=== PATIENT | male | born 1965 | race Caucasian/White ===

== ENCOUNTER 2019-02-10 16:21 | Emergency (ER) | payer MEDICARE ==
[2019-02-10] MEDS ORDERED: ONDANSETRON 4 MG/2 ML VIAL IVP STA (16:50)
[2019-02-10] MEDS ORDERED: SODIUM CHLORIDE 0.9% 500 ML 500 ML IV STA (16:50)
--- NOTE | 2019-02-10 17:07 | ED ---
Abdominal Pain HPI - General Chief Complaint: Abdominal Pain Stated Complaint: Abd Pain Time Seen by Provider: 02/10/19 16:38 Source: patient Mode of arrival: ambulatory Limitations: no limitations - History of Present Illness Initial Comments: Patient is a 54-year-old male presenting to the emergency Department complains of centralized abdominal pain as follows back pain, nausea, vomiting that started today. Patient has past medical history of hypertension, end-stage renal disease on dialysis, diabetes. Patient states he describes this pain as being a centralized in the abdomen that is eating referred to his back to both kidney areas. Patient denies any injuries or trauma to his back or abdomen. Patient does have a peritoneal dialysis port in place 2 months. Patient states he drank an ensure drink earlier this morning and then started noticing nausea and had episode of vomiting. Patient states that is when his abdominal and back pain started as well. Patient states he does have a history of kidney stones. Patient denies fever, chills, diarrhea, hematuria at this time. Patient has no other complaints at this time. Upon arrival to ER, vital signs are stable. - Related Data Allergies Allergy/AdvReac Type Severity Reaction Status Date / Time No Known Allergies Allergy Verified 02/10/19 16:37 Review of Systems ROS Statement: Those systems with pertinent positive or pertinent negative responses have been documented in the HPI. ROS Other: All systems not noted in ROS Statement are negative. Past Medical History Past Medical History: No Reported History, Diabetes Mellitus, Hypertension Additional Past Medical History / Comment(s): CHF. peritoneal port in abdomen. stage 4 kidney failure. History of Any Multi-Drug Resistant Organisms: None Reported Past Surgical History: Coronary Bypass/CABG, Heart Catheterization With Stent Additional Past Surgical History / Comment(s): Port in abdomen. Defibrillator. Hernia Repair - inguinal Past Psychological History: No Psychological Hx Reported Smoking Status: Never smoker Past Alcohol Use History: None Reported Past Drug Use History: None Reported General Exam - General Exam Comments Initial Comments: GENERAL: Well-appearing, well-nourished and in no acute distress. HEAD: Atraumatic, normocephalic. EYES: Pupils equal round and reactive to light, extraocular movements intact, sclera anicteric, conjunctiva are normal. ENT: TMs normal, nares patent, oropharynx clear without exudates. Moist mucous membranes. NECK: Normal range of motion, supple without lymphadenopathy or JVD. LUNGS: Breath sounds clear to auscultation bilaterally and equal. No wheezes rales or rhonchi. HEART: Regular rate and rhythm without murmurs, rubs or gallops. ABDOMEN: Peritoneal dialysis port in place, no signs of infection. Soft, nontender, normoactive bowel sounds. No guarding, no rebound. No masses appreciated. No pain to palpation in the lower back or flank area. : Deferred EXTREMITIES: Normal range of motion, no pitting or edema. No clubbing or cyanosis. NEUROLOGICAL: Cranial nerves II through XII grossly intact. Normal speech, normal gait. PSYCH: Normal mood, normal affect. SKIN: Warm, Dry, normal turgor, no rashes or lesions noted. Limitations: no limitations Course Vital Signs 02/10/19 02/10/19 16:33 18:21 Temperature 97.3 F L 97.1 F L Pulse Rate 66 65 Respiratory 16 18 Rate Blood Pressure 158/91 137/80 O2 Sat by Pulse 100 100 Oximetry Medical Decision Making - Medical Decision Making Patient is a 54-year-old male presenting with abdominal pain as radiating to low back that started this morning. Patient has history of diabetes, end-stage renal disease on dialysis, and hypertension. Patient states the pain started after he drank an ensure this morning. Vital signs are stable upon arrival, on exam patient has no tenderness to palpation of the abdomen or low back flank areas. Rest of exam is unremarkable.. He'll dialysis port is in place, no signs of infection. CBC, coags are within normal limits. Patient's BUN and creatinine are 48/4.10. Lipase is 303. UA shows 2+ protein otherwise normal. A she was given half a liter of fluids. Upon recheck patient states his symptoms have improved and he has no pain at all. I recommended patient to have an abdominal CT given his history and symptoms and patient declined, stating his pain is gone. Patient is stable for discharge at this time. Strict return parameters were discussed with the patient he verbalizes understanding and agreement. Case discussed with Dr. Del Angel. - Lab Data Result diagrams: 02/10/19 17:06 02/10/19 17:00 Lab Results 02/10/19 02/10/19 02/10/19 Range/Units 17:00 17:00 17:00 WBC (3.8-10.6) k/uL RBC (4.30-5.90) m/uL Hgb (13.0-17.5) gm/dL Hct (39.0-53.0) % MCV (80.0-100.0) fL MCH (25.0-35.0) pg MCHC (31.0-37.0) g/dL RDW (11.5-15.5) % Plt Count (150-450) k/uL Neutrophils % % Lymphocytes % % Monocytes % % Eosinophils % % Basophils % % Neutrophils # (1.3-7.7) k/uL Lymphocytes # (1.0-4.8) k/uL Monocytes # (0-1.0) k/uL Eosinophils # (0-0.7) k/uL Basophils # (0-0.2) k/uL PT 10.1 (9.0-12.0) sec INR 0.9 (<1.2) APTT 25.6 (22.0-30.0) sec Sodium 142 (137-145) mmol/L Potassium 5.1 (3.5-5.1) mmol/L Chloride 104 (98-107) mmol/L Carbon Dioxide 28 (22-30) mmol/L Anion Gap 10 mmol/L BUN 48 H (9-20) mg/dL Creatinine 4.10 H (0.66-1.25) mg/dL Est GFR (CKD-EPI)AfAm 18 (>60 ml/min/1.73 sqM) Est GFR (CKD-EPI)NonAf 15 (>60 ml/min/1.73 sqM) Glucose 94 (74-99) mg/dL Calcium 9.0 (8.4-10.2) mg/dL Total Bilirubin 0.5 (0.2-1.3) mg/dL AST 34 (17-59) U/L ALT 34 (21-72) U/L Alkaline Phosphatase 71 (38-126) U/L Total Protein 7.0 (6.3-8.2) g/dL Albumin 4.3 (3.5-5.0) g/dL Amylase 64 (30-110) U/L Lipase 303 H (23-300) U/L Urine Color Light Yellow Urine Appearance Clear (Clear) Urine pH 7.5 (5.0-8.0) Ur Specific [place] 1.009 (1.001-1.035) Urine Protein 2+ H (Negative) Urine Glucose (UA) Negative (Negative) Urine Ketones Negative (Negative) Urine Blood Negative (Negative) Urine Nitrite Negative (Negative) Urine Bilirubin Negative (Negative) Urine Urobilinogen <2.0 (<2.0) mg/dL Ur Leukocyte Esterase Negative (Negative) Urine RBC 1 (0-5) /hpf Urine WBC 1 (0-5) /hpf 02/10/19 Range/Units 17:06 WBC 7.2 (3.8-10.6) k/uL RBC 3.90 L (4.30-5.90) m/uL Hgb 12.2 L (13.0-17.5) gm/dL Hct 36.3 L (39.0-53.0) % MCV 93.2 (80.0-100.0) fL MCH 31.4 (25.0-35.0) pg MCHC 33.7 (31.0-37.0) g/dL RDW 15.9 H (11.5-15.5) % Plt Count 173 (150-450) k/uL Neutrophils % 73 % Lymphocytes % 16 % Monocytes % 6 % Eosinophils % 4 % Basophils % 1 % Neutrophils # 5.2 (1.3-7.7) k/uL Lymphocytes # 1.1 (1.0-4.8) k/uL Monocytes # 0.4 (0-1.0) k/uL Eosinophils # 0.3 (0-0.7) k/uL Basophils # 0.0 (0-0.2) k/uL PT (9.0-12.0) sec INR (<1.2) APTT (22.0-30.0) sec Sodium (137-145) mmol/L Potassium (3.5-5.1) mmol/L Chloride (98-107) mmol/L Carbon Dioxide (22-30) mmol/L Anion Gap mmol/L BUN (9-20) mg/dL Creatinine (0.66-1.25) mg/dL Est GFR (CKD-EPI)AfAm (>60 ml/min/1.73 sqM) Est GFR (CKD-EPI)NonAf (>60 ml/min/1.73 sqM) Glucose (74-99) mg/dL Calcium (8.4-10.2) mg/dL Total Bilirubin (0.2-1.3) mg/dL AST (17-59) U/L ALT (21-72) U/L Alkaline Phosphatase (38-126) U/L Total Protein (6.3-8.2) g/dL Albumin (3.5-5.0) g/dL Amylase (30-110) U/L Lipase (23-300) U/L Urine Color Urine Appearance (Clear) Urine pH (5.0-8.0) Ur Specific [place] (1.001-1.035) Urine Protein (Negative) Urine Glucose (UA) (Negative) Urine Ketones (Negative) Urine Blood (Negative) Urine Nitrite (Negative) Urine Bilirubin (Negative) Urine Urobilinogen (<2.0) mg/dL Ur Leukocyte Esterase (Negative) Urine RBC (0-5) /hpf Urine WBC (0-5) /hpf Disposition Clinical Impression: Abdominal pain Disposition: HOME SELF-CARE Condition: Stable Instructions (If sedation given, give patient instructions): Abdominal Pain (ED) Additional Instructions: Please return to the Emergency Department if symptoms worsen or any other concerns. Follow-up with Dr. goncalves as needed Is patient prescribed a controlled substance at d/c from ED?: No Referrals: Ellen Mccartney DO [Primary Care Provider] - 1-2 days
[2019-02-10 17:17] LABS: Basophils % (A) 1 %; Eosinophils # (A) 0.3 k/uL (0-0.7); Eosinophils % (A) 4 %; HCT 36.3 % (39.0-53.0); HGB 12.2 gm/dL (13.0-17.5); Lymphocytes # (A) 1.1 k/uL (1.0-4.8); Lymphocytes % (A) 16 %; MCH 31.4 pg (25.0-35.0); MCHC 33.7 g/dL (31.0-37.0); MCV 93.2 fL (80.0-100.0); Monocytes # (A) 0.4 k/uL (0-1.0); Monocytes % (A) 6 %; Neutrophils # (A) 5.2 k/uL (1.3-7.7); Neutrophils % (A) 73 %; Platelet Count 173 k/uL (150-450); RDW 15.9 % (11.5-15.5); WBC 7.2 k/uL (3.8-10.6)
[2019-02-10 17:24] LABS: Appearance,Urine Clear (Clear); Bilirubin,Urine Negative (Negative); Blood,Urine Negative (Negative); Color,Urine Light Yellow; Glucose,Urine (UA) Negative (Negative); Ketones,Urine Negative (Negative); Leukocyte Esterase,Urine Negative (Negative); Nitrite,Urine Negative (Negative); PH, Urine 7.5 (5.0-8.0); Protein,Urine 2+ (Negative); RBC,Urine 1 /hpf (0-5); Specific Gravity,Urine 1.009 (1.001-1.035); Urobilinogen,Urine <2.0 mg/dL (<2.0)
[2019-02-10 17:26] LABS: INR 0.9 (<1.2); Partial Thromboplastin Time 25.6 sec (22.0-30.0); Prothrombin Time 10.1 sec (9.0-12.0)
[2019-02-10 17:31] LABS: Albumin 4.3 g/dL (3.5-5.0); Potassium 5.1 mmol/L (3.5-5.1); Total Bilirubin 0.5 mg/dL (0.2-1.3)
[2019-02-10 18:22] VITALS: BP 137/80; PULSE 65; RESP 18; TEMP 97.1
== END 2019-02-10 18:50 | disposition home or self-care (01) ==
LOC: EC 16:21
DX: R10.9 Unspecified abdominal pain (principal); R11.2 Nausea with vomiting, unspecified; M54.9 Dorsalgia, unspecified; I13.2 Hypertensive heart and chronic kidney disease with heart failure and with stage 5 chronic kidney disease, or end stage renal disease; I50.9 Heart failure, unspecified; N18.6 End stage renal disease; E11.22 Type 2 diabetes mellitus with diabetic chronic kidney disease; Z99.2 Dependence on renal dialysis; Z95.1 Presence of aortocoronary bypass graft; Z95.5 Presence of coronary angioplasty implant and graft; Z95.810 Presence of automatic (implantable) cardiac defibrillator; Z98.890 Other specified postprocedural states; Z87.442 Personal history of urinary calculi
CPT/HCPCS: 36415; 80053; 82150; 83690; 85025; 85610; 85730; 81001; 99284; 96374; 96361; J2405

== ENCOUNTER 2019-05-10 16:59 | Emergency (ER) | payer MEDICARE, BC ==
[2019-05-10 18:03] LABS: Basophils # (A) 0.1 k/uL (0-0.2); Basophils % (A) 2 %; Eosinophils # (A) 0.2 k/uL (0-0.7); Eosinophils % (A) 5 %; HCT 38.5 % (39.0-53.0); HGB 12.7 gm/dL (13.0-17.5); Lymphocytes # (A) 1.4 k/uL (1.0-4.8); Lymphocytes % (A) 30 %; MCH 30.8 pg (25.0-35.0); MCV 93.5 fL (80.0-100.0); Mean Platelet Volume 8.3; Monocytes # (A) 0.4 k/uL (0-1.0); Monocytes % (A) 8 %; Neutrophils # (A) 2.5 k/uL (1.3-7.7); Neutrophils % (A) 54 %; Platelet Count 181 k/uL (150-450); RBC 4.12 m/uL (4.30-5.90); WBC 4.7 k/uL (3.8-10.6)
[2019-05-10 18:07] LABS: Albumin 3.6 g/dL (3.5-5.0); Calcium 8.2 mg/dL (8.4-10.2); Potassium 5.3 mmol/L (3.5-5.1); Total Bilirubin 0.7 mg/dL (0.2-1.3); Total Protein 6.2 g/dL (6.3-8.2)
[2019-05-10 18:29] VITALS: RESP 18
[2019-05-10] MEDS ORDERED: CEFDINIR 300 MG CAP PO STA (18:41)
[2019-05-10] MEDS ORDERED: LEVOFLOXACIN 250 MG TAB PO STA (18:46)
--- NOTE | 2019-05-10 19:04 | ED ---
General Adult HPI - General Chief complaint: ENT Stated complaint: Ear pain/infection Time Seen by Provider: 05/10/19 17:09 Source: patient, RN notes reviewed, old records reviewed Mode of arrival: ambulatory Limitations: no limitations - History of Present Illness Initial comments: 54-year-old male patient with extensive past history including type 1 diabetes, chronic kidney disease on peritoneal dialysis, congestive heart failure presents to ED for chief complaint of right otalgia. Patient reports that began on Monday. Patient was seen by his primary care provider where he was started on Augmentin and a in her ear CAT scan without contrast was ordered. Patient reports that on Monday he loses tympanic membrane ruptured. Patient had approximately 2 days of otorrhea decreased hearing out of the right ear. Patient has not yet followed up with ENT. Patient reports that the pain is regular has been worse, called his primary care provider and was recommended to present to the emergency department. Denies any other complaints at this time. Systemic: Pt denies fatigue, fever/chills, rash. Pt denies weakness, night sweats, weight loss. Neuro: Pt denies headache, visual disturbances, syncope or pre-syncope. HEENT: Pt denies ocular discharge or irritation, otalgia, rhinorrhea, pharyngitis or notable lymphadenopathy. Cardiopulmonary: Pt denies chest pain, SOB, heart palpitations, dyspnea on exertion. Abdominal/GI: Pt denies abdominal pain, n/v/d. : Pt denies dysuria, burning w/ urination, frequency/urgency. Denies new onset urinary or bowel incontinence. MSK: Pt denies myalgia, loss of strength or function in extremities. Neuro: Pt denies new onset weakness, paresthesias. - Related Data Previous Rx's Medication Instructions Recorded Amoxicillin/Potassium Clav 1 tab PO Q24HR 10 Days #10 tab 05/10/19 [Augmentin 500-125 Tablet] Levofloxacin [Levaquin] 250 mg PO Q24HR 10 Days #5 tab 05/10/19 Allergies Allergy/AdvReac Type Severity Reaction Status Date / Time fish oil Allergy Chest Pain Verified 05/10/19 17:08 promethazine [From Phenergan] Allergy Hallucinati Verified 05/10/19 17:08 ons Review of Systems ROS Statement: Those systems with pertinent positive or pertinent negative responses have been documented in the HPI. ROS Other: All systems not noted in ROS Statement are negative. Past Medical History Past Medical History: No Reported History, Diabetes Mellitus, Hypertension Additional Past Medical History / Comment(s): CHF. peritoneal port in abdomen. stage 4 kidney failure. History of Any Multi-Drug Resistant Organisms: None Reported Past Surgical History: Coronary Bypass/CABG, Heart Catheterization With Stent Additional Past Surgical History / Comment(s): Port in abdomen. Defibrillator. Hernia Repair - inguinal Past Psychological History: No Psychological Hx Reported Smoking Status: Never smoker Past Alcohol Use History: None Reported Past Drug Use History: None Reported General Exam - General Exam Comments Initial Comments: Constitutional: NAD, AOX3, Pt has pleasant affect. HEENT: NC/AT, trachea midline, neck supple, no lymphadenopathy. Posterior pharynx non erythematous, without exudates. External ears appear normal, without discharge. Mucous membranes moist. Eyes PERRLA, EOM intact. There is no scleral icterus. No pallor noted. Cardiopulmonary: RRR, no murmurs, rubs or gallops, no JVD noted. Lungs CTAB in anterior and posterior munoz. No peripheral edema. Abdominal exam: Abdomen soft and non-distended. Abdomen non-tender to palpation in all 4 quadrants. Bowel sounds active in LLQ. No hepatosplenomegaly. No ecchymosis Neuro: CN II-XII grossly intact. No nuchal rigidity. No raccon eyes, no xiong sign, no hemotympanum. No cervical spinal tenderness. MSK: No posterior calf tenderness bilaterally, homans sign negative bilaterally. Posterior tibialis and radial pulse +2 bilaterally. Sensation intact in upper and lower extremities. Full active ROM in upper and lower extremities, 5/5 stregnth. Limitations: no limitations Course Vital Signs 05/10/19 05/10/19 17:03 18:27 Temperature 97.9 F Pulse Rate 63 67 Respiratory 20 18 Rate Blood Pressure 154/90 121/77 O2 Sat by Pulse 100 97 Oximetry Medical Decision Making - Medical Decision Making 54-year-old male patient presented for chief complaint of right ear pain. Patient was seen by his primary on Monday. Augmentin. Patient had a CT of the interview without contrast, then Augmentin sounds. A 2 days of otorrhea which is stopped today. Reports the pain is still bad. Called his primary recommended presentation to emergency department. Patient vital signs stable, afebrile. Physical exam consistent with right otitis media with perforation. Discussed case with patient's primary care provider Ellen Mccartney. She stated that patient had a CAT scan of the review without contrast which displayed possible otitis media, possible mastoiditis. She also reports that patient was instructed to follow up with ENT however they have not. She states that he called the office complaining continued pain today and they recommended prevent the emergency department. Physical exam this time does not display any signs of mastoiditis. Lymphatic investigations are stable at this time. Moderately elevated glucose. Creatinine around baseline. Mildly elevated potassium of 5.3. EKG nonischemic. Patient will have peritoneal dialysis tonight. Levaquin will be added on a shins antibiotics. Will continue to take Augmentin. Will fo llow up with ENT tomorrow. We'll turn the ER physician worsens. Case discussed with Dr. Dumont. - Lab Data Result diagrams: 05/10/19 17:45 05/10/19 17:45 Lab Results 05/10/19 05/10/19 05/10/19 Range/Units 17:45 17:45 17:45 WBC 4.7 (3.8-10.6) k/uL RBC 4.12 L (4.30-5.90) m/uL Hgb 12.7 L (13.0-17.5) gm/dL Hct 38.5 L (39.0-53.0) % MCV 93.5 (80.0-100.0) fL MCH 30.8 (25.0-35.0) pg MCHC 33.0 (31.0-37.0) g/dL RDW 13.0 (11.5-15.5) % Plt Count 181 (150-450) k/uL Neutrophils % 54 % Lymphocytes % 30 % Monocytes % 8 % Eosinophils % 5 % Basophils % 2 % Neutrophils # 2.5 (1.3-7.7) k/uL Lymphocytes # 1.4 (1.0-4.8) k/uL Monocytes # 0.4 (0-1.0) k/uL Eosinophils # 0.2 (0-0.7) k/uL Basophils # 0.1 (0-0.2) k/uL Sodium 135 L (137-145) mmol/L Potassium 5.3 H (3.5-5.1) mmol/L Chloride 102 (98-107) mmol/L Carbon Dioxide 25 (22-30) mmol/L Anion Gap 8 mmol/L BUN 49 H (9-20) mg/dL Creatinine 4.11 H (0.66-1.25) mg/dL Est GFR (CKD-EPI)AfAm 18 (>60 ml/min/1.73 sqM) Est GFR (CKD-EPI)NonAf 15 (>60 ml/min/1.73 sqM) Glucose 238 H (74-99) mg/dL Plasma Lactic Acid Antoni 1.0 (0.7-2.0) mmol/L Calcium 8.2 L (8.4-10.2) mg/dL Total Bilirubin 0.7 (0.2-1.3) mg/dL AST 35 (17-59) U/L ALT 18 (4-49) U/L Alkaline Phosphatase 76 (38-126) U/L Total Protein 6.2 L (6.3-8.2) g/dL Albumin 3.6 (3.5-5.0) g/dL - EKG Data -: EKG Interpreted by Me (and Dr. Dumont ) EKG Comments: ventricular rate 65, [place] interval 202, QRS 134, QT/QTc 466 S4 84. Normal sensation, nonspecific intraventricular block. T wave abnormality. No concern for acute ischemia at this time. Disposition Clinical Impression: Acute otitis media with perforated tympanic membrane Disposition: HOME SELF-CARE Condition: Stable Instructions (If sedation given, give patient instructions): Ear Infection (ED), Ruptured Eardrum (ED) Additional Instructions: continue to take antbiotics as directed. Follow up with primary care provider tomorrow. Follow up with ENT tomorrow. Return to ER if condition worsens. Prescriptions: Amoxicillin/Potassium Clav [Augmentin 500-125 Tablet] 1 tab PO Q24HR 10 Days #10 tab Levofloxacin [Levaquin] 250 mg PO Q24HR 10 Days #5 tab Is patient prescribed a controlled substance at d/c from ED?: No Referrals: Ellen Mccartney DO [Primary Care Provider] - 1-2 days Serafin Tobias MD [STAFF PHYSICIAN] - 1-2 days
[2019-05-10] MEDS ORDERED: ACET/COD 300 MG/30 MG STARTER PACK 6 TAB BTL PO STA (19:16)
--- NOTE | 2019-05-10 19:16 | ED ---
Medical Decision Making - Medical Decision Making Constitutional: NAD, AOX3, Pt has pleasant affect. HEENT: NC/AT, trachea midline, neck supple, no lymphadenopathy. Posterior pharynx non erythematous, without exudates. External ears appear normal, without discharge. right tympanic membrane mildly erythematous, consistent with perfo ration. Left tympanic membrane pale higgins, or discharge. No mastoid tenderness or erythema bilaterally.Mucous membranes moist. Eyes PERRLA, EOM intact. There is no scleral icterus. No pallor noted. Cardiopulmonary: RRR, no murmurs, rubs or gallops, no JVD noted. Lungs CTAB in anterior and posterior munoz. No peripheral edema. Abdominal exam: Abdomen soft and non-distended. Abdomen non-tender to palpation in all 4 quadrants. Bowel sounds active in LLQ. No hepatosplenomegaly. No ecchymosis Neuro: CN II-XII grossly intact. No nuchal rigidity. No raccon eyes, no xiong sign, no hemotympanum. No cervical spinal tenderness. MSK: No posterior calf tenderness bilaterally, homans sign negative bilaterally. Posterior tibialis and radial pulse +2 bilaterally. Sensation intact in upper and lower extremities. Full active ROM in upper and lower extremities, 5/5 stregnth. - Lab Data Result diagrams: 05/10/19 17:45 05/10/19 17:45 Lab Results 05/10/19 05/10/19 05/10/19 Range/Units 17:45 17:45 17:45 WBC 4.7 (3.8-10.6) k/uL RBC 4.12 L (4.30-5.90) m/uL Hgb 12.7 L (13.0-17.5) gm/dL Hct 38.5 L (39.0-53.0) % MCV 93.5 (80.0-100.0) fL MCH 30.8 (25.0-35.0) pg MCHC 33.0 (31.0-37.0) g/dL RDW 13.0 (11.5-15.5) % Plt Count 181 (150-450) k/uL Neutrophils % 54 % Lymphocytes % 30 % Monocytes % 8 % Eosinophils % 5 % Basophils % 2 % Neutrophils # 2.5 (1.3-7.7) k/uL Lymphocytes # 1.4 (1.0-4.8) k/uL Monocytes # 0.4 (0-1.0) k/uL Eosinophils # 0.2 (0-0.7) k/uL Basophils # 0.1 (0-0.2) k/uL Sodium 135 L (137-145) mmol/L Potassium 5.3 H (3.5-5.1) mmol/L Chloride 102 (98-107) mmol/L Carbon Dioxide 25 (22-30) mmol/L Anion Gap 8 mmol/L BUN 49 H (9-20) mg/dL Creatinine 4.11 H (0.66-1.25) mg/dL Est GFR (CKD-EPI)AfAm 18 (>60 ml/min/1.73 sqM) Est GFR (CKD-EPI)NonAf 15 (>60 ml/min/1.73 sqM) Glucose 238 H (74-99) mg/dL Plasma Lactic Acid Antoni 1.0 (0.7-2.0) mmol/L Calcium 8.2 L (8.4-10.2) mg/dL Total Bilirubin 0.7 (0.2-1.3) mg/dL AST 35 (17-59) U/L ALT 18 (4-49) U/L Alkaline Phosphatase 76 (38-126) U/L Total Protein 6.2 L (6.3-8.2) g/dL Albumin 3.6 (3.5-5.0) g/dL Disposition Clinical Impression: Acute otitis media with perforated tympanic membrane Disposition: HOME SELF-CARE Condition: Stable Instructions (If sedation given, give patient instructions): Ruptured Eardrum (ED), Ear Infection (ED) Additional Instructions: continue to take antbiotics as directed. Follow up with primary care provider tomorrow. Follow up with ENT tomorrow. Return to ER if condition worsens. Prescriptions: Amoxicillin/Potassium Clav [Augmentin 500-125 Tablet] 1 tab PO Q24HR 10 Days #10 tab Levofloxacin [Levaquin] 250 mg PO DIRECTED 10 Days #5 tab Is patient prescribed a controlled substance at d/c from ED?: No Referrals: Ellen Mccartney DO [Primary Care Provider] - 1-2 days Serafin Tobias MD [STAFF PHYSICIAN] - 1-2 days
[2019-05-10 19:23] VITALS: BP 122/73; PULSE 63; TEMP 98.4
== END 2019-05-10 19:24 | disposition home or self-care (01) ==
LOC: EC 16:59
DX: H66.91 Otitis media, unspecified, right ear (principal); H72.91 Unspecified perforation of tympanic membrane, right ear; E10.65 Type 1 diabetes mellitus with hyperglycemia; E87.5 Hyperkalemia; I13.0 Hypertensive heart and chronic kidney disease with heart failure and stage 1 through stage 4 chronic kidney disease, or unspecified chronic kidney disease; E10.22 Type 1 diabetes mellitus with diabetic chronic kidney disease; N18.4 Chronic kidney disease, stage 4 (severe); I50.9 Heart failure, unspecified; Z99.2 Dependence on renal dialysis; Z91.013 Allergy to seafood; Z88.8 Allergy status to other drugs, medicaments and biological substances; Z95.1 Presence of aortocoronary bypass graft; Z95.5 Presence of coronary angioplasty implant and graft; Z95.810 Presence of automatic (implantable) cardiac defibrillator
CPT/HCPCS: 36415; 80053; 83605; 85025; 87040; 93005; 99284

== ENCOUNTER 2019-10-14 12:09 | Inpatient (IN) | payer MEDICARE, BC ==
[2019-10-14] MEDS ORDERED: ONDANSETRON 4 MG/2 ML VIAL IVP STA (12:40)
[2019-10-14] MEDS ORDERED: SODIUM CHLORIDE 0.9% 500 ML 500 ML IV STA (12:40)
[2019-10-14] MEDS ORDERED: FAMOTIDINE 20 MG/2 ML VIAL IV STA (12:40)
--- NOTE | 2019-10-14 12:47 | ED ---
Recheck HPI - General Chief Complaint: Recheck/Abnormal Lab/Rx Stated Complaint: dehydration Time Seen by Provider: 10/14/19 12:26 Source: patient, RN notes reviewed Mode of arrival: ambulatory Limitations: no limitations - History of Present Illness Initial Comments: This a 54-year-old male presents emergency Department with concerns of possible dehydration. Patient states his started on a statin drug by his PCP on states he vomited all day and Monday. Patient states he does still feels dehydrated. Patient states that his veins do not his biggest usual. He states he still been doing his peritoneal dialysis. Patient states that he does feel somewhat improved but just not his usual self. No chest pain or shortness breath no headache or dizziness. No fevers chills. - Related Data Previous Rx's Medication Instructions Recorded Amoxicillin/Potassium Clav 1 tab PO Q24HR 10 Days #10 tab 05/10/19 [Augmentin 500-125 Tablet] Levofloxacin [Levaquin] 250 mg PO DIRECTED 10 Days #5 05/10/19 tab Allergies Allergy/AdvReac Type Severity Reaction Status Date / Time fish oil Allergy Chest Pain Verified 10/14/19 12:17 promethazine [From Phenergan] Allergy Hallucinati Verified 10/14/19 12:17 ons Review of Systems ROS Statement: Those systems with pertinent positive or pertinent negative responses have been documented in the HPI. ROS Other: All systems not noted in ROS Statement are negative. Past Medical History Past Medical History: Diabetes Mellitus, Hypertension Additional Past Medical History / Comment(s): CHF. peritoneal port in abdomen. stage 4 kidney failure. History of Any Multi-Drug Resistant Organisms: None Reported Past Surgical History: Coronary Bypass/CABG, Heart Catheterization With Stent Additional Past Surgical History / Comment(s): Port in abdomen. Defibrillator. Hernia Repair - inguinal Past Psychological History: No Psychological Hx Reported Smoking Status: Never smoker Past Alcohol Use History: None Reported Past Drug Use History: None Reported General Exam Limitations: no limitations General appearance: alert, in no apparent distress Head exam: Present: atraumatic, normocephalic, normal inspection Eye exam: Present: normal appearance, PERRL, EOMI. Absent: scleral icterus, conjunctival injection, periorbital swelling ENT exam: Present: normal exam, normal oropharynx, mucous membranes moist Neck exam: Present: normal inspection. Absent: tenderness, meningismus, lymphadenopathy Respiratory exam: Present: normal lung sounds bilaterally. Absent: respiratory distress, wheezes, rales, rhonchi, stridor Cardiovascular Exam: Present: regular rate, normal rhythm, normal heart sounds. Absent: systolic murmur, diastolic murmur, rubs, gallop, clicks GI/Abdominal exam: Present: soft, normal bowel sounds, other (Peritoneal catheter noted, no erythema no purulent drainage). Absent: distended, tenderness, guarding, rebound, rigid Back exam: Absent: CVA tenderness (R), CVA tenderness (L) Neurological exam: Present: alert, oriented X3 Skin exam: Present: warm, dry, intact, normal color. Absent: rash Course Vital Signs 10/14/19 10/14/19 12:14 14:30 Temperature 98.0 F Pulse Rate 69 66 Respiratory 18 18 Rate Blood Pressure 131/83 126/80 O2 Sat by Pulse 100 98 Oximetry Medical Decision Making - Medical Decision Making 53-year-old male presents to emergency from for dehydration. Patient's found to have cranial 9.3 which is increased from his baseline, hyperkalemia. Patient's case discussed with on-call refractory grinder operator Dr. Hogan who recommended to treat the hyperkalemia and had patient admitted. - Lab Data Result diagrams: 10/14/19 13:30 10/14/19 13:30 Lab Results 10/14/19 10/14/19 10/14/19 Range/Units 13:30 13:30 13:39 WBC 3.9 (3.8-10.6) k/uL RBC 4.21 L (4.30-5.90) m/uL Hgb 12.6 L (13.0-17.5) gm/dL Hct 39.5 (39.0-53.0) % MCV 93.8 (80.0-100.0) fL MCH 30.0 (25.0-35.0) pg MCHC 32.0 (31.0-37.0) g/dL RDW 12.9 (11.5-15.5) % Plt Count 149 L (150-450) k/uL Neutrophils % 53 % Lymphocytes % 30 % Monocytes % 9 % Eosinophils % 4 % Basophils % 1 % Neutrophils # 2.1 (1.3-7.7) k/uL Lymphocytes # 1.2 (1.0-4.8) k/uL Monocytes # 0.4 (0-1.0) k/uL Eosinophils # 0.2 (0-0.7) k/uL Basophils # 0.0 (0-0.2) k/uL Sodium 133 L (137-145) mmol/L Potassium 6.1 H* (3.5-5.1) mmol/L Chloride 97 L (98-107) mmol/L Carbon Dioxide 26 (22-30) mmol/L Anion Gap 10 mmol/L BUN 57 H (9-20) mg/dL Creatinine 9.13 H* (0.66-1.25) mg/dL Est GFR (CKD-EPI)AfAm 7 (>60 ml/min/1.73 sqM) Est GFR (CKD-EPI)NonAf 6 (>60 ml/min/1.73 sqM) Glucose 128 H (74-99) mg/dL Calcium 7.3 L (8.4-10.2) mg/dL Total Bilirubin 0.5 (0.2-1.3) mg/dL AST 23 (17-59) U/L ALT 41 (4-49) U/L Alkaline Phosphatase 90 (38-126) U/L Total Protein 5.9 L (6.3-8.2) g/dL Albumin 3.4 L (3.5-5.0) g/dL Lipase 343 H (23-300) U/L Urine Color Light Yellow Urine Appearance Clear (Clear) Urine pH 8.0 (5.0-8.0) Ur Specific [place] 1.004 (1.001-1.035) Urine Protein 1+ H (Negative) Urine Glucose (UA) Negative (Negative) Urine Ketones Negative (Negative) Urine Blood Trace H (Negative) Urine Nitrite Negative (Negative) Urine Bilirubin Negative (Negative) Urine Urobilinogen <2.0 (<2.0) mg/dL Ur Leukocyte Esterase Negative (Negative) Urine RBC <1 (0-5) /hpf Urine WBC 1 (0-5) /hpf Disposition Clinical Impression: Hyperkalemia, Acute on chronic renal failure Disposition: ADMITTED IP TO THIS [facility] Condition: Fair Referrals: Ellen Mccartney DO [Primary Care Provider] - 1-2 days
[2019-10-14 13:45] LABS: Basophils % (A) 1 %; Eosinophils # (A) 0.2 k/uL (0-0.7); Eosinophils % (A) 4 %; HCT 39.5 % (39.0-53.0); HGB 12.6 gm/dL (13.0-17.5); Lymphocytes # (A) 1.2 k/uL (1.0-4.8); Lymphocytes % (A) 30 %; MCV 93.8 fL (80.0-100.0); Mean Platelet Volume 8.9; Monocytes # (A) 0.4 k/uL (0-1.0); Monocytes % (A) 9 %; Neutrophils # (A) 2.1 k/uL (1.3-7.7); Neutrophils % (A) 53 %; Platelet Count 149 k/uL (150-450); RBC 4.21 m/uL (4.30-5.90); RDW 12.9 % (11.5-15.5); WBC 3.9 k/uL (3.8-10.6)
[2019-10-14 13:48] LABS: Appearance,Urine Clear (Clear); Bilirubin,Urine Negative (Negative); Blood,Urine Trace (Negative); Color,Urine Light Yellow; Glucose,Urine (UA) Negative (Negative); Ketones,Urine Negative (Negative); Leukocyte Esterase,Urine Negative (Negative); Nitrite,Urine Negative (Negative); Protein,Urine 1+ (Negative); RBC,Urine <1 /hpf (0-5); Specific Gravity,Urine 1.004 (1.001-1.035); Urobilinogen,Urine <2.0 mg/dL (<2.0); WBC,Urine 1 /hpf (0-5)
[2019-10-14 13:57] LABS: Albumin 3.4 g/dL (3.5-5.0); Calcium 7.3 mg/dL (8.4-10.2); Total Bilirubin 0.5 mg/dL (0.2-1.3); Total Protein 5.9 g/dL (6.3-8.2)
[2019-10-14 14:18] LABS: Potassium 6.1 mmol/L (3.5-5.1)
[2019-10-14] MEDS ORDERED: DEXTROSE 50% SYRINGE 50 ML IVP ONE (15:18)
[2019-10-14] MEDS ORDERED: CALCIUM GLUCONATE 1 GM in SODIUM CHLORIDE 0.9% 100 ML IVPB ONE (15:18)
[2019-10-14] MEDS ORDERED: INSULIN REGULAR 100 UNIT/ML VIAL IV ONE (15:18)
[2019-10-14] MEDS ORDERED: NALOXONE 0.4 MG/ML 1 ML VIAL IV PRN (15:22)
[2019-10-14 19:38] LABS: Glucose,Whole Blood 88 mg/dL (75-99)
[2019-10-14] MEDS ORDERED: NITROGLYCERIN SL TABS 0.4 MG TAB SUBLINGUAL PRN (20:26)
[2019-10-14] MEDS ORDERED: DIAZEPAM 5 MG TAB PO PRN (20:26)
[2019-10-14] MEDS ORDERED: HYDROcodone/APAP 5-325MG 1 EACH TAB PO PRN (20:27)
[2019-10-14] MEDS ORDERED: Insulin Aspart (For Pump) 100 UNIT/ML VIAL SQ-PUMP SCH (20:30)
[2019-10-14 20:42] LABS: Glucose,Whole Blood 94 mg/dL (75-99)
[2019-10-14] MEDS: DIALYSIS (PERIT 1.5%) 2,000 ML 30 G/2,000 ML BAG INTRAPERIT SCH (21:14)
[2019-10-14 21:32] LABS: INR 0.9 (<1.2); Prothrombin Time 9.7 sec (9.0-12.0)
[2019-10-14] MEDS: RANOLAZINE 500 MG TAB.ER.12H PO SCH (21:58)
[2019-10-14] MEDS: ISOSORBIDE MONONITRATE ER 30 MG TAB.ER.24H PO SCH (21:58)
[2019-10-14] MEDS: PANTOPRAZOLE 40 MG/10 ML VIAL IVP SCH (21:59)
[2019-10-14] MEDS: HEPARIN SODIUM,PORCINE 5,000 UNIT/ML 1 ML VIAL SQ SCH (21:59)
--- NOTE | 2019-10-14 22:03 | HP ---
HISTORY AND PHYSICAL DATE OF SERVICE: 10/14/2019 CHIEF COMPLAINTS: Dehydration, weakness and vomiting. HISTORY OF PRESENT ILLNESS: This 54-year-old gentleman with a past medical history of diabetes, hypertension, CHF, history of CAD, CABG, CAD stent, being followed by Dr. Ellen Mccartney in the outpatient setting also seeing the social professionals at [facility] for chronic renal failure. Patient started on peritoneal dialysis and the patient does once at night exchange apparently and the patient is not feeling well for the last couple of days. Patient vomited and subsequently patient felt nauseous. Patient not eating well. The patient has taken a new statin recently. Patient came to [facility] because of weakness and other associated symptoms and the potassium was found to be 6.1. The patient was given insulin, glucose regimen and the potassium is currently at 5.4. Patient admitted for further evaluation and treatment. There is no history of fever, rigors. No history of headache, loss of consciousness, seizures at this time. PAST MEDICAL HISTORY: History of chronic renal failure, diabetes, hypertension, history of CAD, CHF, peritoneal dialysis. MEDICATIONS: 1. Imdur 30 mg p.r.n. 2. Valium 5 mg q.h.s. p.r.n. 3. Zinc 50 mg p.o. daily. 4. Vitamin D3 1000 daily. 5. Nitrostat 0.4 mg q.4 p.r.n. 6. Repatha 140 mg subcu 14 days. 7. Plavix 75 mg p.o. daily. 8. Ecotrin 81 mg p.o. 9. ER 500 mg p.o. b.i.d. 10.NovoLog insulin pump. 11.Vasotec 5 mg p.o. b.i.d. 12.Coreg 12.5 mg p.o. b.i.d. ALLERGIES: FISH OIL AND PHENERGAN. FAMILY HISTORY: No history of heart disease or strokes in the family. SOCIAL HISTORY: No history of smoking. No history of alcohol intake. REVIEW OF SYSTEMS: ENT: No diminished vision. No diminished hearing. CARDIOVASCULAR: No angina. Respiration: No cough or hemoptysis. GI no nausea or vomiting. as mentioned earlier. Nervous system: No numbness or weakness. ALLERGY/IMMUNOLOGY: No asthma or hayfever. MUSCULOSKELETAL as mentioned earlier. HEMATOLOGY/ONCOLOGY: No history of anemia. ENDOCRINE: As mentioned earlier. CONSTITUTIONAL: As mentioned earlier. DERMATOLOGY: Negative. RHEUMATOLOGY: Negative. PSYCHIATRIC: As mentioned earlier. PHYSICAL EXAMINATION: Alert and oriented times three. Pulse 70. Blood pressure 130/89, respiration 18, temperature 98 degrees, pulse ox 99 percent on room air. HEENT: Conjunctivae normal. Oral mucosa dry. Neck is no jugular venous distention. No carotid bruit. No lymph node enlargement. Cardiovascular system: S1, S2 muffled. No S3, no S4. Respiratory: Breath sounds diminished in the bases. A few scattered rhonchi. ABDOMEN: Soft. No distention. Peritoneal dialysis catheter present. Otherwise, no guarding or rigidity. Bowel sounds present. Legs: No edema. No swelling. Nervous system: Higher functions as mentioned. Moves all 4 limbs. No focal motor or sensory deficits. LYMPHATICS: No lymph nodes palpable in the neck, axillae or groin. SKIN: No ulcer. JOINTS: No active deforming arthropathy. LABS: WBC 3.2, hemoglobin 12.6, platelets 149. Sodium 130, potassium 6.1, creatinine 9.13, glucose 128, albumin 3.4. ASSESSMENT: 1. Severe hyperkalemia, possibly secondary to acute on chronic renal failure. 2. Chronic renal failure, on continuous peritoneal dialysis. 3. Dehydration present on admission. 4. Increased lipase. 5. Mild thrombocytopenia. 6. Anemia of chronic disease. 7. History of diabetes type 2. 8. Hypertension. 9. History of congestive heart failure, ejection fraction unknown. 11.CAD, CABG stent. 12.History of AICD. 13.History of inguinal hernia repair. 14.FULL CODE. RECOMMENDATIONS AND DISCUSSION: This 54-year-old gentleman presented with multiple complex medical issues, we will monitor the patient closely. Continue the current medication, symptomatic treatment. Otherwise at this time I recommend continue with cautious hydration. Otherwise peritoneal dialysis. Nephrology consultation. Resume the home medications. Symptomatic treatment. Repeat lytes in the morning. Prognosis guarded because of multiple complex medical issues. Further recommendations to follow. A copy of dictation being forwarded to Dr. Ellen Mccartney who is the primary physician. MMODL / IJN: [id number] / MTDD
[2019-10-14] MEDS: CARVEDILOL 12.5 MG TAB PO SCH (22:14)
[2019-10-15] MEDS: DIALYSIS (PERIT 1.5%) 2,000 ML 30 G/2,000 ML BAG INTRAPERIT SCH ×4 (00:52→18:10)
[2019-10-15 04:15] LABS: Appearance,BF Clear; Color,BF Colorless; Nucleated Cells, Body Fluid 66 /uL; RBC, Body Fluid 6 /uL
[2019-10-15 06:15] VITALS: RESP 18
[2019-10-15 06:57] LABS: Basophils % (A) 1 %; Eosinophils # (A) 0.2 k/uL (0-0.7); Eosinophils % (A) 4 %; HCT 39.8 % (39.0-53.0); Lymphocytes # (A) 1.2 k/uL (1.0-4.8); Lymphocytes % (A) 26 %; MCH 31.3 pg (25.0-35.0); MCHC 32.7 g/dL (31.0-37.0); MCV 95.6 fL (80.0-100.0); Mean Platelet Volume 8.5; Monocytes # (A) 0.4 k/uL (0-1.0); Monocytes % (A) 9 %; Neutrophils # (A) 2.6 k/uL (1.3-7.7); Neutrophils % (A) 58 %; Platelet Count 180 k/uL (150-450); RBC 4.17 m/uL (4.30-5.90); WBC 4.5 k/uL (3.8-10.6)
[2019-10-15 07:03] LABS: Glucose,Whole Blood 124 mg/dL (75-99)
[2019-10-15 07:08] LABS: Calcium 7.4 mg/dL (8.4-10.2); Potassium 5.4 mmol/L (3.5-5.1)
[2019-10-15] MEDS: HEPARIN SODIUM,PORCINE 5,000 UNIT/ML 1 ML VIAL SQ SCH (08:27)
[2019-10-15] MEDS: ISOSORBIDE MONONITRATE ER 30 MG TAB.ER.24H PO SCH (08:27)
[2019-10-15] MEDS: CARVEDILOL 12.5 MG TAB PO SCH ×2 (08:27→18:01)
[2019-10-15] MEDS: PANTOPRAZOLE 40 MG/10 ML VIAL IVP SCH (08:28)
[2019-10-15] MEDS: RANOLAZINE 500 MG TAB.ER.12H PO SCH (08:32)
[2019-10-15] MEDS: INSULIN PUMP MEAL BOLUS 1 UNIT MISC MISCELLANE SCH ×3 (08:44→18:01)
[2019-10-15] MEDS ORDERED: LISINOPRIL 20 MG TAB PO SCH (09:00)
[2019-10-15] MEDS ORDERED: CHOLECALCIFEROL 1,000 UNIT TAB PO SCH (09:00)
[2019-10-15] MEDS ORDERED: CLOPIDOGREL 75 MG TAB PO SCH (09:00)
[2019-10-15] MEDS ORDERED: ZINC SULFATE 220 MG CAP PO SCH (09:00)
--- NOTE | 2019-10-15 10:21 | P.NPCON ---
History of Present Illness - Reason for Consult end stage renal disease - History of Present Illness Reason for incision: End-stage renal disease History of present illness: The patient is a 54-year-old male seen in renal consultation for end-stage renal disease. He is maintained on peritoneal dialysis. He follows with a research project manager out of [place] [facility]. Etiology is diabetic kidney disease. Patient states evening he developed food poisoning and had multiple episodes of emesis. He denies any diarrhea. Denies fever or chills. No abdominal pain. Patient denies any problems with it until dialysis. Denies any edema. Denies cloudy dialysate. Patient states he felt weak and dehydrated and came to the hospital. His potassium level was 6.1 on admission and is down to 5.4 this morning. He was on enalapril at home and is now on lisinopril. Blood pressures controlled. Patient's initial cell count was 66. Culture is pending. He feels better now. Tolerating oral intake. Vom iting resolved. Vital signs are stable. General: The patient appeared well nourished and normally developed. HEENT: Head exam is unremarkable. Neck is without jugular venous distension. LUNGS: Lungs are clear to auscultation and percussion. Breath sounds decreased. HEART: Rate and Rhythm are regular. First and second heart sounds normal. No murmurs, rubs or gallops. ABDOMEN: Abdominal exam reveals normal bowel sounds. Non-tender and non- distended. EXTREMITITES: No clubbing, cyanosis, or edema. Past Medical History Past Medical History: Diabetes Mellitus, Hypertension Additional Past Medical History / Comment(s): CHF. peritoneal port in abdomen. stage 4 kidney failure. History of Any Multi-Drug Resistant Organisms: None Reported Past Surgical History: Coronary Bypass/CABG, Heart Catheterization With Stent Additional Past Surgical History / Comment(s): Port in abdomen. Defibrillator. Hernia Repair - inguinal Past Anesthesia/Blood Transfusion Reactions: No Reported Reaction Date of Last Stent Placement:: 2010 Past Psychological History: No Psychological Hx Reported Smoking Status: Never smoker Past Alcohol Use History: None Reported Past Drug Use History: None Reported Medications and Allergies Home Medications Medication Instructions Recorded Confirmed Type Aspirin EC [Ecotrin Low Dose] 81 mg PO DAILY 10/14/19 10/14/19 History Carvedilol 12.5 mg PO BID 10/14/19 10/14/19 History Cholecalciferol [Vitamin D3 (25 1,000 unit PO DAILY 10/14/19 10/14/19 History Mcg = 1000 Iu)] Clopidogrel [Plavix] 75 mg PO DAILY 10/14/19 10/14/19 History Diazepam [Valium] 5 mg PO HS PRN 10/14/19 10/14/19 History Enalapril [Vasotec] 5 mg PO Q12H 10/14/19 10/14/19 History Evolocumab [Repatha Syringe] 140 mg SQ Q14D 10/14/19 10/14/19 History Insulin Aspart (For Pump) [NovoLOG 0.01 unit SQ-PUMP CONTINUOUS 10/14/19 10/14/19 History (For Pump)] Isosorbide Mononitrate ER [Imdur] 30 mg PO DIRECTED 10/14/19 10/14/19 History Nitroglycerin Sl Tabs [Nitrostat] 0.4 mg SUBLINGUAL Q5M PRN 10/14/19 10/14/19 History Ranolazine [Ranolazine ER] 500 mg PO Q12H 10/14/19 10/14/19 History Zinc 50 mg PO DAILY 10/14/19 10/14/19 History Allergies Allergy/AdvReac Type Severity Reaction Status Date / Time fish oil Allergy Chest Pain Verified 10/14/19 17:08 promethazine [From Phenergan] Allergy Hallucinati Verified 10/14/19 17:08 ons Physical Exam Vitals: Vital Signs Temp Pulse Pulse Resp BP BP Pulse Ox 10/15/19 08:36 68 124/78 10/15/19 06:14 97.9 F 69 18 117/74 96 10/15/19 04:00 98.2 F 69 17 127/62 97 10/15/19 00:00 98 F 70 18 154/88 99 10/14/19 19:35 98.2 F 68 18 141/80 100 10/14/19 18:18 98.0 F 70 18 130/90 99 10/14/19 16:00 66 18 138/99 99 10/14/19 14:30 66 18 126/80 98 10/14/19 12:14 98.0 F 69 18 131/83 100 Intake and Output 10/14/19 10/15/19 10/15/19 22:59 06:59 14:59 Intake Total 300 Output Total 300 Balance 0 Intake: Oral 300 Output: Urine 300 Other: Voiding Method Urinal Urinal # Voids 1 Weight 77.111 kg 78.2 kg Results - Lab Results Most recent lab results Calcium 7.4 mg/dL (8.4-10.2) L 10/15/19 05:59 10/15/19 05:59 10/15/19 05:59 Assessment and Plan Plan: Assessment: 1. End-stage renal disease maintained on peritoneal dialysis. 2. Nausea and vomiting likely due to gastroenteritis. Improved. 3. Hyperkalemia secondary to chronic kidney disease and lisinopril. Better with medical management and dialysis. 4. Hypertension with chronic kidney disease. Controlled. 5. Insulin-dependent diabetes mellitus. Plan: Discontinue lisinopril. Monitor blood pressure - will add amlodipine if >140/90. Repeat potassium level this afternoon. Repeat dialysate cell count culture and Gram stain today. Maintain 1.5 L exchanges every 6 hours with 1.5% dextrose solution. Thank you for the catheterization. I will continue to follow the patient with you during his hospital stay.
[2019-10-15 12:10] LABS: Glucose,Whole Blood 139 mg/dL (75-99)
[2019-10-15 12:12] VITALS: BP 136/80; PULSE 71; TEMP 98.4
[2019-10-15 14:31] LABS: Glucose, BF Source Peritoneal Fluid; Glucose, Body Fluid 770 mg/dL
[2019-10-15 15:04] LABS: Appearance,BF Hazy; Color,BF Colorless; Nucleated Cells, Body Fluid 12 /uL; RBC, Body Fluid 33 /uL
[2019-10-15] MEDS ORDERED: DEXTROSE 50% SYRINGE 50 ML IVP STA (16:16)
[2019-10-15] MEDS ORDERED: INSULIN REGULAR 100 UNIT/ML VIAL IV ONE (16:16)
[2019-10-15 17:16] LABS: Glucose,Whole Blood 201 mg/dL (75-99)
--- NOTE | 2019-10-16 05:46 | DS ---
DISCHARGE SUMMARY FINAL DIAGNOSES: 1. Severe hyperkalemia, possibly secondary to acute on chronic renal failure. 2. Chronic renal failure on continuous peritoneal dialysis. 3. Dehydration, present on admission. 4. Increased lipase. 5. Mild thrombocytopenia. 6. Anemia of chronic disease. 7. History of diabetes mellitus type 2. 8. Hypertension. 9. History of congestive heart failure, ejection fraction unknown. 10.Coronary artery disease, coronary artery bypass grafting, stent. 11.History of AICD. 12.History of inguinal hernia repair. 13.FULL CODE. DISCHARGE DISPOSITION: The patient will be discharged in stable condition with guarded prognosis. Total time taken 35 minutes. HISTORY OF PRESENT ILLNESS: This 54-year-old gentleman with a past medical history of multiple medical problems being followed by Dr. Ellen Mccartney in the outpatient setting was admitted with severe hyperkalemia. The patient was also feeling not well. Patient was treated symptomatically for GERD. Patient improved significantly. The potassium still elevated 5.5, insulin glucose regimen was seen by Dr. Pickett and after repeat potassium if the potassium is normal, Dr. Pickett would like the patient be discharged. On exam, vitals are stable. CARDIOVASCULAR: S1, S2 muffled. ABDOMEN: Soft. NERVOUS SYSTEM: No focal deficits. DISCHARGE ADVICE: 1. Diet is cardiac. 2. Activity limited until followup. 3. Follow up with Dr. Ellen Mccartney in 1 to 2 days. 4. Follow up with Nephrology as recommended. Medications are: 1. Coreg 12.5 mg p.o. b.i.d. 2. Ecotrin 81 mg p.o. daily. 3. Nitroglycerin p.r.n. 4. Insulin pump to be continued. 5. Plavix 75 mg p.o. daily. 6. Evolocumab 140 mg q.14 days. 7. Valium 5 mg at bedtime p.r.n. 8. Vitamin D3, 1000 mg daily. 9. Zinc 50 mg p.o. daily. 10.Imdur ER 30 mg p.o. daily. 11.Protonix 40 mg p.o. daily. 12.Ranexa 500 mg p.o. b.i.d. Once again, the patient will be discharged in stable condition with guarded prognosis. MMODL / IJN: [id number] /
== END 2019-10-15 20:08 | disposition home or self-care (01) | DRG 640 ==
LOC: EC 12:09 → 3SCARD 15:29 → 5NMEDONC 10-15 05:29
PROVIDERS: ADMIT Hospitalist; ATTEND Hospitalist
DX: E87.5 Hyperkalemia (principal); N18.6 End stage renal disease; I13.2 Hypertensive heart and chronic kidney disease with heart failure and with stage 5 chronic kidney disease, or end stage renal disease; N17.9 Acute kidney failure, unspecified; D69.6 Thrombocytopenia, unspecified; D63.1 Anemia in chronic kidney disease; E11.22 Type 2 diabetes mellitus with diabetic chronic kidney disease; I50.9 Heart failure, unspecified; T46.4X5A Adverse effect of angiotensin-converting-enzyme inhibitors, initial encounter; E86.0 Dehydration; I25.10 Atherosclerotic heart disease of native coronary artery without angina pectoris; K21.9 Gastro-esophageal reflux disease without esophagitis; R74.8 Abnormal levels of other serum enzymes; Z11.59 Encounter for screening for other viral diseases; Z95.810 Presence of automatic (implantable) cardiac defibrillator; Z99.2 Dependence on renal dialysis; Z79.02 Long term (current) use of antithrombotics/antiplatelets; Z79.4 Long term (current) use of insulin; Z79.82 Long term (current) use of aspirin; Z79.899 Other long term (current) drug therapy; Z96.41 Presence of insulin pump (external) (internal); Z95.1 Presence of aortocoronary bypass graft; Z95.5 Presence of coronary angioplasty implant and graft; Z88.8 Allergy status to other drugs, medicaments and biological substances
CPT/HCPCS: 36415; 80048; 80053; 81001; 82945; 83690; 84132; 85025; 85610; 87070; 87205; 87635; 89050; 93005; 96361; 96365; 96366; 96375; 99285

== ENCOUNTER 2019-12-23 15:45 | Inpatient (IN) | payer MEDICARE, BC ==
[2019-12-23] MEDS ORDERED: FAMOTIDINE 20 MG/2 ML VIAL IV STA (16:10)
[2019-12-23] MEDS ORDERED: ONDANSETRON 4 MG/2 ML VIAL IVP STA (16:10)
[2019-12-23] MEDS ORDERED: MAG HYDROX/AL HYDROX/SIMETH 30 ML, HYOSCYAMINE ELIXIR 10 ML PO STA ×2 (16:10)
--- NOTE | 2019-12-23 16:13 | ED ---
Abdominal Pain HPI - General Chief Complaint: Abdominal Pain Stated Complaint: abd pain/burning Time Seen by Provider: 12/23/19 15:59 Source: patient, RN notes reviewed Mode of arrival: ambulatory Limitations: no limitations - History of Present Illness Initial Comments: This a 54-year-old male presents emergency Department chief complaint of epigastric pain. Patient states that he started having some discomfort today states that he drank some apple juice that subtle right. Patient states he started burning in his upper stomach. Patient states he became very nauseated and vomited. Patient states that has subsided. Patient denies any fever, chi lls, diarrhea constipation patient is concerned as he has peritoneal dialysis. He states 8 days ago that the skin tore around the site and he is started on antibiotics in which she's been taking Bactrim. Patient states that he has been warned about possible. Denies states she's never had any symptoms. Patient denies any night sweats denies any chest pain or shortness of breath. - Related Data Home Medications Medication Instructions Recorded Confirmed Aspirin EC [Ecotrin Low Dose] 81 mg PO DAILY 10/14/19 10/14/19 Cholecalciferol [Vitamin D3 (25 1,000 unit PO DAILY 10/14/19 10/14/19 Mcg = 1000 Iu)] Clopidogrel [Plavix] 75 mg PO DAILY 10/14/19 10/14/19 Evolocumab [Repatha Syringe] 140 mg SQ Q14D 10/14/19 10/14/19 Insulin Aspart (For Pump) [NovoLOG 0.01 unit SQ-PUMP CONTINUOUS 10/14/19 10/14/19 (For Pump)] Nitroglycerin Sl Tabs [Nitrostat] 0.4 mg SUBLINGUAL Q5M PRN 10/14/19 10/14/19 Zinc 50 mg PO DAILY 10/14/19 10/14/19 carvediloL [Carvedilol] 12.5 mg PO BID 10/14/19 10/14/19 diazePAM [Valium] 5 mg PO HS PRN 10/14/19 10/14/19 Previous Rx's Medication Instructions Recorded Pantoprazole Sodium [Protonix] 40 mg PO DAILY #10 tablet. 10/15/19 Allergies Allergy/AdvReac Type Severity Reaction Status Date / Time fish oil Allergy Chest Pain Verified 12/23/19 15:56 promethazine [From Phenergan] Allergy Hallucinati Verified 12/23/19 15:56 ons Review of Systems ROS Statement: Those systems with pertinent positive or pertinent negative responses have been documented in the HPI. ROS Other: All systems not noted in ROS Statement are negative. Past Medical History Past Medical History: Diabetes Mellitus, Hypertension Additional Past Medical History / Comment(s): CHF. peritoneal port in abdomen. stage 4 kidney failure. History of Any Multi-Drug Resistant Organisms: None Reported Past Surgical History: Coronary Bypass/CABG, Heart Catheterization With Stent Additional Past Surgical History / Comment(s): Port in abdomen. Defibrillator. Hernia Repair - inguinal Past Anesthesia/Blood Transfusion Reactions: No Reported Reaction Date of Last Stent Placement:: 2010 Past Psychological History: No Psychological Hx Reported Past Alcohol Use History: None Reported Past Drug Use History: None Reported General Exam Limitations: no limitations General appearance: alert, in no apparent distress Head exam: Present: atraumatic, normocephalic, normal inspection Eye exam: Present: normal appearance, PERRL, EOMI. Absent: scleral icterus, conjunctival injection, periorbital swelling Neck exam: Present: normal inspection, full ROM. Absent: tenderness, meningismus, lymphadenopathy Respiratory exam: Present: normal lung sounds bilaterally. Absent: respiratory distress, wheezes, rales, rhonchi, stridor Cardiovascular Exam: Present: regular rate, normal rhythm, normal heart sounds. Absent: systolic murmur, diastolic murmur, rubs, gallop, clicks GI/Abdominal exam: Present: soft, tenderness (Mild epigastric tenderness), normal bowel sounds, other (There is mild redness around the peritoneal catheter, no significant tenderness around the site or of the mid to lower abdomen). Absent: distended, guarding, rebound, rigid Back exam: Absent: CVA tenderness (R), CVA tenderness (L) Neurological exam: Present: alert, oriented X3 Skin exam: Present: warm, dry, intact, normal color. Absent: rash Course Vital Signs 12/23/19 12/23/19 15:53 17:13 Temperature 98.6 F Pulse Rate 75 86 Respiratory 16 18 Rate Blood Pressure 131/72 138/75 O2 Sat by Pulse 99 100 Oximetry Medical Decision Making - Medical Decision Making 54-year-old presented for epigastric pain. Patient had no relief of symptoms a fter GI cocktail. Patient found to have a lipase of 14,000. Patient be admitted for acute pancreatitis. Patient admitted for IV fluids, further evaluation by GI. - Lab Data Result diagrams: 12/23/19 16:12 12/23/19 16:12 Lab Results 12/23/19 12/23/19 12/23/19 Range/Units 16:12 16:12 16:12 WBC 10.1 (3.8-10.6) k/uL RBC 4.06 L (4.30-5.90) m/uL Hgb 12.4 L (13.0-17.5) gm/dL Hct 38.9 L (39.0-53.0) % MCV 95.7 (80.0-100.0) fL MCH 30.6 (25.0-35.0) pg MCHC 32.0 (31.0-37.0) g/dL RDW 13.6 (11.5-15.5) % Plt Count 180 (150-450) k/uL Neutrophils % 82 % Lymphocytes % 9 % Monocytes % 6 % Eosinophils % 2 % Basophils % 0 % Neutrophils # 8.3 H (1.3-7.7) k/uL Lymphocytes # 0.9 L (1.0-4.8) k/uL Monocytes # 0.7 (0-1.0) k/uL Eosinophils # 0.2 (0-0.7) k/uL Basophils # 0.0 (0-0.2) k/uL Sodium 137 (137-145) mmol/L Potassium 5.1 (3.5-5.1) mmol/L Chloride 105 (98-107) mmol/L Carbon Dioxide 24 (22-30) mmol/L Anion Gap 8 mmol/L BUN 41 H (9-20) mg/dL Creatinine 4.83 H (0.66-1.25) mg/dL Est GFR (CKD-EPI)AfAm 15 (>60 ml/min/1.73 sqM) Est GFR (CKD-EPI)NonAf 13 (>60 ml/min/1.73 sqM) Glucose 86 (74-99) mg/dL Plasma Lactic Acid Antoni 0.9 (0.7-2.0) mmol/L Calcium 8.1 L (8.4-10.2) mg/dL Total Bilirubin 0.6 (0.2-1.3) mg/dL AST 73 H (17-59) U/L ALT 40 (4-49) U/L Alkaline Phosphatase 107 (38-126) U/L Total Protein 6.1 L (6.3-8.2) g/dL Albumin 3.8 (3.5-5.0) g/dL Amylase 462 H* (30-110) U/L Lipase 86666 H (23-300) U/L Urine Color Urine Appearance (Clear) Urine pH (5.0-8.0) Ur Specific [place] (1.001-1.035) Urine Protein (Negative) Urine Glucose (UA) (Negative) Urine Ketones (Negative) Urine Blood (Negative) Urine Nitrite (Negative) Urine Bilirubin (Negative) Urine Urobilinogen (<2.0) mg/dL Ur Leukocyte Esterase (Negative) Urine RBC (0-5) /hpf Urine WBC (0-5) /hpf Ur Squamous Epith Cells (0-4) /hpf Urine Mucus (None) /hpf 12/23/19 Range/Units 16:59 WBC (3.8-10.6) k/uL RBC (4.30-5.90) m/uL Hgb (13.0-17.5) gm/dL Hct (39.0-53.0) % MCV (80.0-100.0) fL MCH (25.0-35.0) pg MCHC (31.0-37.0) g/dL RDW (11.5-15.5) % Plt Count (150-450) k/uL Neutrophils % % Lymphocytes % % Monocytes % % Eosinophils % % Basophils % % Neutrophils # (1.3-7.7) k/uL Lymphocytes # (1.0-4.8) k/uL Monocytes # (0-1.0) k/uL Eosinophils # (0-0.7) k/uL Basophils # (0-0.2) k/uL Sodium (137-145) mmol/L Potassium (3.5-5.1) mmol/L Chloride (98-107) mmol/L Carbon Dioxide (22-30) mmol/L Anion Gap mmol/L BUN (9-20) mg/dL Creatinine (0.66-1.25) mg/dL Est GFR (CKD-EPI)AfAm (>60 ml/min/1.73 sqM) Est GFR (CKD-EPI)NonAf (>60 ml/min/1.73 sqM) Glucose (74-99) mg/dL Plasma Lactic Acid Antoni (0.7-2.0) mmol/L Calcium (8.4-10.2) mg/dL Total Bilirubin (0.2-1.3) mg/dL AST (17-59) U/L ALT (4-49) U/L Alkaline Phosphatase (38-126) U/L Total Protein (6.3-8.2) g/dL Albumin (3.5-5.0) g/dL Amylase (30-110) U/L Lipase (23-300) U/L Urine Color Light Yellow Urine Appearance Clear (Clear) Urine pH 7.5 (5.0-8.0) Ur Specific [place] 1.008 (1.001-1.035) Urine Protein 1+ H (Negative) Urine Glucose (UA) Negative (Negative) Urine Ketones Negative (Negative) Urine Blood Trace H (Negative) Urine Nitrite Negative (Negative) Urine Bilirubin Negative (Negative) Urine Urobilinogen <2.0 (<2.0) mg/dL Ur Leukocyte Esterase Negative (Negative) Urine RBC <1 (0-5) /hpf Urine WBC 2 (0-5) /hpf Ur Squamous Epith Cells <1 (0-4) /hpf Urine Mucus Occasional H (None) /hpf Disposition Clinical Impression: Acute pancreatitis Disposition: ADMITTED IP TO THIS [facility] Condition: Fair Referrals: Ellen Mccartney DO [Primary Care Provider] - 1-2 days
[2019-12-23 16:23] LABS: Basophils % (A) 0 %; Eosinophils # (A) 0.2 k/uL (0-0.7); Eosinophils % (A) 2 %; HCT 38.9 % (39.0-53.0); HGB 12.4 gm/dL (13.0-17.5); Lymphocytes # (A) 0.9 k/uL (1.0-4.8); Lymphocytes % (A) 9 %; MCH 30.6 pg (25.0-35.0); MCV 95.7 fL (80.0-100.0); Mean Platelet Volume 8.1; Monocytes # (A) 0.7 k/uL (0-1.0); Monocytes % (A) 6 %; Neutrophils # (A) 8.3 k/uL (1.3-7.7); Neutrophils % (A) 82 %; Platelet Count 180 k/uL (150-450); RBC 4.06 m/uL (4.30-5.90); RDW 13.6 % (11.5-15.5); WBC 10.1 k/uL (3.8-10.6)
[2019-12-23 16:31] LABS: Albumin 3.8 g/dL (3.5-5.0); Calcium 8.1 mg/dL (8.4-10.2); Potassium 5.1 mmol/L (3.5-5.1); Total Bilirubin 0.6 mg/dL (0.2-1.3); Total Protein 6.1 g/dL (6.3-8.2)
[2019-12-23] MEDS ORDERED: HYDROmorphone 0.5 MG/0.5 ML SYRINGE IVP STA (17:06)
[2019-12-23 17:32] LABS: Appearance,Urine Clear (Clear); Bilirubin,Urine Negative (Negative); Blood,Urine Trace (Negative); Color,Urine Light Yellow; Glucose,Urine (UA) Negative (Negative); Ketones,Urine Negative (Negative); Leukocyte Esterase,Urine Negative (Negative); Mucus,Urine Occasional /hpf; Nitrite,Urine Negative (Negative); PH, Urine 7.5 (5.0-8.0); Protein,Urine 1+ (Negative); RBC,Urine <1 /hpf (0-5); Specific Gravity,Urine 1.008 (1.001-1.035); Squamous Epithelial Cell,Urine <1 /hpf (0-4); Urobilinogen,Urine <2.0 mg/dL (<2.0); WBC,Urine 2 /hpf (0-5)
[2019-12-23] MEDS ORDERED: SODIUM CHLORIDE 0.9% 1,000 ML IV ONE (17:55)
[2019-12-23] MEDS ORDERED: NALOXONE 0.4 MG/ML 1 ML VIAL IV PRN (17:57)
[2019-12-23] MEDS ORDERED: HYDROmorphone 1 MG/ML 1 ML SYRINGE IVP PRN (17:57)
[2019-12-23] MEDS ORDERED: HYDROmorphone 0.5 MG/0.5 ML SYRINGE IVP PRN (17:57)
[2019-12-23] MEDS ORDERED: LORazepam 2 MG/ML INJ IV PRN (17:57)
--- NOTE | 2019-12-23 19:07 | CT ---
EXAMINATION TYPE: CT abdomen pelvis wo con DATE OF EXAM: 12/23/2019 COMPARISON: None HISTORY: Epigastric abdominal pain. CT DLP: 553.4 mGycm Automated exposure control for dose reduction was used. Images obtained from the diaphragm to the floor the pelvis with no contrast. Lung bases are clear of consolidation. There is no pleural effusion. Heart is enlarged. Liver shows n o focal defect. Gallbladder is intact. There is 5 mm calcified gallstone. Spleen is large and measure s 13 cm. Stomach is intact. There is no evidence of pancreatic mass. There appears to be diffuse swelling of the pancreas. Common bile duct measures 12 mm. There is also apparent dilation of the distal pancreatic duct that measure s 12 mm. There is no adrenal mass. There is bilateral renal cortical atrophy. There is 15 mm rounded cortical density posterior left kidney which is indeterminate. There is no retroperitoneal adenopathy. Ureters are not dilated. There is percutaneous peritoneal catheter in the right lower quadrant. Bladder dist ends smoothly. There is no inguinal hernia. There is no free fluid in the pelvis. There is no evidenc e of a pelvic mass. There is no mesenteric edema. There is no ascites or free air. There is no sign o f a bowel obstruction. Appendix is not seen. There is no sign of thickened appendix. Lumbar vertebra have normal alignment. There is no compression fracture. Bony pelvis is intact. IMPRESSION: There appears to be diffuse swelling of the pancreas consistent with pancreatitis. Dilated distal mills creatic duct. No definite pancreatic mass seen. Single calcified gallstone. No dilation of the intrah epatic bile ducts. Mild splenomegaly. Renal atrophy.
[2019-12-23] MEDS: SODIUM CHLORIDE 0.9% 1,000 ML IV SCH (20:02)
[2019-12-23] MEDS ORDERED: RANOLAZINE 500 MG TAB.ER.12H PO SCH (21:00)
[2019-12-23] MEDS ORDERED: carvediloL 12.5 MG TAB PO SCH (21:00)
[2019-12-23] MEDS: lisinopriL 10 MG TAB PO SCH (22:27)
[2019-12-23] MEDS: GENTAMICIN 0.1% CREAM 15 GM TUBE TOPICAL SCH (22:27)
[2019-12-24] MEDS ORDERED: DIALYSIS (PERIT 1.5%) 1,500 ML 22.5 G/1,500 ML BAG INTRAPERIT SCH
[2019-12-24] MEDS ORDERED: NITROGLYCERIN SL TABS 0.4 MG TAB SUBLINGUAL PRN (00:24)
[2019-12-24] MEDS ORDERED: METOCLOPRAMIDE 5 MG/ML 2 ML VIAL IVP PRN (00:25)
[2019-12-24] MEDS: DIALYSIS DEX INTRAPERIT SCH ×5 (00:26→23:37)
[2019-12-24] MEDS: ONDANSETRON 4 MG/2 ML VIAL IVP PRN ×3 (00:46→17:46)
[2019-12-24] MEDS: SODIUM CHLORIDE 0.9% 1,000 ML IV SCH ×3 (00:48→17:56)
[2019-12-24] MEDS: Insulin Aspart (For Pump) 100 UNIT/ML VIAL SQ-PUMP SCH (00:50)
--- NOTE | 2019-12-24 04:32 | HP ---
HISTORY AND PHYSICAL DATE OF SERVICE: 12/23/2019 CHIEF COMPLAINT: Abdominal pain. HISTORY OF PRESENT ILLNESS: This 54-year-old gentleman with a past medical history of multiple medical problems including history of diabetes, hypertension, CHF, history of peritoneal dialysis, CAD, CABG stent being followed by Ellen Mccartney in the outpatient setting. Also getting hemodialysis from the [facility] elsewhere. The patient is started on peritoneal dialysis for the last several months and the patient accidentally the peritoneal dialysis catheter and apparently had some infection. Patient was given outpatient antibiotics, but today the patient has significant pain in the anterior abdominal wall which is burning type of pain. Patient came to [facility]. Patient has evidence of acute pancreatitis with elevated amylase, lipase. Lipase elevated 14,480. CT scan of the abdomen showed diffuse swelling of the pancreas consistent with pancreatitis and dilated distal pancreatic duct also noted. There is no history of fever, rigors. No history of headache, loss of consciousness, seizures at this time. PAST MEDICAL HISTORY: History of diabetes mellitus, hypertension, CHF, peritoneal dialysis and recent infection. MEDICATIONS: The home medications are: 1. Coreg. 2. Nitrostat. 3. Gentamicin cream. 4. Alirocumab insulin pump. 5. Vasotec. 6. Plavix. 7. Aspirin. ALLERGIES: FISH OIL and PHENERGAN. FAMILY HISTORY: No history of heart disease or strokes in the family. SOCIAL HISTORY: No history of smoking. No history of alcohol intake. REVIEW OF SYSTEMS: ENT: No diminished hearing or diminished vision. CARDIOVASCULAR SYSTEM: As mentioned earlier. RESPIRATORY SYSTEM: As mentioned earlier. GI: As mentioned earlier. : No dysuria. NERVOUS SYSTEM: No numbness or weakness. ALLERGY/IMMUNOLOGY: No history of asthma. MUSCULOSKELETAL: As mentioned earlier. HEMATOLOGY/ONCOLOGY: No history of anemia. ENDOCRINE: As mentioned earlier. CONSTITUTIONAL: As mentioned earlier. DERMATOLOGY: Negative. RHEUMATOLOGY: Negative. PSYCHIATRY: As mentioned earlier. PHYSICAL EXAMINATION: The patient is alert and oriented x3. Pulse is 74, blood pressure 126/74, respiration 18, temperature 98.8, pulse ox 95% on room air. HEENT: Conjunctivae normal. Oral mucosa moist. NECK: No jugular venous distention. No carotid bruit. No lymph node enlargement. CARDIOVASCULAR: S1, S2 muffled. RESPIRATORY: Breath sound diminished at the bases. No rhonchi, no crackles. ABDOMEN: Soft, obese. Peritoneal catheter in situ. Insulin pump also in situ. The peritoneal dialysis catheter is slightly infected, some minimal discharge. No tenderness. No guarding. No rigidity. No mass palpable. Minimal diffuse discomfort in the upper epigastrium present. No ascites. Bowel sounds present. No mass palpable. LEGS: No edema, no swelling. NERVOUS SYSTEM: Higher function as mentioned earlier. Moves all 4 limbs. No focal motor or sensory deficits. LYMPHATICS: No lymphadenopathy of the neck, axillae or groin. SKIN: No ulcer, rash or bleeding. JOINTS: No active deforming arthropathy. LABS: WBC 10.1, hemoglobin 12.4, creatinine 4.83. Amylase 462, lipase is 14,480. ASSESSMENT: 1. Acute severe pancreatitis of undetermined etiology. 2. Chronic renal failure end-stage renal disease on peritoneal dialysis. 3. Possible infected peritoneal dialysis catheter site. 4. Anemia, normocytic secondary to renal failure. 5. Elevated AST. 6. History of diabetes mellitus type 2. 7. Hypertension. 8. History of congestive heart failure. 9. History of AICD. 10.History of coronary artery disease, coronary artery bypass grafting, stent. 11.History of inguinal hernia repair. RECOMMENDATIONS AND DISCUSSION: This 54-year-old gentleman who presented with multiple complex medical issues, at this time I recommend to continue the current medications, continue symptomatic treatment. Patient is currently started on clear liquids. Recommend Infectious Disease and as well as Gastroenterology and Nephrology consultations. Empiric antibiotics. Obtain cultures. Resume the home medications. The prognosis guarded because of multiple complex medical issues. Further recommendations to follow. Copy of dictation forwarded to Dr. Ellen Mccartney who is the primary physician. Monitor blood sugars closely. We will cut down the IV fluids because of the history of chronic renal failure. Basic labs also will be obtained and will be repeated. We will obtain lipid panel as well and ultrasound of the abdomen also for gallbladder and looking for gallstones. MMODL / IJN: [id number] / FARTUN
[2019-12-24] MEDS ORDERED: LEVOTHYROXINE 25 MCG TAB PO SCH (06:30)
[2019-12-24] MEDS: lisinopriL 10 MG TAB PO SCH ×2 (07:40→20:33)
[2019-12-24] MEDS: ASPIRIN 81 MG PO SCH (07:40)
[2019-12-24] MEDS: CLOPIDOGREL 75 MG TAB PO SCH (07:40)
[2019-12-24] MEDS: HEPARIN SODIUM,PORCINE 5,000 UNIT/ML 1 ML VIAL SQ SCH ×2 (07:40→20:33)
[2019-12-24] MEDS: carvediloL 6.25 MG TAB PO SCH ×2 (07:40→17:47)
[2019-12-24] MEDS: GENTAMICIN 0.1% CREAM 15 GM TUBE TOPICAL SCH ×2 (07:43→20:33)
[2019-12-24] MEDS ORDERED: ZINC SULFATE 220 MG CAP PO SCH (09:00)
[2019-12-24] MEDS ORDERED: CHOLECALCIFEROL 1,000 UNIT TAB PO SCH (09:00)
[2019-12-24] MEDS ORDERED: PANTOPRAZOLE 40 MG/10 ML VIAL IV SCH (09:00)
[2019-12-24 09:05] LABS: Albumin 3.1 g/dL (3.5-5.0); Calcium 7.5 mg/dL (8.4-10.2); Total Bilirubin 0.9 mg/dL (0.2-1.3); Total Protein 5.2 g/dL (6.3-8.2)
[2019-12-24 09:10] LABS: Potassium 6.1 mmol/L (3.5-5.1)
[2019-12-24] MEDS ORDERED: INSULIN REGULAR 100 UNIT/ML VIAL IV ONE (09:18)
[2019-12-24] MEDS ORDERED: DEXTROSE 50% SYRINGE 50 ML IVP STA (09:18)
--- NOTE | 2019-12-24 10:17 | US ---
EXAMINATION TYPE: US gallbladder DATE OF EXAM: 12/24/2019 COMPARISON: NONE CLINICAL HISTORY: gall stones. Nausea and vomiting. EXAM MEASUREMENTS: Liver Length: 18 cm Gallbladder Wall: .4 cm CBD: .9 cm Right Kidney: 7.9 x 3.0 x 4.4 cm Pancreas: Obscured by bowel gas Liver: Increased attenuation hepatomegaly. Gallbladder: Stone seen. Evidence for sonographic Ashton's sign: No CBD: Dilated Right Kidney: Atrophic Small amount of ascites is adjacent to the liver. IMPRESSION: 1. Cholelithiasis. Gallbladder wall thickening is present. Correlate for acute cholecystitis. 2. Dilated common bile duct. 3. Mild fatty infiltration within the enlarged liver. 4. Small amount of ascites adjacent to the liver.
[2019-12-24] MEDS ORDERED: FUROSEMIDE 10 MG/ML 10 ML VIAL IV STA (12:20)
--- NOTE | 2019-12-24 17:46 | PN ---
PROGRESS NOTE DATE OF SERVICE: 12/24/2019 This is a 54-year-old gentleman with acute severe pancreatitis, undetermined etiology, also had chronic renal failure. Patient also peritoneal dialysis catheter and infection were suspected. Patient started on broad spectrum IV antibiotics and ultrasound of the abdomen was noted which showed cholelithiasis and possibly old cholecystitis also. There is no history of fever, rigors. Multiple consultants are following the patient closely. PAST MEDICAL HISTORY: Reviewed. REVIEW OF SYSTEMS: CARDIOVASCULAR SYSTEM: No angina. RESPIRATION: As mentioned earlier. GI: As mentioned earlier. : No dysuria. NERVOUS SYSTEM: No numbness or weakness. CURRENT MEDICATIONS: Reviewed and include: 1. [place] 5 mg q.6 p.r.n. 2. Aspirin 81 mg. 3. Coreg 6.2. 4. Plavix 75 mg. 5. Heparin. 6. NovoLog. 7. Zestril. 8. Zofran. 9. Protonix. PHYSICAL EXAM: Patient alert and oriented x3. Pulse 70, blood pressure 156/55, respirations 16, temperature 98.9, pulse ox 94% on room air. HEENT: Conjunctivae normal. NECK: No jugular venous distension. CARDIOVASCULAR: S1, S2, muffled. RESPIRATION: Breath sound diminished at the bases, bilateral scattered rhonchi, no crackles. ABDOMEN: Soft, nontender, no mass palpable. LEGS: No edema, no swelling. NERVOUS SYSTEM: No focal deficits. LABS: WBC is 10.1, hemoglobin is 12.4, sodium 133, potassium 6.5, creatinine is 4.74. AST is 206 and ALT is 218 and amylase 215 and lipase 2671. ASSESSMENT: 1. Acute severe pancreatitis, undetermined etiology. 2. Possible acute cholelithiasis and cholecystitis. 3. Possible infected peritoneal dialysis catheter site. 4. Chronic renal failure and end-stage renal disease on peritoneal dialysis. 5. Anemia, normocytic anemia secondary to renal failure. 6. Elevated AST. 7. History of diabetes type 2. 8. Hypertension. 9. History of CHF. 10.History AICD. 11.History of CAD, CABG stent. 12.History of hernia repair. RECOMMENDATION: Recommend to continue current medications, management and symptomatic treatment. Otherwise at this time, LFTs are reviewed. The patient had elevated AST, ALT, alkaline phosphatase. The patient might need an ERCP. Otherwise, will continue to monitor. Surgical evaluation has been sought. Continue with empiric antibiotics. Infectious disease evaluation pending. Cultures also pending. Further recommendation to follow. MMODL / IJN: [id number] /
[2019-12-24] MEDS: HYDROcodone/APAP 5-325MG 1 EACH TAB PO PRN (17:47)
[2019-12-24] MEDS: PANTOPRAZOLE 40 MG/10 ML VIAL IV SCH (20:33)
--- NOTE | 2019-12-24 21:07 | CONS ---
CONSULTATION REASON FOR CONSULT: End-stage renal disease. HISTORY OF PRESENT ILLNESS: The patient is a 54-year-old male, on peritoneal dialysis for about a year now. The patient attends the [facility]. The patient usually uses a cycler at home, has only been using 1500 mL of dialysate. He was admitted to the hospital with complaints of abdominal pain and was found to have pancreatitis. His lipase was 14,480 and is now down to 2671. The patient's potassium was elevated at 6.1. Today it is now down to 5.7. Patient has urine output. He was found to have gallstones on his abdominal imaging. He denies significant use of alcohol prior to admission. PAST MEDICAL HISTORY: End-stage renal disease, diabetes, hypertension, anemia of chronic disease, CKD mineral bone disorder, history of CHF, ejection fraction not known. PAST SURGICAL HISTORY: Coronary artery bypass surgery, cardiac catheterization, coronary stent placement, PD catheter placement, hernia repair, defibrillator. SOCIAL HISTORY: Negative for smoking, drug abuse or alcohol abuse. MEDICATIONS AT HOME: Medications at home prior to admission included aspirin, vitamin D3, Plavix, zinc, Coreg, Valium, insulin, Protonix. ALLERGIES: ALLERGIES include FISH OIL, PHENERGAN, which causes hallucinations. REVIEW OF SYSTEMS: As per HPI. Other systems negative. PHYSICAL EXAMINATION: Patient is comfortable, awake, alert, oriented x3, not in any acute distress. Blood pressure is 111/65, heart rate 72 per minute. He is afebrile. EXAMINATION OF THE HEART: S1 and S2. EXAMINATION OF LUNGS: Bilateral breath sounds are heard. ABDOMEN: Soft, non-tender. Examination of lower extremities shows trace edema bilaterally. KILN CHARGER exam is grossly intact. LABS: Labs show sodium 133, potassium 6.1, chloride 103, BUN 44, creatinine 4.74, hemoglobin 12.4 g/dL. Lipase was 2671, amylase 215. ASSESSMENT: 1. End-stage renal disease, on peritoneal dialysis. Continue current PD exchanges. 2. Hyperkalemia. Expect improvement with ongoing dialysis. I will also give a dose of IV Lasix. Blood sugar was elevated at 231, which will also contribute to the hyperkalemia. 3. Acute pancreatitis, gallstone-related. 4. Chronic kidney disease mineral bone disorder, not on any phosphate binders. 5. Hypertension, currently controlled. PLAN: Check phosphorus levels. Continue current dialysis. Decrease IV fluids if the patient is able to tolerate p.o. IV Lasix x1 to help with the hyperkalemia. Maintain patient on low-potassium diet. Thank you for this consultation. Will continue to follow the patient with you during his hospitalization. MICHELLE / BETTINA: [id number] /
[2019-12-24] MEDS ORDERED: ALIROCUMAB 150 MG SQ SCH (22:00)
--- NOTE | 2019-12-24 22:44 | P.CONS ---
History of Present Illness - Reason for Consult Consult date: 12/24/19 PD catheter site cellulitis and cholecystitis Requesting physician: Any Abdalla - Chief Complaint Abdominal pain x few days - History of Present Illness Patient is a 54-year-old male with a past medical history significant for end-stage renal disease for the patient is currently on peritoneal dialysis for more than a year now patient apparently recently did have some drainage from the PD catheter site with concern for possible infection of the catheter and the patient was treated with some antibiotics however the patient not sure about the name of those antibiotic patient presenting to [facility] ER she complains of abdominal pain patient abdominal has been mostly generalized and in the upper abdominal area is claiming to be sharp almost 10 out of 10 in severity with some associated nausea but no vomiting denies high-grade fever patient was evaluated by the physician on arrival. The patient was noticed to have significantly elevated lipase CT abdomen and pelvis was suggestive of pancreatitis patient also have an ultrasound of the gallbladder had suspicion for cholecystitis patient did have cultures obtained from his peritoneal dialysis catheter site has been started on some local gentamicin. Infectious disease was consulted for further management of antibiotic therapy, patient did have a normal white count and no fever during this hospital admission Review of Systems Positive point has been mentioned in the HPI rest of the systems are negative Past Medical History Past Medical History: Diabetes Mellitus, Hypertension Additional Past Medical History / Comment(s): CHF. peritoneal port in abdomen. stage 4 kidney failure. History of Any Multi-Drug Resistant Organisms: None Reported Past Surgical History: Coronary Bypass/CABG, Heart Catheterization With Stent Additional Past Surgical History / Comment(s): Port in abdomen. Defibrillator. Hernia Repair - inguinal Past Anesthesia/Blood Transfusion Reactions: No Reported Reaction Date of Last Stent Placement:: 2010 Past Psychological History: No Psychological Hx Reported Smoking Status: Never smoker Past Alcohol Use History: None Reported Past Drug Use History: None Reported Medications and Allergies Home Medications Medication Instructions Recorded Confirmed Type Aspirin EC [Ecotrin Low Dose] 81 mg PO DAILY 10/14/19 12/23/19 History Clopidogrel [Plavix] 75 mg PO DAILY 10/14/19 12/23/19 History Insulin Aspart (For Pump) [NovoLOG 0.01 unit SQ-PUMP CONTINUOUS 10/14/19 12/23/19 History (For Pump)] Nitroglycerin Sl Tabs [Nitrostat] 0.4 mg SUBLINGUAL Q5M PRN 10/14/19 12/23/19 History carvediloL [Carvedilol] 6.25 mg PO BID 10/14/19 12/23/19 History Alirocumab [Praluent Pen] 150 mg SQ Q14D@1900 12/23/19 12/23/19 History Enalapril [Vasotec] 5 mg PO BID 12/23/19 12/23/19 History Gentamicin 0.1% Cream 1 applic TOPICAL BID 12/23/19 12/23/19 History Allergies Allergy/AdvReac Type Severity Reaction Status Date / Time fish oil Allergy Chest Pain Verified 12/23/19 19:45 promethazine [From Phenergan] Allergy Hallucinati Verified 12/23/19 19:45 ons Physical Exam Vitals: Vital Signs Temp Pulse Resp BP Pulse Ox 12/24/19 20:44 99.2 F 66 18 120/70 95 12/24/19 13:00 98.9 F 70 16 156/55 94 L 12/24/19 05:00 98.2 F 72 18 111/65 98 12/24/19 00:00 18 Intake and Output 12/24/19 12/24/19 12/24/19 06:59 14:59 22:59 Intake Total 1680 600 830 Output Total 20 Balance 1660 600 830 Intake: Intake, IV Titration 1200 600 240 Amount Sodium Chloride 0.9% 1, 1200 600 240 000 ml @ 60 mls/hr IV . [id number] [facility] Rx#:[id number] Oral 480 590 Output: Emesis 20 Other: # Voids 1 1 GENERAL DESCRIPTION: Middle-aged male lying in bed, no distress. No tachypnea or accessory muscle of respiration use. HEENT: Shows Pallor , no scleral icterus. Oral mucous membrane is dry. No pharyngeal erythema or thrush NECK: Trachea central, no thyromegaly. LUNGS: Unlabored breathing. Clear to auscultation anteriorly. No wheeze or crackle. HEART: S1, S2, regular rate and rhythm. No loud murmur ABDOMEN: Soft, mild epigastric area tenderness , there is prominence cath site currently with no significant swelling redness or induration EXTREMITIES: No edema of feet. SKIN: No rash, no masses palpable. NEUROLOGICAL: The patient is awake, alert, oriented x3, mood and affect normal. Results CBC & Chem 7: 12/23/19 16:12 12/24/19 14:26 Labs: Abnormal Lab Results - Last 24 Hours (Table) 12/24/19 12/24/19 Range/Units 08:39 14:26 Sodium 133 L (137-145) mmol/L Potassium 6.1 H* 5.7 H (3.5-5.1) mmol/L BUN 44 H (9-20) mg/dL Creatinine 4.74 H (0.66-1.25) mg/dL Glucose 231 H (74-99) mg/dL Calcium 7.5 L (8.4-10.2) mg/dL AST 206 H (17-59) U/L ALT 218 H (4-49) U/L Alkaline Phosphatase 150 H (38-126) U/L Total Protein 5.2 L (6.3-8.2) g/dL Albumin 3.1 L (3.5-5.0) g/dL HDL Cholesterol 37 L (40-60) mg/dL Amylase 215 H (30-110) U/L Lipase 2671 H (23-300) U/L Microbiology - Last 24 Hours (Table) 12/24/19 00:45 Gram Stain - Preliminary Abdomen Wound Culture - Preliminary 12/24/19 00:45 Anaerobic Culture - Preliminary Catheter Site Assessment and Plan Assessment: 1- patient presented to hospital with abdominal pain this patient has been manuel gnosed with pancreatitis without evidence of cholecystitis likely gallstone pancreatitis And will need to cover for enteric gram-negative both anaerobes and anaerobes 2- patient with some drainage from his abdominal discomfort inside with concern for possible cellulitis. No significant purulent drainage was noticed or any redness (1) Gallstone pancreatitis Current Visit: Yes Status: Acute Code(s): K85.10 - BILIARY ACUTE PANCREATITIS WITHOUT NECROSIS OR INFECTION SNOMED Code(s): 85803565 (2) Cholecystitis Current Visit: Yes Status: Acute Code(s): K81.9 - CHOLECYSTITIS, UNSPECIFIED SNOMED Code(s): 35410754 Plan: 1- we will obtain blood cultures as well as CRP and follow-up on the cultures obtained from his PD catheter site 2- we will empirically start the patient on Zosyn 3.375 mg every 12 hours 3- Gen. surgery has already been consulted await their recommendation We will follow on clinical condition and cultures to further adjust medication if needed Thank you for this consultation will follow this patient with you Time with Patient: Greater than 30
[2019-12-25] MEDS: PIPERACILLIN-TAZOBACTAM 3.375 GM in SODIUM CHLORIDE 0.9% 100 ML IVPB SCH ×3 (00:12→23:46)
[2019-12-25] MEDS: HYDROcodone/APAP 5-325MG 1 EACH TAB PO PRN ×2 (00:12→20:49)
[2019-12-25] MEDS: Insulin Aspart (For Pump) 100 UNIT/ML VIAL SQ-PUMP SCH (00:15)
[2019-12-25 01:02] LABS: Appearance,BF Clear; Color,BF Colorless; Nucleated Cells, Body Fluid 9 /uL; RBC, Body Fluid 24 /uL
[2019-12-25] MEDS: DIALYSIS DEX INTRAPERIT SCH ×4 (05:24→23:45)
[2019-12-25 06:33] LABS: Basophils % (A) 1 %; Eosinophils # (A) 0.1 k/uL (0-0.7); Eosinophils % (A) 3 %; HCT 36.1 % (39.0-53.0); HGB 11.4 gm/dL (13.0-17.5); Lymphocytes # (A) 0.9 k/uL (1.0-4.8); Lymphocytes % (A) 22 %; MCHC 31.7 g/dL (31.0-37.0); MCV 97.7 fL (80.0-100.0); Mean Platelet Volume 8.7; Monocytes # (A) 0.4 k/uL (0-1.0); Monocytes % (A) 10 %; Neutrophils # (A) 2.4 k/uL (1.3-7.7); Neutrophils % (A) 62 %; Platelet Count 151 k/uL (150-450); RBC 3.69 m/uL (4.30-5.90); RDW 13.4 % (11.5-15.5); WBC 3.8 k/uL (3.8-10.6)
[2019-12-25 06:40] LABS: Prothrombin Time 10.3 sec (9.0-12.0)
[2019-12-25 06:48] LABS: Calcium 7.9 mg/dL (8.4-10.2); Potassium 5.4 mmol/L (3.5-5.1); Total Bilirubin 0.6 mg/dL (0.2-1.3); Total Protein 5.2 g/dL (6.3-8.2)
--- NOTE | 2019-12-25 08:28 | XR ---
EXAMINATION TYPE: XR chest 1V portable DATE OF EXAM: 12/25/2019 CLINICAL HISTORY: Difficulty breathing and CHF progress study. Pancreatitis. TECHNIQUE: Single AP portable frontal view of the chest is obtained. COMPARISON: None FINDINGS: There is right-sided single lead pacemaker/ICD. There is bilateral mild cardiomegaly. Over lying sternal wires and mediastinal clips are present. Overlying horizontal oriented wires in the mid line of the upper thorax are noted. Chronic parenchymal changes bilaterally without suspicious focal airspace opacity, pleural effusion, or pneumothorax. Old healed fracture mid right clavicle noted. IMPRESSION: Chronic changes and mild cardiomegaly without acute pulmonary process.
[2019-12-25] MEDS: CLOPIDOGREL 75 MG TAB PO SCH (09:06)
[2019-12-25] MEDS: HEPARIN SODIUM,PORCINE 5,000 UNIT/ML 1 ML VIAL SQ SCH ×2 (09:06→20:49)
[2019-12-25] MEDS: ASPIRIN 81 MG PO SCH (09:06)
[2019-12-25] MEDS: carvediloL 6.25 MG TAB PO SCH ×2 (09:06→18:17)
[2019-12-25] MEDS: lisinopriL 10 MG TAB PO SCH ×2 (09:07→20:49)
[2019-12-25] MEDS: PANTOPRAZOLE 40 MG/10 ML VIAL IV SCH ×2 (09:07→20:49)
[2019-12-25] MEDS: GENTAMICIN 0.1% CREAM 15 GM TUBE TOPICAL SCH ×2 (09:09→19:44)
[2019-12-25 11:19] LABS: IgG Subclass 3 21.6 mg/dL (11.0-85.0)
[2019-12-25 11:44] LABS: IgG Subclass 4 1.1 mg/dL (3.0-175.0)
--- NOTE | 2019-12-25 13:01 | P.GSCN ---
<Alix Fraire - Last Filed: 12/25/19 12:41> History of Present Illness Consult date: 12/25/19 Reason for Consult: Gallstone pancreatitis History of present illness: CHIEF COMPLAINT: Abdominal pain HISTORY OF PRESENT ILLNESS: This is a 54-year-old male with a known history of diabetes, end-stage renal disease on peritoneal dialysis, congestive heart failure, AICD placement, coronary artery disease with previous CABG and cardiac stents. Patient presented to the hospital with complaints of right upper quadrant and epigastric abdominal pain that started about 2 days ago. Patient describes the abdominal pain as a burning sensation. He was having severe nausea. He thought it was initially related to not eating breakfast. He then proceeded to eat his lunch and initially had some improvement of his abdominal pain. But he did vomit a little while later. He presented to the emergency room for further evaluation and treatment. Had a computed tomography scan showing diffuse swelling of the pancreas consistent with pancreatitis. Dilated distal pancreatic duct. Single calcified stone. No dilation of the intra hepatic bile ducts. Gallbladder ultrasound showing cholelithiasis. Gallbladder wall thickening is present. Correlate for acute cholecystitis. And dilated common bile duct. Patient initially had elevated LFTs and amylase and lipase. They are all trending downwards. Patient's abdominal pain has improved. He tolerated pancakes for breakfast. PAST MEDICAL HISTORY: See list. PAST SURGICAL HISTORY: See list. MEDICATIONS: See list. ALLERGIES: See list. SOCIAL HISTORY: No illicit drug use. REVIEW OF SYSTEMS: CONSTITUTIONAL: Denies fever or chills. HEENT: Denies blurred vision, vision changes, or eye pain. Denies hemoptysis ENDOCRINE: Denies heat or cold intolerance. CARDIOVASCULAR: Denies chest pain or pressure. RESPIRATORY: No shortness of breath. GASTROINTESTINAL: Denies abdominal pain. Denies nausea or vomiting. NEURO: Denies history of seizures. PSYCH: No depression or suicidal ideation HEMATOLOGIC: Denies bleeding disorders. LYMPHATIC: The patient denies any lumps and bumps around the neck. GENITOURINARY: Denies any blood in urine or increased urinary frequency. MUSCULOSKELETAL: Denies myalgias. Denies joint swelling. Denies decreased range of motion beyond patients baseline. SKIN: Denies pruitis. Denies rash. PHYSICAL EXAM: VITAL SIGNS: Reviewed GENERAL: Well-developed in no acute distress. HEENT: No sclera icterus. Extraocular movements grossly intact. Moist buccal mucosa. Head is atraumatic, normocephalic. Hears conversational speech. No nasal drainage. NECK: Supple without lymphadenopathy. CHEST: Non-labored respirations and equal bilateral excursions. CARDIOVASCULAR: Regular rate with regular rhythm. Palpable 2+ radial pulses. ABDOMEN: Soft. Nondistended. Nontender MUSCULOSKELETAL: No clubbing or cyanosis. NEUROLOGIC: No focal or lateralizing signs. Cranial nerves II through XII g rossly intact. PSYCH: Appropriate affect. Alert and oriented to person, place and time. SKIN: Well perfused. Good skin turgor. LABORATORY DATA: AST 206 down to 138, ALT 218 down to 198, alk phos 150 down to 143, amylase 462 trending down to 100, lipase 14,480 trending down to 2671 then 1738 IMAGING: Computed tomography scan of the abdomen and pelvis without contrast reporting there appears to be diffuse swelling of the pancreas consistent with mills creatitis. Dilated distal pancreatic duct. No definite pancreatic mass seen. Single calcified gallstone. No dilation of the intrahepatic bile ducts. Gallbladder ultrasound showing cholelithiasis. Gallbladder wall thickening. Correlate for acute cholecystitis. Dilated common bile duct. ASSESSMENT: 1. Acute gallstone pancreatitis: Patient currently denies any pain. He is tolerating diet. LFTs and amylase and lipase are trending down 2. End-stage renal disease on peritoneal dialysis 3. Possible infected peritoneal dialysis catheter site. Followed by infectious disease. Antibiotics per infectious disease 4. History of coronary artery disease with previous CABG and cardiac stents 5. History of AICD placement PLAN: Avoid fatty foods Consult cardiology for cardiac clearance for possible future surgery Patient is surgically stable for discharge. No surgical intervention required during this hospitalization. Patient will have outpatient management for the gallstone pancreatitis. Will follow up with Dr. Pollack on January 01 Nurse practitioner note has been reviewed by physician. Signing provider agrees with the documented findings, assessment, and plan of care. Past Medical History Past Medical History: Diabetes Mellitus, Hypertension Additional Past Medical History / Comment(s): CHF. peritoneal port in abdomen. stage 4 kidney failure. History of Any Multi-Drug Resistant Organisms: None Reported Past Surgical History: Coronary Bypass/CABG, Heart Catheterization With Stent Additional Past Surgical History / Comment(s): Port in abdomen. Defibrillator. Hernia Repair - inguinal Past Anesthesia/Blood Transfusion Reactions: No Reported Reaction Date of Last Stent Placement:: 2010 Past Psychological History: No Psychological Hx Reported Smoking Status: Never smoker Past Alcohol Use History: None Reported Past Drug Use History: None Reported Medications and Allergies Home Medications Medication Instructions Recorded Confirmed Type Aspirin EC [Ecotrin Low Dose] 81 mg PO DAILY 10/14/19 12/23/19 History Clopidogrel [Plavix] 75 mg PO DAILY 10/14/19 12/23/19 History Insulin Aspart (For Pump) [NovoLOG 0.01 unit SQ-PUMP CONTINUOUS 10/14/19 08/08/08 History (For Pump)] Nitroglycerin Sl Tabs [Nitrostat] 0.4 mg SUBLINGUAL Q5M PRN 10/14/19 12/23/19 History carvediloL [Carvedilol] 6.25 mg PO BID 10/14/19 12/23/19 History Alirocumab [Praluent Pen] 150 mg SQ Q14D@1900 12/23/19 12/23/19 History Enalapril [Vasotec] 5 mg PO BID 12/23/19 12/23/19 History Gentamicin 0.1% Cream 1 applic TOPICAL BID 12/23/19 12/23/19 History Allergies Allergy/AdvReac Type Severity Reaction Status Date / Time fish oil Allergy Chest Pain Verified 12/23/19 19:45 promethazine [From Phenergan] Allergy Hallucinati Verified 12/23/19 19:45 ons Surgical - Exam Vital Signs Temp Pulse Resp BP Pulse Ox 98.6 F 75 16 131/72 99 12/23/19 15:53 12/23/19 15:53 12/23/19 15:53 12/23/19 15:53 12/23/19 15:53 Results - Labs 12/25/19 06:10 12/25/19 06:10 Abnormal Lab Results - Last 24 Hours (Table) 12/24/19 12/24/19 12/24/19 Range/Units 08:39 14:26 22:39 RBC (4.30-5.90) m/uL Hgb (13.0-17.5) gm/dL Hct (39.0-53.0) % Lymphocytes # (1.0-4.8) k/uL Sodium (137-145) mmol/L Potassium 5.7 H (3.5-5.1) mmol/L BUN (9-20) mg/dL Creatinine (0.66-1.25) mg/dL Glucose (74-99) mg/dL Calcium (8.4-10.2) mg/dL AST (17-59) U/L ALT (4-49) U/L Alkaline Phosphatase (38-126) U/L C-Reactive Protein 75.7 H (<10.0) mg/L Total Protein (6.3-8.2) g/dL Albumin (3.5-5.0) g/dL Lipase (23-300) U/L IgG4 1.1 L (3.0-175.0) mg/dL 12/25/19 12/25/19 Range/Units 06:10 06:10 RBC 3.69 L (4.30-5.90) m/uL Hgb 11.4 L (13.0-17.5) gm/dL Hct 36.1 L (39.0-53.0) % Lymphocytes # 0.9 L (1.0-4.8) k/uL Sodium 135 L (137-145) mmol/L Potassium 5.4 H (3.5-5.1) mmol/L BUN 44 H (9-20) mg/dL Creatinine 4.86 H (0.66-1.25) mg/dL Glucose 103 H (74-99) mg/dL Calcium 7.9 L (8.4-10.2) mg/dL AST 138 H (17-59) U/L ALT 198 H (4-49) U/L Alkaline Phosphatase 143 H (38-126) U/L C-Reactive Protein (<10.0) mg/L Total Protein 5.2 L (6.3-8.2) g/dL Albumin 3.0 L (3.5-5.0) g/dL Lipase 1738 H (23-300) U/L IgG4 (3.0-175.0) mg/dL Microbiology - Last 24 Hours (Table) 12/25/19 00:03 Body Fluid Culture - Preliminary Dialysate 12/24/19 00:45 Gram Stain - Preliminary Abdomen Wound Culture - Preliminary 12/24/19 00:45 Anaerobic Culture - Preliminary Catheter Site Diabetes panel 12/24/19 12/25/19 Range/Units 14:26 06:10 Sodium 135 L (137-145) mmol/L Potassium 5.7 H 5.4 H (3.5-5.1) mmol/L Chloride 103 (98-107) mmol/L Carbon Dioxide 28 (22-30) mmol/L BUN 44 H (9-20) mg/dL Creatinine 4.86 H (0.66-1.25) mg/dL Glucose 103 H (74-99) mg/dL Calcium 7.9 L (8.4-10.2) mg/dL AST 138 H (17-59) U/L ALT 198 H (4-49) U/L Alkaline Phosphatase 143 H (38-126) U/L Total Protein 5.2 L (6.3-8.2) g/dL Albumin 3.0 L (3.5-5.0) g/dL Calcium panel 12/25/19 Range/Units 06:10 Calcium 7.9 L (8.4-10.2) mg/dL Albumin 3.0 L (3.5-5.0) g/dL Pituitary panel 12/24/19 12/25/19 Range/Units 14:26 06:10 Sodium 135 L (137-145) mmol/L Potassium 5.7 H 5.4 H (3.5-5.1) mmol/L Chloride 103 (98-107) mmol/L Carbon Dioxide 28 (22-30) mmol/L BUN 44 H (9-20) mg/dL Creatinine 4.86 H (0.66-1.25) mg/dL Glucose 103 H (74-99) mg/dL Calcium 7.9 L (8.4-10.2) mg/dL Adrenal panel 12/24/19 12/25/19 Range/Units 14:26 06:10 Sodium 135 L (137-145) mmol/L Potassium 5.7 H 5.4 H (3.5-5.1) mmol/L Chloride 103 (98-107) mmol/L Carbon Dioxide 28 (22-30) mmol/L BUN 44 H (9-20) mg/dL Creatinine 4.86 H (0.66-1.25) mg/dL Glucose 103 H (74-99) mg/dL Calcium 7.9 L (8.4-10.2) mg/dL Total Bilirubin 0.6 (0.2-1.3) mg/dL AST 138 H (17-59) U/L ALT 198 H (4-49) U/L Alkaline Phosphatase 143 H (38-126) U/L Total Protein 5.2 L (6.3-8.2) g/dL Albumin 3.0 L (3.5-5.0) g/dL <Shreya Lua N - Last Filed: 12/25/19 23:48> History of Present Illness History of present illness: Patient seen and evaluated with above. Please see additional comments. HISTORY OF PRESENT ILLNESS: The patient is a 54-year-old male who presents with multiple medical comorbidities including end-stage renal disease and significant cardiomyopathy with previous coronary artery bypass grafting presenting with elevated lipase over 14,000 on admission. Denies any family history of gallbladder disease. Additional diagnostic studies demonstrated gallstones. Since admission, reports abdominal pain completely resolved. He was tolerating a regular diet. General surgery was consulted for gallstone-induced pancreatitis. PAST MEDICAL HISTORY: See list and reviewed PAST SURGICAL HISTORY: See list and reviewed MEDICATIONS: See list and reviewed ALLERGIES: See list and reviewed SOCIAL HISTORY: See list and reviewed FAMILY HISTORY: See list and reviewed REVIEW OF ORGAN SYSTEMS: CONSTITUTIONAL: No fevers or chills. EYES: Denies any trouble with vision. No glasses. HEENT: No difficulties with hearing. No nosebleeds. No difficulty swallowing. RESPIRATORY: Denies pneumonia. Denies any troubles with breathing or dyspnea on exertion. CARDIOVASCULAR: History of pre-existing cardiomyopathy including CABG. 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 Patient reports ejection fraction less than 40% per his recollection. GASTROINTESTINAL: As above. Presents with pancreatitis. No pre-existing abdominal pain. GENITOURINARY: End stage renal disease and has peritoneal dialysis catheter. NEUROLOGICAL: Denies any numbness or tingling along the distal extremities. No seizure disorders or headaches. MUSCULOSKELETAL: Denies any back pain, stiffness or joint arthritis. SKIN: No current skin cancer. No rash. PSYCHIATRIC: Denies current depression or suicidal thoughts. ENDOCRINE: Denies current thyroid disorders. Has blood sugar glucose intolerance. HEME/LYMPHATIC: Denies any lumps and bumps around the neck. No recent deep venous thrombosis. ALLERGY/IMMUNOLOGY: No immunoglobulin therapy. No immune deficiencies. BREAST: Denies current breast lumps, pain or nipple discharge. PHYSICAL EXAM: VITALS: Reviewed CONSTITUTIONAL: Well developed and in no acute distress. EYES: Conjuctivae without sclera icterus. Pupils are equally round and reactive to light. Extraocular movements grossly intact. HEAD, EARS, NOSE, THROAT: Moist buccal mucosa. Head is atraumatic, normocephalic. Hears conversational speech. No nasal drainage. NECK: Supple. No JV distention. No thyroidomegaly. RESPIRATORY: Non-labored respirations and equal bilateral excursions. No gross wheezes. CARDIOVASCULAR: Regular rate and rhythm. Extremities without moderate edema. Palpable 2+ radial pulses. ABDOMEN: Soft. Non-tender. Nondistended. Peritoneal dialysis catheter clean dr y and intact. LYMPH: No neck lymphadenopathy. No axillary lymphadenopathy. MUSCULOSKELETAL: Nail and fingers with good capillary refill. SKIN: Warm and well perfused with good skin turgor. NEUROLOGIC: Cranial nerves II through XII grossly intact. Sensation upper and extremities intact. No focal or lateralizing signs. PSYCH: Appropriate affect. Alert and oriented to person, place and time. Di splays appropriate insight. CLINCAL LABS: Reviewed. Lipase on admission over 14,000. AST and ALT elevated improving. Creatinine 4.86. Potassium on admission 6.7, elevated. IMAGING: Independently reviewed ultrasound of the gallbladder demonstrating multiple gallstones. No Ashton sign. CT of the abdomen and pelvis reviewed demonstrating noncontrast study. No free air or free fluid identified. Heart enlarged. RADIOLOGY: Report reviewed CT of the abdomen and pelvis demonstrating gallstone s. Edema along pancreas. Ultrasound of gallbladder demonstrates a common bile duct 0.9 cm. ASSESSMENT: 1. Gallstone pancreatitis with elevated liver enzymes 2. End-stage renal disease, peritoneal dialysis catheter PLAN: 1. Patient presents with multiple comorbidities including pre-existing cardiomyopathy, CABG, end-stage renal disease for which complete cardiac risk assessment is required prior to any surgical intervention. At present, patient has moderate elevated risk for perioperative complications due to pre-existing comorbidities. 2. Outpatient management for gallstone pancreatitis described as liver enzymes continued to improve and cardiology assessment is pending. 3. GI consultation present for history of dilated common bile duct. 4. As patient is currently on Plavix, will need a minimum 5-7 days off Plavix prior to any surgical intervention to her increased risks of bleeding and hence outpatient management described. 5. Additionally, low-fat diet described Thank you for this kind consultation. Surgical - Exam Vital Signs Temp Pulse Resp BP Pulse Ox 98.6 F 75 16 131/72 99 12/23/19 15:53 12/23/19 15:53 12/23/19 15:53 12/23/19 15:53 12/23/19 15:53 Results - Labs 12/25/19 06:10 12/25/19 06:10 Abnormal Lab Results - Last 24 Hours (Table) 12/24/19 12/25/19 12/25/19 Range/Units 08:39 06:10 06:10 RBC 3.69 L (4.30-5.90) m/uL Hgb 11.4 L (13.0-17.5) gm/dL Hct 36.1 L (39.0-53.0) % Lymphocytes # 0.9 L (1.0-4.8) k/uL Sodium 135 L (137-145) mmol/L Potassium 5.4 H (3.5-5.1) mmol/L BUN 44 H (9-20) mg/dL Creatinine 4.86 H (0.66-1.25) mg/dL Glucose 103 H (74-99) mg/dL Calcium 7.9 L (8.4-10.2) mg/dL AST 138 H (17-59) U/L ALT 198 H (4-49) U/L Alkaline Phosphatase 143 H (38-126) U/L Total Protein 5.2 L (6.3-8.2) g/dL Albumin 3.0 L (3.5-5.0) g/dL Lipase 1738 H (23-300) U/L IgG4 1.1 L (3.0-175.0) mg/dL Microbiology - Last 24 Hours (Table) 12/25/19 00:03 Body Fluid Culture - Preliminary Dialysate 12/24/19 00:45 Gram Stain - Preliminary Abdomen Wound Culture - Preliminary Diabetes panel 12/25/19 Range/Units 06:10 Sodium 135 L (137-145) mmol/L Potassium 5.4 H (3.5-5.1) mmol/L Chloride 103 (98-107) mmol/L Carbon Dioxide 28 (22-30) mmol/L BUN 44 H (9-20) mg/dL Creatinine 4.86 H (0.66-1.25) mg/dL Glucose 103 H (74-99) mg/dL Calcium 7.9 L (8.4-10.2) mg/dL AST 138 H (17-59) U/L ALT 198 H (4-49) U/L Alkaline Phosphatase 143 H (38-126) U/L Total Protein 5.2 L (6.3-8.2) g/dL Albumin 3.0 L (3.5-5.0) g/dL Calcium panel 12/25/19 Range/Units 06:10 Calcium 7.9 L (8.4-10.2) mg/dL Albumin 3.0 L (3.5-5.0) g/dL Pituitary panel 12/25/19 Range/Units 06:10 Sodium 135 L (137-145) mmol/L Potassium 5.4 H (3.5-5.1) mmol/L Chloride 103 (98-107) mmol/L Carbon Dioxide 28 (22-30) mmol/L BUN 44 H (9-20) mg/dL Creatinine 4.86 H (0.66-1.25) mg/dL Glucose 103 H (74-99) mg/dL Calcium 7.9 L (8.4-10.2) mg/dL Adrenal panel 12/25/19 Range/Units 06:10 Sodium 135 L (137-145) mmol/L Potassium 5.4 H (3.5-5.1) mmol/L Chloride 103 (98-107) mmol/L Carbon Dioxide 28 (22-30) mmol/L BUN 44 H (9-20) mg/dL Creatinine 4.86 H (0.66-1.25) mg/dL Glucose 103 H (74-99) mg/dL Calcium 7.9 L (8.4-10.2) mg/dL Total Bilirubin 0.6 (0.2-1.3) mg/dL AST 138 H (17-59) U/L ALT 198 H (4-49) U/L Alkaline Phosphatase 143 H (38-126) U/L Total Protein 5.2 L (6.3-8.2) g/dL Albumin 3.0 L (3.5-5.0) g/dL Assessment and Plan (1) Ischemic cardiomyopathy Current Visit: Yes Status: Acute Code(s): I25.5 - ISCHEMIC CARDIOMYOPATHY SNOMED Code(s): 864810369 (2) Diabetes mellitus, insulin dependent (IDDM), uncontrolled Current Visit: Yes Status: Acute Code(s): EPX5180 - SNOMED Code(s): 85681062 (3) Antiplatelet or antithrombotic long-term use Current Visit: Yes Status: Acute Code(s): Z79.02 - MANAGER CONTRACTING (CURRENT) USE OF ANTITHROMBOTICS/ANTIPLATELETS SNOMED Code(s): 132778974 (4) Hx of CABG Current Visit: Yes Status: Acute Code(s): Z95.1 - PRESENCE OF AORTOCORONARY BYPASS GRAFT SNOMED Code(s): 109149444 (5) End stage renal disease Current Visit: Yes Status: Acute Code(s): N18.6 - END STAGE RENAL DISEASE SNOMED Code(s): 21810222 (6) Peritoneal dialysis catheter in place Current Visit: Yes Status: Acute Code(s): Z99.2 - DEPENDENCE ON RENAL DIALYSIS SNOMED Code(s): 146186056 (7) Acute pancreatitis Current Visit: Yes Status: Acute Code(s): K85.90 - ACUTE PANCREATITIS WITHOUT NECROSIS OR INFECTION, UNSP SNOMED Code(s): 964434818 (8) Gallstone pancreatitis Current Visit: Yes Status: Acute Code(s): K85.10 - BILIARY ACUTE PANCREATITIS WITHOUT NECROSIS OR INFECTION SNOMED Code(s): 56304085 (9) Hyperkalemia Current Visit: No Status: Acute Code(s): E87.5 - HYPERKALEMIA SNOMED Code(s): 41357057
--- NOTE | 2019-12-25 14:07 | P.CRDCN ---
History of Present Illness History of present illness: HISTORY OF PRESENTING ILLNESS This is a pleasant 54-year-old male past medical history significant for coronary artery disease s/p 4V bypass grafting and subsequent PCI of the grafts most recently in 2013, myocardial infarction 2006, ischemic cardiomyopathy, chronic systolic heart failure, hypertension, diabetes mellitus, chronic kidney disease on peritoneal dialysis, dyslipidemia and AICD implantation. He follows in the office with Dr. Jones out of [facility]. We have been asked to see in consultation for cardiac clearance. He presented to the hospital with symptoms of abdominal pain and has been diagnosed with acute gallstone pancreatitis. He has been evaluated by Dr. Lua and is deemed stable for discharge for possible outpatient surgical intervention. He states he just saw his store operations specialist within the last 1 month and underwent a full cardiac work-up to include stress test and echocardiogram. According to the patient his EF is around 20-25% and stable with no change recently and his stress test was normal. He is seen and examined up walking around his room in no acute distress. He denies chest pain, shortness of breath, dizziness or palpitations. 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 There is no EKG or chest xray obtained on this admission. Laboratory data reviewed, WBC 3.8, hgb 11.4, plt 151, sodium 135, potassium 5.4, creatinine 4.86, AST 138, ALT 198, alkaline phosphate 143, CRP 75, LDL 50, HDL 37, amylase on admission 462 repeat today 100, lipase on admission 14,480 repeat today 1,738. Current daily cardiac medications include aspirin 81 mg daily, plavix 75 mg daily, enalapril 5 mg BID and coreg 6.25 mg BID. REVIEW OF SYSTEMS At the time of my exam: CONSTITUTIONAL: Denies fever or chills. CARDIOVASCULAR: Denies chest pain, shortness of breath, orthopnea, PND or palpitations. RESPIRATORY: Denies cough. GASTROINTESTINAL: Denies abdominal pain, diarrhea, constipation, nausea or vomiting. MUSCULOSKELETAL: Denies myalgias. NEUROLOGIC: Denies numbness, tingling or weakness. ENDOCRINE: Denies fatigue, weight change, polydipsia or polyurina. GENITOURINARY: Denies burning, hematuria or urgency with micturation. HEMATOLOGIC: Denies history of anemia or bleeding. PHYSICAL EXAMINATION Blood pressure 117/63 heart rate 59 afebrile and maintaining oxygen saturation on room air. CONSTITUTIONAL: No apparent distress. HEENT: Head is normocephalic. Pupils are equal, round. Sclerae anicteric. Mucous membranes of the mouth are moist. No JVD. No carotid bruit. CHEST EXAMINATION: Lungs are clear to auscultation. No chest wall tenderness is noted on palpation or with deep breathing. HEART EXAMINATION: Regular rate and rhythm. S1, S2 heard. No murmurs, gallops or rub. ABDOMEN: Soft, nontender. Positive bowel sounds. EXTREMITIES: 2+ peripheral pulses, no lower extremity edema and no calf tende rness. NEUROLOGIC EXAMINATION: Patient is awake, alert and oriented x3. ASSESSMENT Acute gallstone pancreatitis Hyperkalemia Chronic systolic heart failure, clinically euvolemic Ischemic cardiomyopathy s/p AICD implantation Coronary artery disease s/p bypass grafting Chronic kidney disease currently on peritoneal dialysis Hypertension Diabetes mellitus PLAN Clinically the patient is euvolemic and not in acute heart failure. He has no symptoms of angina. Given his significant cardiac history the optimal approach would be to get clearance from his primary store operations specialist since his surgery is not currently planned for this admission. His recent stress test and echo should be requested to the surgeon performing the surgery closer to the time of surgery. The patient has a close relationship with his store operations specialist and would also prefer this approach. Thank you kindly for this consultation. Nurse Practitioner note has been reviewed, I agree with a documented findings and plan of care. Patient was seen and examined. Past Medical History Past Medical History: Diabetes Mellitus, Hypertension Additional Past Medical History / Comment(s): CHF. peritoneal port in abdomen. stage 4 kidney failure. History of Any Multi-Drug Resistant Organisms: None Reported Past Surgical History: Coronary Bypass/CABG, Heart Catheterization With Stent Additional Past Surgical History / Comment(s): Port in abdomen. Defibrillator. Hernia Repair - inguinal Past Anesthesia/Blood Transfusion Reactions: No Reported Reaction Date of Last Stent Placement:: 2010 Past Psychological History: No Psychological Hx Reported Smoking Status: Never smoker Past Alcohol Use History: None Reported Past Drug Use History: None Reported Medications and Allergies Home Medications Medication Instructions Recorded Confirmed Type Aspirin EC [Ecotrin Low Dose] 81 mg PO DAILY 10/14/19 12/23/19 History Clopidogrel [Plavix] 75 mg PO DAILY 10/14/19 12/23/19 History Insulin Aspart (For Pump) [NovoLOG 0.01 unit SQ-PUMP CONTINUOUS 10/14/19 12/23/19 History (For Pump)] Nitroglycerin Sl Tabs [Nitrostat] 0.4 mg SUBLINGUAL Q5M PRN 10/14/19 12/23/19 History carvediloL [Carvedilol] 6.25 mg PO BID 10/14/19 12/23/19 History Alirocumab [Praluent Pen] 150 mg SQ Q14D@1900 12/23/19 12/23/19 History Enalapril [Vasotec] 5 mg PO BID 12/23/19 12/23/19 History Gentamicin 0.1% Cream 1 applic TOPICAL BID 12/23/19 12/23/19 History Allergies Allergy/AdvReac Type Severity Reaction Status Date / Time fish oil Allergy Chest Pain Verified 12/23/19 19:45 promethazine [From Phenergan] Allergy Hallucinati Verified 12/23/19 19:45 ons Physical Exam Vitals: Vital Signs Temp Pulse Pulse Resp BP BP Pulse Ox 12/25/19 11:49 98.1 F 59 L 14 117/63 97 12/25/19 09:03 67 112/61 95 12/25/19 05:26 97.8 F 62 16 125/74 99 12/25/19 04:02 97.6 F 57 L 18 119/71 98 12/24/19 23:40 99.1 F 62 17 116/63 97 12/24/19 20:44 99.2 F 66 18 120/70 95 Intake and Output 12/24/19 12/25/19 12/25/19 22:59 06:59 14:59 Intake Total 830 1170 Balance 830 1170 Intake: Intake, IV Titration 240 580 Amount Piperacillin-Tazobactam 3 100 .375 gm In Sodium Chloride 0.9% 100 ml @ 25 mls/hr IVPB Q12H [facility] Rx# :[id number] Sodium Chloride 0.9% 1, 240 480 000 ml @ 60 mls/hr IV . [id number] [facility] Rx#:[id number] Oral 590 590 Other: Voiding Method Toilet Toilet # Voids 1 2 Results 12/25/19 06:10 12/25/19 06:10 Cardiac Enzymes 12/25/19 Range/Units 06:10 AST 138 H (17-59) U/L Coagulation 12/25/19 Range/Units 06:10 PT 10.3 (9.0-12.0) sec CBC 12/25/19 Range/Units 06:10 WBC 3.8 (3.8-10.6) k/uL RBC 3.69 L (4.30-5.90) m/uL Hgb 11.4 L (13.0-17.5) gm/dL Hct 36.1 L (39.0-53.0) % Plt Count 151 (150-450) k/uL Comprehensive Metabolic Panel 12/24/19 12/25/19 Range/Units 14:26 06:10 Sodium 135 L (137-145) mmol/L Potassium 5.7 H 5.4 H (3.5-5.1) mmol/L Chloride 103 (98-107) mmol/L Carbon Dioxide 28 (22-30) mmol/L BUN 44 H (9-20) mg/dL Creatinine 4.86 H (0.66-1.25) mg/dL Glucose 103 H (74-99) mg/dL Calcium 7.9 L (8.4-10.2) mg/dL AST 138 H (17-59) U/L ALT 198 H (4-49) U/L Alkaline Phosphatase 143 H (38-126) U/L Total Protein 5.2 L (6.3-8.2) g/dL Albumin 3.0 L (3.5-5.0) g/dL Current Medications Generic Name Dose Route Start Last Admin Trade Name Freq PRN Reason Stop Dose Admin Hydrocodone Bitart/Acetaminophen 1 each 12/24/19 00:25 12/25/19 00:12 Keller 5-325 PO 1 each Q6HR PRN Administration Pain Aspirin 81 mg 12/24/19 09:00 12/25/19 09:06 Aspirin PO 81 mg DAILY [facility] Administration Carvedilol 6.25 mg 12/24/19 07:30 12/25/19 09:06 Coreg PO 6.25 mg BID-W/MEALS [facility] Administration Clopidogrel Bisulfate 75 mg 12/24/19 09:00 12/25/19 09:06 Plavix PO 75 mg DAILY [facility] Administration Gentamicin Sulfate 1 applic 12/23/19 21:00 12/25/19 09:09 Gentamicin 0.1% Cream TOPICAL Not Given BID [facility] Heparin Sodium (Porcine) 5,000 unit 12/24/19 09:00 12/25/19 09:06 Heparin SQ 5,000 unit Q12HR [facility] Administration Hydromorphone HCl 0.5 mg 12/23/19 17:57 12/23/19 20:07 Dilaudid IVP 0.5 mg Q3HR PRN Administration Moderate Pain Hydromorphone HCl 1 mg 12/23/19 17:57 Dilaudid IVP Q3HR PRN Severe Pain Sodium Chloride 1,000 mls @ 60 mls/hr 12/23/19 18:00 12/24/19 17:56 Saline 0.9% IV Not Given .[id number] [facility] Peritoneal Dialysis Solution 1,500 mls @ 0 mls/hr 12/24/19 00:00 12/25/19 11:55 Delflex With 1.5% Dextrose INTRAPERIT 1,500 mls/hr Q6HR [facility] Administration As Directed Piperacillin Sod/Tazobactam 100 mls @ 25 mls/hr 12/24/19 23:00 12/25/19 11:26 Sod 3.375 gm/ Sodium Chloride IVPB 25 mls/hr Q12H [facility] Administration Insulin Aspart 0.01 unit 12/24/19 00:30 12/25/19 00:15 Novolog (For Pump) SQ-PUMP Not Given CONTINUOUS [facility] Lisinopril 10 mg 12/23/19 21:00 12/25/19 09:07 Zestril PO 10 mg BID [facility] Administration Lorazepam 0.5 mg 12/23/19 17:57 Ativan IV Q6HR PRN Anxiety Metoclopramide HCl 5 mg 12/24/19 00:25 12/24/19 07:39 Reglan IVP 5 mg Q6HR PRN Administration Nausea And Vomiting Naloxone HCl 0.2 mg 12/23/19 17:57 Narcan IV Q2M PRN Opioid Reversal Nitroglycerin 0.4 mg 12/24/19 00:24 Nitrostat SUBLINGUAL Q5M PRN Chest Pain Non-Formulary Medication 150 mg 12/24/19 22:00 12/24/19 22:26 Alirocumab [Praluent Pen] SQ 150 mg Q14D@1900 [facility] Administration Ondansetron HCl 4 mg 12/23/19 17:57 12/24/19 17:46 Zofran IVP 4 mg Q8HR PRN Administration Nausea And Vomiting Pantoprazole Sodium 40 mg 12/24/19 21:00 12/25/19 09:07 Protonix IV 40 mg BID [facility] Administration Intake and Output 12/24/19 12/25/19 12/25/19 22:59 06:59 14:59 Intake Total 830 1170 Balance 830 1170 Intake: Intake, IV Titration 240 580 Amount Piperacillin-Tazobactam 3 100 .375 gm In Sodium Chloride 0.9% 100 ml @ 25 mls/hr IVPB Q12H [facility] Rx# :[id number] Sodium Chloride 0.9% 1, 240 480 000 ml @ 60 mls/hr IV . [id number] [facility] Rx#:[id number] Oral 590 590 Other: Voiding Method Toilet Toilet # Voids 1 2 12/25/19 06:10 12/25/19 06:10
--- NOTE | 2019-12-25 15:57 | PN ---
PROGRESS NOTE Patient is seen for followup for end-stage renal disease. He is maintained on peritoneal dialysis, currently feeling well. He is tolerating oral intake. Patient was admitted with acute pancreatitis. He has been evaluated by Surgery. Plan is for cholecystectomy as outpatient, as ultrasound did show chronic small gallstones. PHYSICAL EXAMINATION: On examination today, blood pressure is 112/61, heart rate 59 per minute. Patient is afebrile. EXAMINATION OF THE HEART: S1 and S2. EXAMINATION OF LUNGS: Bilateral breath sounds are heard. ABDOMEN: Soft, non-tender. Examination of lower extremities shows no evidence of edema. PALLIATIVE CARE PHYSICIAN exam is grossly intact. LABS: Labs show sodium 135, potassium 5.4, BUN 44, creatinine 4.86. Lipase was down to 1738. ASSESSMENT: 1. End-stage renal disease, maintained on peritoneal dialysis. We will continue the current PD exchanges. 2. Mild hyperkalemia, currently improved. 3. Acute pancreatitis, mostly gallstone-related; to have outpatient cholecystectomy. 4. Chronic kidney disease mineral bone disorder. PLAN: Continue current PD exchanges. Follow up as outpatient at his primary dialysis clinic. MMODL / IJN: [id number] /
--- NOTE | 2019-12-25 16:48 | PN ---
PROGRESS NOTE DATE OF SERVICE: 12/25/2019 This 54-year-old gentleman who was admitted with acute severe pancreatitis also had possible alcoholic cholecystitis. The patient is being closely monitored. No chest pain. No palpitations. No fever. Patient is on broad-spectrum IV antibiotics. Cultures are negative so far. PHYSICAL EXAMINATION: Patient alert and oriented x3. Pulse 59, blood pressure 170/65, respiration 14, temperature 98.1, pulse ox 97% on room air. HEENT: Conjunctivae normal. NECK: No jugular venous distention. CARDIOVASCULAR SYSTEM: S1, S2 muffled. RESPIRATORY SYSTEM: Breath sounds diminished at the bases. Scattered rhonchi and crackles. ABDOMEN: Soft, obese. Peritoneal dialysis catheter. LEGS: No edema. No swelling. NERVOUS SYSTEM: No focal deficit. LABS: WBC 3.2, hemoglobin 11.4. Sodium 135, potassium 5.4, creatinine 4.86. AST, ALT elevated. Lipase is 1738. IgG4 is 1.1. ASSESSMENT: 1. Acute severe pancreatitis, undetermined etiology. 2. Possible acute cholelithiasis and cholecystitis. 3. Possibly infective peritoneal dialysis catheter site. 4. Chronic renal failure and end-stage renal disease, on peritoneal dialysis. 5. Anemia, normocytic anemia of chronic renal disease. 6. Elevated AST. 7. History of diabetes mellitus, type 2. 8. Hypertension. 9. History of congestive heart failure; ejection fraction unknown. 10.History of automated implantable cardioverter defibrillator. 11.History of coronary artery disease, coronary artery bypass grafting, stent. 12.History of hernia repair. RECOMMENDATIONS AND DISCUSSION: I recommend to continue current medications, continue with the monitoring, symptomatic treatment. Continue the antibiotics. Guarded prognosis because of multiple complex medical issues. Further recommendations to follow. MMODL / IJN: [id number] /
--- NOTE | 2019-12-25 19:00 | PN ---
PROGRESS NOTE DATE OF SERVICE: 12/25/2019 REASON FOR FOLLOWUP: 1. Gallstone pancreatitis and a question of cholecystitis. 2. Dialysis catheter site cellulitis. INTERVAL HISTORY: The patient is currently afebrile, has been breathing comfortably. Abdominal pain has improved. No nausea or vomiting. No chest pain, shortness of breath or cough. No drainage from his dialysis catheter site. PHYSICAL EXAMINATION: Blood pressure 117/63 with a pulse of 59, temperature 98.1. He is 97% on room air. General description is a middle-aged male up in the chair in no distress. RESPIRATORY SYSTEM: Unlabored breathing. Clear to auscultation anteriorly. HEART: S1, S2. Regular rate and rhythm. ABDOMEN: Soft. No tenderness. Dialysis catheter site currently with no drainage or redness. LABS: Hemoglobin is 11.4, white count 3.8. BUN of 44, creatinine 4.86. Liver enzymes have slightly improved. Lipase down to 1738. DIAGNOSTIC IMPRESSION AND PLAN: 1. Patient with acute gallstone pancreatitis with a question of cholecystitis. Patient is currently covered with Zosyn. 2. Patient with peritoneal dialysis catheter site cellulitis and drainage. Currently cultures are pending. We will keep the patient on Zosyn and monitor his clinical course closely. MMODL / IJN: [id number] /
[2019-12-25] MEDS: SODIUM CHLORIDE 0.9% 1,000 ML IV SCH (19:42)
--- NOTE | 2019-12-25 21:51 | PN ---
PROGRESS NOTE DATE OF DICTATION: December 25, 2019 Patient is a 54-year-old pleasant white male admitted to the hospital with acute biliary pancreatitis. He is feeling better. Abdominal pain has resolved. No nausea, no vomiting. On a full liquid diet, tolerating well. PHYSICAL EXAMINATION: Appears comfortable in no apparent distress. Vital signs stable. Blood pressure 140/72, pulse rate 61, temperature 98.2. HEENT examination unremarkable. Conjunctivae pink. Sclerae anicteric. Oral cavity no lesions. NECK no JVD or lymph node enlargement. CHEST was clear to auscultation. HEART: Regular rate and rhythm. ABDOMEN: Soft, very minimal tenderness on deep palpation. EXTREMITIES: No pedal edema. SKIN no rashes. NEUROLOGIC: Alert and oriented x3. No focal deficits. LABS: From today lipase is 1738, amylase 100. AST and ALT have decreased to 138 and 193 respectively. T-bilirubin 0.6, alkaline phosphatase 143, WBC 3.8, hemoglobin 11.4, and platelets normal. IMPRESSION: 1. Acute biliary pancreatitis. Amylase and lipase improving. Abdominal pain has completely resolved. Presently on a full liquid diet, tolerating well. 2. Mild elevation of serum transaminases. Rule out CBD stone. Serum transaminases are improving, which makes it likely that he has passed the stone spontaneously. T- bilirubin is normal at this point. 3. History of congestive heart failure/cardiomyopathy status post defibrillator. 4. End-stage renal disease, on peritoneal dialysis. 5. History of diabetes mellitus and hypertension. RECOMMENDATIONS: 1. Advance diet as tolerated. 2. Follow labs closely. 3. Continue antibiotics for possible dialysis catheter site cellulitis. 4. Await recommendations from Dr. Lua regarding gallbladder surgery. 5. We will follow with you closely. Thank you for this consultation. MMODL / IJN: [id number] /
[2019-12-26] MEDS: Insulin Aspart (For Pump) 100 UNIT/ML VIAL SQ-PUMP SCH (01:22)
[2019-12-26] MEDS: DIALYSIS DEX INTRAPERIT SCH ×2 (05:42→12:16)
[2019-12-26] MEDS: SODIUM CHLORIDE 0.9% 1,000 ML IV SCH (05:43)
[2019-12-26 07:05] LABS: HCT 34.6 % (39.0-53.0); HGB 10.7 gm/dL (13.0-17.5); MCH 30.3 pg (25.0-35.0); MCV 97.7 fL (80.0-100.0); Mean Platelet Volume 8.4; Platelet Count 137 k/uL (150-450); RBC 3.54 m/uL (4.30-5.90); RDW 13.5 % (11.5-15.5); WBC 3.6 k/uL (3.8-10.6)
[2019-12-26 07:11] LABS: Albumin 2.6 g/dL (3.5-5.0); Calcium 7.8 mg/dL (8.4-10.2); Total Bilirubin 0.4 mg/dL (0.2-1.3); Total Protein 4.7 g/dL (6.3-8.2)
--- NOTE | 2019-12-26 08:55 | CONS ---
CONSULTATION DATE OF DICTATION: December 24, 2019. REQUESTING PHYSICIAN: Dr. Jonathan Mccartney. REASON FOR CONSULTATION: Acute pancreatitis. HISTORY OF PRESENT ILLNESS: The patient is a 54-year-old pleasant white male in the hospital, who presents to the emergency room yesterday complaining of severe epigastric pain, which has been progressively getting worse. He also has history of end-stage renal disease, undergoing dialysis. This morning he is saying that the abdominal pain has improved. The nausea has improved. He is on a clear liquid diet, tolerating well. No prior history of pancreatitis. At the time of admission to the hospital, serum transaminases are minimally elevated, but today ALT and AST has increased significantly with AST of 206, and ALT of 218, T bilirubin 4.9, and alkaline phosphatase is 115. He did have an ultrasound of the gallbladder done that did show evidence of gallstones and questionable acute cholecystitis. No evidence of biliary ductal dilation. The patient has a defibrillator and hence an MRCP could not be performed to rule out CBD stones. Lipase at the time of admission hospital of 14,000 and today it is 2671. PAST MEDICAL HISTORY: Significant for hypertension, congestive heart failure with an ejection fraction of 15%. History of AICD defibrillator placement, diabetes mellitus, hypertension, chronic kidney disease, peritoneal catheter in place, history of CABG, inguinal hernia repair. PAST SURGICAL HISTORY: Hernia repair, peritoneal catheter placement, AICD placement. ALLERGIES: TO FISH OIL AND PHENERGAN. MEDICATIONS: Medications at home include aspirin, Plavix, Vasotec, NovoLog insulin pump, Nitrostat, carvedilol, Gentamicin cream. SOCIAL HISTORY: No smoking. No alcohol use. FAMILY HISTORY: Unremarkable. REVIEW OF SYSTEMS: CARDIOPULMONARY: No chest pain or shortness of breath. no dysuria or hematuria. MUSCULOSKELETAL unremarkable. Skin unremarkable. Endocrine unremarkable other than longstanding history of diabetes mellitus. Neurology unremarkable. Psychiatric: Anxiety. ENT: Vision unremarkable. Constitutional: No recent weight loss. No fever, chills, night sweats. PHYSICAL EXAMINATION: Blood pressure 115/55, pulse is 70, temperature 96.9. HEENT examination unremarkable. Conjunctivae pink. Sclerae anicteric. Oral cavity no lesions. Neck no JVD or lymph node enlargement. The chest was clear to auscultation. HEART: Regular rate and rhythm. ABDOMEN is slightly distended. There was mild tenderness in the epigastric area. Catheter in place. Extremities: No pedal edema. Skin no rashes. Neuro: She is alert and oriented x3. No focal deficits. LABS: From yesterday WBC 10.1, hemoglobin 12.4, platelets normal. Basic metabolic panel was within normal limits. BUN 41, creatinine 4.3, lipase 12706 and amylase was 462. Today lipase is 2671. AST, ALT 206, 218 respectively. T-bilirubin 0.9, alkaline phosphatase 150 yesterday and AST and ALT were 73 and 40 respectively. Ultrasound showed gallstones and questionable acute cholecystitis. IMPRESSION: 1. The patient presents to hospital with new onset of epigastric pain and elevated amylase and lipase consistent with acute pancreatitis. Serum transaminases were almost normal yesterday, but increased in 200s range, which makes it likely we are dealing with biliary pancreatitis. Ultrasound of the gallbladder did show evidence of gallstones and slightly dilated common bile duct measuring 9 mm noted. Most likely we are dealing with biliary pancreatitis at this time. Labs are improving. Clinically patient has significantly improved. 2. History of congestive heart failure with an ejection fraction of 18%, status post AICD/defibrillator placement. 3. History of coronary artery disease on aspirin and Plavix. 4. End-stage renal disease, on dialysis. RECOMMENDATIONS: 1. Clear liquid diet. 2. Surgical consultation. 3. Monitor LFTs closely. 4. Patient not a candidate for MRCP because of defibrillator and at this time we will continue to watch his serum transaminases closely. 5. We will follow with you. Thank you for this consultation. MMODL / IJN: [id number] /
[2019-12-26] MEDS: ASPIRIN 81 MG PO SCH (09:07)
[2019-12-26] MEDS: carvediloL 6.25 MG TAB PO SCH (09:07)
[2019-12-26] MEDS: lisinopriL 10 MG TAB PO SCH (09:07)
[2019-12-26] MEDS: GENTAMICIN 0.1% CREAM 15 GM TUBE TOPICAL SCH (09:07)
[2019-12-26] MEDS: HEPARIN SODIUM,PORCINE 5,000 UNIT/ML 1 ML VIAL SQ SCH (09:07)
[2019-12-26] MEDS: CLOPIDOGREL 75 MG TAB PO SCH (09:07)
[2019-12-26] MEDS: PANTOPRAZOLE 40 MG/10 ML VIAL IV SCH (09:08)
[2019-12-26 10:11] LABS: Eosinophils # (M) 0.29 k/uL (0-0.7); Lymphocytes # (M) 1.08 k/uL (1.0-4.8); Neutrophils # (M) 1.73 k/uL (1.3-7.7); Neutrophils % (M) 48 %; Nucleated Red Blood Cells 0 /100 WBC (0-0); Total Cells Counted 100
[2019-12-26 10:13] LABS: Anisocytosis (M) Present; Poikilocytosis (M) Present
[2019-12-26 11:03] VITALS: BMI 21.7
[2019-12-26] MEDS: PIPERACILLIN-TAZOBACTAM 3.375 GM in SODIUM CHLORIDE 0.9% 100 ML IVPB SCH (11:31)
[2019-12-26 12:09] VITALS: BP 145/89; PULSE 59; RESP 17; TEMP 97.2
--- NOTE | 2019-12-26 12:09 | P.PN ---
<Alix Fraire - Last Filed: 12/26/19 11:55> Subjective Progress Note Date: 12/26/19 CHIEF COMPLAINT: Abdominal pain HISTORY OF PRESENT ILLNESS: Patient is being followed for gallstone pancreatitis. Abdominal pain has resolved. He is tolerating a regular diet. LFTs continued to trend down lipase 971. Hemoglobin 10.7. Patient is afebrile. He reports having bowel movements. Denies any nausea or vomiting. Patient seen by dietitian for low-fat diet PHYSICAL EXAM: VITAL SIGNS: Reviewed GENERAL: Well-developed in no acute distress. HEENT: No sclera icterus. Extraocular movements grossly intact. Moist buccal mucosa. Head is atraumatic, normocephalic. Hears conversational speech. No nasal drainage. NECK: Supple without lymphadenopathy. CHEST: Non-labored respirations and equal bilateral excursions. CARDIOVASCULAR: Regular rate with regular rhythm. Palpable 2+ radial pulses. ABDOMEN: Soft. Nondistended. Nontender. MUSCULOSKELETAL: No clubbing or cyanosis. NEUROLOGIC: No focal or lateralizing signs. Cranial nerves II through XII grossly intact. PSYCH: Appropriate affect. Alert and oriented to person, place and time. SKIN: Well perfused. Good skin turgor. ASSESSMENT: 1. Acute gallstone pancreatitis: Patient currently denies any pain. He is tolerating diet. LFTs and amylase and lipase are trending down 2. End-stage renal disease on peritoneal dialysis 3. Possible infected peritoneal dialysis catheter site. Followed by infectious disease. Antibiotics per infectious disease 4. History of coronary artery disease with previous CABG and cardiac stents 5. History of ischemic cardiomyopathy with AICD placement PLAN: 1. Outpatient management of gallstone pancreatitis with Dr. Lua. We'll have patient follow-up in the office on 01/02/2020 2. Patient presents with multiple comorbidities including pre-existing cardiomyopathy, CABG, end-stage renal disease for which complete cardiac risk assessment is required prior to any surgical intervention. At present, patient has moderate elevated risk for perioperative complications due to pre-existing comorbidities. 3. Patient to follow-up outpatient with his primary care foiling machine operator 4. Recommend patient to continue a low-fat diet. 5. Management of elevated LFTs per GI service 6. As patient is currently on Plavix, will need a minimum 5-7 days off Plavix prior to any surgical intervention to his increased risks of bleeding and hence outpatient management described. Physician Multiple Effect Evaporator Operator note has been reviewed by physician. Signing provider agrees with the documented findings, assessment, and plan of care. Objective - Vital Signs Vital signs: Vital Signs Temp 97.9 F 12/26/19 05:00 Pulse 65 12/26/19 09:00 Resp 18 12/26/19 05:00 BP 147/79 12/26/19 09:00 Pulse Ox 98 12/26/19 05:00 Intake & Output 12/25/19 12/26/19 12/26/19 18:59 06:59 18:59 Intake Total 1220 Balance 1220 Weight 72.5 kg 72.5 kg Intake: Intake, IV Titration 820 Amount Piperacillin-Tazobactam 3 100 .375 gm In Sodium Chloride 0.9% 100 ml @ 25 mls/hr IVPB Q12H [facility] Rx# :[id number] Sodium Chloride 0.9% 1, 720 000 ml @ 60 mls/hr IV . [id number] [facility] Rx#:[id number] Oral 400 Other: Voiding Method Toilet Toilet Toilet # Voids 1 1 - Labs CBC & Chem 7: 12/26/19 06:33 12/26/19 06:33 Labs: Abnormal Lab Results - Last 24 Hours (Table) 12/26/19 12/26/19 Range/Units 06:33 06:33 WBC 3.6 L (3.8-10.6) k/uL RBC 3.54 L (4.30-5.90) m/uL Hgb 10.7 L (13.0-17.5) gm/dL Hct 34.6 L (39.0-53.0) % Plt Count 137 L (150-450) k/uL Sodium 136 L (137-145) mmol/L BUN 43 H (9-20) mg/dL Creatinine 4.83 H (0.66-1.25) mg/dL Glucose 193 H (74-99) mg/dL Calcium 7.8 L (8.4-10.2) mg/dL AST 91 H (17-59) U/L ALT 163 H (4-49) U/L Alkaline Phosphatase 131 H (38-126) U/L Total Protein 4.7 L (6.3-8.2) g/dL Albumin 2.6 L (3.5-5.0) g/dL Lipase 971 H (23-300) U/L Microbiology - Last 24 Hours (Table) 12/25/19 00:03 Gram Stain - Preliminary Dialysate Body Fluid Culture - Preliminary 12/24/19 22:39 Blood Culture - Preliminary Blood No Growth after 24 hours 12/24/19 00:45 Gram Stain - Preliminary Abdomen Wound Culture - Preliminary <Shreya Lua N - Last Filed: 12/26/19 16:22> Subjective Patient seen and evaluated with above. Patient reports resolution of abdominal pain. Due to current Plavix use and pre-existing heart disease, patient to follow-up with his foiling machine operator in [place]. Patient will follow up in the office for outpatient management of gallstone pancreatitis. Objective - Vital Signs Vital signs: Vital Signs Temp 97.2 F L 12/26/19 12:09 Pulse 59 L 12/26/19 12:09 Resp 17 12/26/19 12:09 BP 145/89 12/26/19 12:09 Pulse Ox 97 12/26/19 12:09 Intake & Output 12/25/19 12/26/19 12/26/19 18:59 06:59 18:59 Intake Total 1220 Balance 1220 Weight 72.5 kg 72.5 kg Intake: Intake, IV Titration 820 Amount Piperacillin-Tazobactam 3 100 .375 gm In Sodium Chloride 0.9% 100 ml @ 25 mls/hr IVPB Q12H [facility] Rx# :[id number] Sodium Chloride 0.9% 1, 720 000 ml @ 60 mls/hr IV . [id number] [facility] Rx#:[id number] Oral 400 Other: Voiding Method Toilet Toilet Toilet # Voids 1 1 - Labs CBC & Chem 7: 12/26/19 06:33 12/26/19 06:33 Labs: Abnormal Lab Results - Last 24 Hours (Table) 12/26/19 12/26/19 Range/Units 06:33 06:33 WBC 3.6 L (3.8-10.6) k/uL RBC 3.54 L (4.30-5.90) m/uL Hgb 10.7 L (13.0-17.5) gm/dL Hct 34.6 L (39.0-53.0) % Plt Count 137 L (150-450) k/uL Sodium 136 L (137-145) mmol/L BUN 43 H (9-20) mg/dL Creatinine 4.83 H (0.66-1.25) mg/dL Glucose 193 H (74-99) mg/dL Calcium 7.8 L (8.4-10.2) mg/dL AST 91 H (17-59) U/L ALT 163 H (4-49) U/L Alkaline Phosphatase 131 H (38-126) U/L Total Protein 4.7 L (6.3-8.2) g/dL Albumin 2.6 L (3.5-5.0) g/dL Lipase 971 H (23-300) U/L Microbiology - Last 24 Hours (Table) 12/24/19 00:45 Gram Stain - Final Abdomen Wound Culture - Final 12/25/19 00:03 Gram Stain - Preliminary Dialysate Body Fluid Culture - Preliminary 12/24/19 22:39 Blood Culture - Preliminary Blood No Growth after 24 hours Assessment and Plan (1) Ischemic cardiomyopathy Status: Acute Code(s): I25.5 - ISCHEMIC CARDIOMYOPATHY SNOMED Code(s): 235074169 (2) Diabetes mellitus, insulin dependent (IDDM), uncontrolled Status: Acute Code(s): JKB5948 - SNOMED Code(s): 67428122 (3) Antiplatelet or antithrombotic long-term use Status: Acute Code(s): Z79.02 - MUTUAL FUND ACCOUNTANT (CURRENT) USE OF ANTITHROMBOTICS/ANTIPLATELETS SNOMED Code(s): 670036657 (4) Hx of CABG Status: Acute Code(s): Z95.1 - PRESENCE OF AORTOCORONARY BYPASS GRAFT SNOMED Code(s): 797990310 (5) End stage renal disease Status: Acute Code(s): N18.6 - END STAGE RENAL DISEASE SNOMED Code(s): 14984297 (6) Peritoneal dialysis catheter in place Status: Acute Code(s): Z99.2 - DEPENDENCE ON RENAL DIALYSIS SNOMED Code(s): 974477599 (7) Acute pancreatitis Status: Acute Code(s): K85.90 - ACUTE PANCREATITIS WITHOUT NECROSIS OR INFECTION, UNSP SNOMED Code(s): 833428385 (8) Gallstone pancreatitis Status: Acute Code(s): K85.10 - BILIARY ACUTE PANCREATITIS WITHOUT NECROSIS OR INFECTION SNOMED Code(s): 15186931 (9) Hyperkalemia Status: Acute Code(s): E87.5 - HYPERKALEMIA SNOMED Code(s): 24124937
--- NOTE | 2019-12-26 12:50 | PN ---
PROGRESS NOTE The patient is seen for followup for end-stage renal disease. He is maintained on peritoneal dialysis, tolerating his treatments well. Plans are for outpatient cholecystectomy. PHYSICAL EXAMINATION: On examination today, blood pressure was 145/89, heart rate of 59 per minute, patient is afebrile. Patient is euvolemic. No evidence of edema bilateral lower extremities. His abdomen has been soft. LABS: Show sodium 136, potassium 5.0, BUN 43, creatinine 4.83, hemoglobin of 10.7 g/dL. ASSESSMENT: 1. End-stage renal disease, maintained on peritoneal dialysis. Will continue with PD for now. 2. Hyperkalemia, currently improved. 3. Acute gallstone pancreatitis, scheduled for outpatient cholecystectomy. PLAN: Patient can be discharged from nephrology standpoint. Follow up at his primary clinic and with Surgery as outpatient. MMODL / IJN: [id number] /
--- NOTE | 2019-12-26 14:11 | PN ---
PROGRESS NOTE DATE OF SERVICE: 12/26/2019 REASON FOR FOLLOW UP: 1. Gallstone pancreatitis. 2. Drainage from his clinical dialysis catheter site. INTERVAL HISTORY: Patient is currently afebrile. The patient is feeling better. Breathing comfortably. The patient denies having any abdominal pain. No nausea, vomiting. There is no further drainage from his peritonitis catheter site. Overall, feeling better. Wants to go home. PHYSICAL EXAMINATION: Blood pressure 145/89 with a pulse of 59, temperature 97.2. He is 97% on room air. General description is a middle-aged male, up in the chair in no distress. RESPIRATORY SYSTEM: Unlabored breathing, clear to auscultation anteriorly. HEART: S1, S2. Regular rate and rhythm. ABDOMEN: Soft, no guarding with no tenderness. There is no drainage from his peritoneal catheter site. LABS: Hemoglobin is 10.8, white count 3.6, BUN of 43, creatinine 4.83. Liver enzymes have improved. Urine culture has been negative. Blood culture negative and the PD dialysis catheter culture has been negative as well. DIAGNOSTIC IMPRESSION AND PLAN: Patient admitted to the hospital with abdominal pain has been diagnosed with gallstone pancreatitis. The patient is being monitored by Surgery. The patient overall clinical improvement, he is afebrile, white count normal and wants to go home. Antibiotic was switched over to Augmentin for a short course. Discussed with the nurse practitioner working on discharge. MMSTEPHANIAL / IJN: [id number] /
--- NOTE | 2019-12-26 15:02 | P.DS ---
Providers Date of admission: 12/23/19 17:57 Expected date of discharge: 12/26/19 Attending physician: Any Abdalla Consults: 12/23/19 17:58 Consult Physician Urgent Consulting Provider: Ashli Vickers Consult Reason/Comments: Acute pancreatitis Do you want consulting provider notified?: Yes 12/23/19 20:13 Consult Physician Stat Consulting Provider: Mckayla Junior Consult Reason/Comments: PD Do you want consulting provider notified?: Yes 12/24/19 00:01 Consult Physician Routine Consulting Provider: Jeffery Caceres Consult Reason/Comments: cellulitis around PD catheter Do you want consulting provider notified?: Yes, Notify in am 12/24/19 13:15 Consult Physician Urgent Consulting Provider: Shreya Lua Consult Reason/Comments: gall stone pancreatitis Do you want consulting provider notified?: Yes 12/25/19 11:58 Consult Physician Routine Consulting Provider: Erick Buckner Consult Reason/Comments: cardiac clearance Do you want consulting provider notified?: Yes Primary care physician: Ellen Mccartney [facility] Course: Final diagnosis Acute severe pancreatitis, undetermined etiology Possible acute cholelithiasis and cholecystitis Possible infected peritoneal dialysis catheter site Chronic renal failure and end-stage renal disease, on peritoneal dialysis Anemia, normocytic anemia of chronic renal disease Elevated AST History of diabetes mellitus type 2 Hypertension history of congestive heart failure, ejection fraction unknown History of automated implantable cardioverter defibrillator History of coronary artery disease, CABG, stent history of hernia repair Full code Discharge disposition Patient is being discharged in a stable condition with guarded prognosis to home. Patient will follow-up with Dr. Ellen Mccartney upon discharge. Patient also instructed to follow-up with Dr. Cordero in the outpatient setting. Patient will continue with a short course of oral antibiotics in the form of Augmentin 500 mg twice daily for the next 10 days. Total time taken is greater than 35 minutes. History of present illness This is an 54-year-old male who was recently admitted with Acute severe pancreatitis and also possible alcoholic cholecystitis and was being closely monitored. Infectious disease was following. Patient was also evaluated by surgery And GI recommending outpatient follow-up and no surgical intervention at this time. Patient to discuss surgical intervention in the outpatient setting. Patient was maintained on IV antibiotics in the form of Zosyn and we'll transition to Augmentin 500 per 125 mg twice daily for the next 10 days. Patient is currently maintained on peritoneal dialysis and will continue his current regimen. Patient was treated with antibiotics in the form of IV Zosyn and will be transitioned oral Augmentin twice daily for the next 10 days and then may discontinue. Patient would like to go home today. Patient is tolerating diet. Currently no reports of chest pain, shortness of breath, or palpitations. Patient is afebrile. No reports of nausea or vomiting and patient is tolerating diet. Guarded prognosis. On exam vital signs are stable. Temp is 97.2F, pulse is 59, respirations are 17, blood pressure is 145/89, oxygen saturation is 97% on room air. Cardio S1, S2 are muffled. Respiratory shows diminished breath sounds at the bases with No scattered rhonchi or wheezing noted. Abdomen is soft and nontender. Nervous system shows no focal deficits. Please refer to medication reconciliation sheet for a list of medications. Patient Condition at Discharge: Fair Plan - Discharge Summary New Discharge Prescriptions: New Amoxicillin/Potassium Clav [Augmentin 500-125 Tablet] 1 tab PO Q12HR 10 Days #20 tab Continue Nitroglycerin Sl Tabs [Nitrostat] 0.4 mg SUBLINGUAL Q5M PRN PRN Reason: Chest Pain Clopidogrel [Plavix] 75 mg PO DAILY Aspirin EC [Ecotrin Low Dose] 81 mg PO DAILY Insulin Aspart (For Pump) [NovoLOG (For Pump)] 0.01 unit SQ-PUMP CONTINUOUS carvediloL [Carvedilol] 6.25 mg PO BID Gentamicin 0.1% Cream 1 applic TOPICAL BID Alirocumab [Praluent Pen] 150 mg SQ Q14D@1900 Enalapril [Vasotec] 5 mg PO BID Discharge Medication List Aspirin EC [Ecotrin Low Dose] 81 mg PO DAILY 10/14/19 [History] Clopidogrel [Plavix] 75 mg PO DAILY 10/14/19 [History] Insulin Aspart (For Pump) [NovoLOG (For Pump)] 0.01 unit SQ-PUMP CONTINUOUS 10/14/19 [History] Nitroglycerin Sl Tabs [Nitrostat] 0.4 mg SUBLINGUAL Q5M PRN 10/14/19 [History] carvediloL [Carvedilol] 6.25 mg PO BID 10/14/19 [History] Alirocumab [Praluent Pen] 150 mg SQ Q14D@1900 12/23/19 [History] Enalapril [Vasotec] 5 mg PO BID 12/23/19 [History] Gentamicin 0.1% Cream 1 applic TOPICAL BID 12/23/19 [History] Amoxicillin/Potassium Clav [Augmentin 500-125 Tablet] 1 tab PO Q12HR 10 Days #20 tab 12/26/19 [Rx] Follow up Appointment(s)/Referral(s): Ellen Mccartney DO [Primary Care Provider] - 12/27/19 2:20 pm Shreya Lua MD [STAFF PHYSICIAN] - 01/02/20 3:00 pm Patient Instructions/Handouts: Gallstones (DC), Low Fat Diet (DC) Activity/Diet/Wound Care/Special Instructions: Avoid fatty foods Activity Limited until follow-up Follow-up with primary care provider upon discharge Follow-up with surgery in the outpatient setting Follow-up with GI in the outpatient setting continue with antibiotics for 10 days until finished Discharge Disposition: HOME SELF-CARE
--- NOTE | 2019-12-26 20:44 | PN ---
PROGRESS NOTE DATE OF DICTATION: 12/26/2019 This patient is a 54-year-old white male admitted to the hospital with acute biliary pancreatitis. He is doing better. Abdominal pain has resolved. He is being discharged home today. He denies any symptoms. PHYSICAL EXAMINATION: He appears comfortable. Blood pressure 125/89, pulse rate 59, temperature 97.2. HEENT examination unremarkable. Conjunctivae pink. Sclerae anicteric. Oral cavity no lesions. NECK: No JVD or lymph node enlargement. CHEST: Clear to auscultation. HEART: Regular rate and rhythm. ABDOMEN: Soft. Bowel sounds are positive. No organomegaly. EXTREMITIES: No pedal edema. NEUROLOGIC: Alert and oriented x3. No focal deficits. LABS: No labs available from today. IMPRESSION: 1. Acute gallstone pancreatitis, resolved. Patient seen by Dr. Lua. He will be scheduled for gallbladder surgery on an outpatient basis by Dr. Lua. 2. Ischemic cardiomyopathy. 3. Mild elevation of serum transaminases that are gradually improving. RECOMMENDATIONS: 1. Agree with discharge home. 2. Follow up with Dr. Lua. 3. Repeat LFTs in 2 weeks, and if they are still elevated, patient was advised to follow up in the office. Thank you for this consultation. MMODL / IJN: [id number] /
== END 2019-12-26 13:35 | disposition home or self-care (01) | DRG 438 ==
LOC: EC 15:45 → 5NMEDONC 17:57
PROVIDERS: ADMIT Hospitalist; ATTEND Hospitalist
PROC: 5A1D70Z Performance of Urinary Filtration, Intermittent, Less than 6 Hours Per Day (ICD-10-PCS; principal; 2019-12-23)
DX: K85.10 Biliary acute pancreatitis without necrosis or infection (principal); N18.6 End stage renal disease; L03.311 Cellulitis of abdominal wall; T81.40XA Infection following a procedure, unspecified, initial encounter; I50.22 Chronic systolic (congestive) heart failure; I13.0 Hypertensive heart and chronic kidney disease with heart failure and stage 1 through stage 4 chronic kidney disease, or unspecified chronic kidney disease; K80.60 Calculus of gallbladder and bile duct with cholecystitis, unspecified, without obstruction; Z96.41 Presence of insulin pump (external) (internal); I25.10 Atherosclerotic heart disease of native coronary artery without angina pectoris; E78.5 Hyperlipidemia, unspecified; E11.22 Type 2 diabetes mellitus with diabetic chronic kidney disease; D63.1 Anemia in chronic kidney disease; I25.5 Ischemic cardiomyopathy; E87.5 Hyperkalemia; E83.89 Other disorders of mineral metabolism; E11.65 Type 2 diabetes mellitus with hyperglycemia; Z11.59 Encounter for screening for other viral diseases; Z79.82 Long term (current) use of aspirin; Z79.4 Long term (current) use of insulin; Z79.899 Other long term (current) drug therapy; Z79.02 Long term (current) use of antithrombotics/antiplatelets; Z88.8 Allergy status to other drugs, medicaments and biological substances; Z91.013 Allergy to seafood; Z95.5 Presence of coronary angioplasty implant and graft; Z95.1 Presence of aortocoronary bypass graft; Z95.810 Presence of automatic (implantable) cardiac defibrillator; Z99.2 Dependence on renal dialysis; I25.2 Old myocardial infarction; Z98.890 Other specified postprocedural states
CPT/HCPCS: 36415; 71045; 74176; 76705; 80053; 80061; 81001; 82150; 82787; 83605; 83690; 84132; 85025; 85610; 86140; 87040; 87070; 87075; 87205; 89050; 96361; 96374; 96375; 99285

== ENCOUNTER 2020-04-07 16:48 | Emergency (ER) | payer MEDICARE, BC ==
[2020-04-07] MEDS ORDERED: SODIUM CHLORIDE 0.9% 500 ML 500 ML IV STA (17:16)
[2020-04-07] MEDS ORDERED: ONDANSETRON 4 MG/2 ML VIAL IVP STA (17:17)
--- NOTE | 2020-04-07 17:19 | ED ---
General Adult HPI - General Chief complaint: Abdominal Pain Stated complaint: Dehydration Time Seen by Provider: 04/07/20 17:07 Source: patient, RN notes reviewed, old records reviewed Mode of arrival: ambulatory Limitations: no limitations - History of Present Illness Initial comments: 55-year-old male history of end-stage renal disease on peritoneal dialysis, type 1 diabetes presenting for evaluation of nausea vomiting, dehydration. Patient states he had peritoneal dialysis Monday night and Monday night with ultrafiltration of 500 mL each night. He had previously had some constipation and had taken a large amount of stool softeners resulting in diarrhea. He has not been eating or drinking because he has not felt well. His peritoneal dialys is catheter was replaced secondary to infection approximately one week ago. He has had nausea and vomiting as well. No fever. - Related Data Home Medications Medication Instructions Recorded Confirmed Aspirin EC [Ecotrin Low Dose] 81 mg PO DAILY 10/14/19 04/07/20 Clopidogrel [Plavix] 75 mg PO DAILY 10/14/19 04/07/20 Insulin Aspart (For Pump) [NovoLOG 0.01 unit SQ-PUMP CONTINUOUS 10/14/19 04/07/20 (For Pump)] Nitroglycerin Sl Tabs [Nitrostat] 0.4 mg SL Q5M PRN 10/14/19 04/07/20 carvediloL [Carvedilol] 6.25 mg PO BID 10/14/19 04/07/20 Alirocumab [Praluent Pen] 150 mg SQ Q14D@1900 12/23/19 04/07/20 Cephalexin [Keflex] 500 mg PO Q8H 04/07/20 04/07/20 Cholecalciferol [Vitamin D3 (25 1,000 unit PO DAILY 04/07/20 04/07/20 Mcg = 1000 Iu)] Enalapril Maleate [Vasotec] 2.5 mg PO Q12H 04/07/20 04/07/20 HYDROcodone/APAP 5-325MG [[place] 1 tab PO Q4H PRN 04/07/20 04/07/20 5-325] Lactulose [Constulose] 20 gm PO DAILY PRN 04/07/20 04/07/20 Ranolazine [Ranexa] 500 mg PO Q12H 04/07/20 04/07/20 Zinc Gluconate [Zinc] 50 mg PO DAILY 04/07/20 04/07/20 Previous Rx's Medication Instructions Recorded Ondansetron Odt [Zofran Odt] 4 mg PO Q8HR PRN #5 tab 04/07/20 Allergies Allergy/AdvReac Type Severity Reaction Status Date / Time fish oil AdvReac Chest Pain Verified 04/07/20 17:56 promethazine [From Phenergan] AdvReac Hallucinati Verified 04/07/20 17:56 ons Review of Systems ROS Statement: Those systems with pertinent positive or pertinent negative responses have been documented in the HPI. ROS Other: All systems not noted in ROS Statement are negative. Past Medical History Past Medical History: Diabetes Mellitus, Hypertension Additional Past Medical History / Comment(s): CHF. peritoneal port in abdomen. stage 4 kidney failure. History of Any Multi-Drug Resistant Organisms: None Reported Past Surgical History: Coronary Bypass/CABG, Heart Catheterization With Stent Additional Past Surgical History / Comment(s): Port in abdomen. Defibrillator. Hernia Repair - inguinal Past Anesthesia/Blood Transfusion Reactions: No Reported Reaction Date of Last Stent Placement:: 2010 Past Psychological History: No Psychological Hx Reported Smoking Status: Never smoker Past Alcohol Use History: None Reported Past Drug Use History: None Reported General Exam Limitations: no limitations General appearance: alert, in no apparent distress Head exam: Present: atraumatic, normocephalic Eye exam: Present: normal appearance ENT exam: Present: mucous membranes dry Neck exam: Present: normal inspection. Absent: tenderness, meningismus Respiratory exam: Present: normal lung sounds bilaterally. Absent: respiratory distress, wheezes, rales Cardiovascular Exam: Present: regular rate, normal rhythm GI/Abdominal exam: Present: soft, tenderness (Minimal generalized tenderness). Absent: distended, guarding, rebound Extremities exam: Present: normal inspection, normal capillary refill. Absent: pedal edema, calf tenderness Neurological exam: Present: alert Psychiatric exam: Present: normal affect, normal mood Skin exam: Present: warm, dry, intact. Absent: cyanosis, diaphoretic Course Vital Signs 04/07/20 04/07/20 16:57 19:19 Temperature 99.1 F Pulse Rate 77 77 Respiratory 16 18 Rate Blood Pressure 130/85 121/77 O2 Sat by Pulse 99 97 Oximetry Medical Decision Making - Medical Decision Making 55-year-old male presenting with nausea vomiting, dehydration. Patient has end- stage renal disease on peritoneal dialysis. History of pancreatitis. Workup does reveal leukocytosis white blood cell count of 15. This may be secondary to vomiting. He has mildly elevated potassium 5.3 which is states is normal. He has a pancreatitis with history of recent pancreatitis. He states that he feels much better this time that he did with his previous round of pancreatitis [address] is performed which shows a stable dilated pancreatic duct with no other acute findings. No inflammatory change. No intraperitoneal free air. Patient is very eager for discharge. My initial plan was to admit this patient for IV hydration, symptom control. She is feeling much better and does not want to stay. He is very aware of his health conditions and has been given strict return parameters. He will maintain oral hydration with clear liquid diet and he will go slow. He will return the emergency department with any worsening or changing symptoms. - Lab Data Result diagrams: 04/07/20 17:21 04/07/20 17:21 Lab Results 04/07/20 04/07/20 04/07/20 Range/Units 17:21 17:21 17:21 WBC 15.1 H (3.8-10.6) k/uL RBC 4.63 (4.30-5.90) m/uL Hgb 14.5 (13.0-17.5) gm/dL Hct 43.8 (39.0-53.0) % MCV 94.6 (80.0-100.0) fL MCH 31.4 (25.0-35.0) pg MCHC 33.2 (31.0-37.0) g/dL RDW 12.6 (11.5-15.5) % Plt Count 203 (150-450) k/uL MPV 7.9 Neutrophils % 85 % Lymphocytes % 7 % Monocytes % 6 % Eosinophils % 1 % Basophils % 0 % Neutrophils # 12.9 H (1.3-7.7) k/uL Lymphocytes # 1.0 (1.0-4.8) k/uL Monocytes # 1.0 (0-1.0) k/uL Eosinophils # 0.1 (0-0.7) k/uL Basophils # 0.1 (0-0.2) k/uL PT 9.4 (9.0-12.0) sec INR 0.9 (<1.2) APTT 23.0 (22.0-30.0) sec Sodium 135 L (137-145) mmol/L Potassium 5.3 H (3.5-5.1) mmol/L Chloride 104 (98-107) mmol/L Carbon Dioxide 24 (22-30) mmol/L Anion Gap 7 mmol/L BUN 50 H (9-20) mg/dL Creatinine 4.33 H (0.66-1.25) mg/dL Est GFR (CKD-EPI)AfAm 16 (>60 ml/min/1.73 sqM) Est GFR (CKD-EPI)NonAf 14 (>60 ml/min/1.73 sqM) Glucose 200 H (74-99) mg/dL Plasma Lactic Acid Antoni (0.7-2.0) mmol/L Calcium 8.9 (8.4-10.2) mg/dL Magnesium 3.1 H (1.6-2.3) mg/dL Total Bilirubin 1.1 (0.2-1.3) mg/dL AST 77 H (17-59) U/L ALT 39 (4-49) U/L Alkaline Phosphatase 149 H (38-126) U/L Total Protein 6.6 (6.3-8.2) g/dL Albumin 4.0 (3.5-5.0) g/dL Amylase 634 H* (30-110) U/L Lipase 50814 H (23-300) U/L 04/07/20 Range/Units 17:21 WBC (3.8-10.6) k/uL RBC (4.30-5.90) m/uL Hgb (13.0-17.5) gm/dL Hct (39.0-53.0) % MCV (80.0-100.0) fL MCH (25.0-35.0) pg MCHC (31.0-37.0) g/dL RDW (11.5-15.5) % Plt Count (150-450) k/uL MPV Neutrophils % % Lymphocytes % % Monocytes % % Eosinophils % % Basophils % % Neutrophils # (1.3-7.7) k/uL Lymphocytes # (1.0-4.8) k/uL Monocytes # (0-1.0) k/uL Eosinophils # (0-0.7) k/uL Basophils # (0-0.2) k/uL PT (9.0-12.0) sec INR (<1.2) APTT (22.0-30.0) sec Sodium (137-145) mmol/L Potassium (3.5-5.1) mmol/L Chloride (98-107) mmol/L Carbon Dioxide (22-30) mmol/L Anion Gap mmol/L BUN (9-20) mg/dL Creatinine (0.66-1.25) mg/dL Est GFR (CKD-EPI)AfAm (>60 ml/min/1.73 sqM) Est GFR (CKD-EPI)NonAf (>60 ml/min/1.73 sqM) Glucose (74-99) mg/dL Plasma Lactic Acid Antoni 1.2 (0.7-2.0) mmol/L Calcium (8.4-10.2) mg/dL Magnesium (1.6-2.3) mg/dL Total Bilirubin (0.2-1.3) mg/dL AST (17-59) U/L ALT (4-49) U/L Alkaline Phosphatase (38-126) U/L Total Protein (6.3-8.2) g/dL Albumin (3.5-5.0) g/dL Amylase (30-110) U/L Lipase (23-300) U/L Disposition Clinical Impression: Acute pancreatitis, End stage renal disease Disposition: HOME SELF-CARE Condition: Fair Instructions (If sedation given, give patient instructions): Pancreatitis (ED), Dehydration (ED) Prescriptions: Ondansetron Odt [Zofran Odt] 4 mg PO Q8HR PRN #5 tab PRN Reason: Vomiting Is patient prescribed a controlled substance at d/c from ED?: No Referrals: Ellen Mccartney DO [Primary Care Provider] - 1-2 days Time of Disposition: 20:13
[2020-04-07 17:44] LABS: Basophils # (A) 0.1 k/uL (0-0.2); Basophils % (A) 0 %; Eosinophils # (A) 0.1 k/uL (0-0.7); Eosinophils % (A) 1 %; HCT 43.8 % (39.0-53.0); HGB 14.5 gm/dL (13.0-17.5); Lymphocytes % (A) 7 %; MCH 31.4 pg (25.0-35.0); MCHC 33.2 g/dL (31.0-37.0); MCV 94.6 fL (80.0-100.0); Mean Platelet Volume 7.9; Monocytes % (A) 6 %; Neutrophils # (A) 12.9 k/uL (1.3-7.7); Neutrophils % (A) 85 %; Platelet Count 203 k/uL (150-450); RBC 4.63 m/uL (4.30-5.90); RDW 12.6 % (11.5-15.5); WBC 15.1 k/uL (3.8-10.6)
[2020-04-07 17:53] LABS: Calcium 8.9 mg/dL (8.4-10.2); Magnesium 3.1 mg/dL (1.6-2.3); Potassium 5.3 mmol/L (3.5-5.1); Total Bilirubin 1.1 mg/dL (0.2-1.3); Total Protein 6.6 g/dL (6.3-8.2)
[2020-04-07 18:02] LABS: INR 0.9 (<1.2); Prothrombin Time 9.4 sec (9.0-12.0)
[2020-04-07] MEDS ORDERED: SODIUM CHLORIDE 0.9% 1,000 ML IV SCH (19:15)
[2020-04-07 19:21] VITALS: RESP 18
--- NOTE | 2020-04-07 19:55 | CT ---
EXAMINATION TYPE: CT abdomen pelvis wo con DATE OF EXAM: 04/07/2020 COMPARISON: 12/23/2019. HISTORY: Abdominal pain CT DLP: 445.1 mGycm Automated exposure control for dose reduction was used. TECHNIQUE: Helical acquisition of images was performed from the lung bases through the pelvis. FINDINGS: LUNG BASES: No significant abnormality is appreciated. LIVER/GB: No significant abnormality is appreciated. PANCREAS: Stable dilated distal pancreatic duct without obvious mass seen. SPLEEN: No significant abnormality is seen. ADRENALS: No significant abnormality is seen. KIDNEYS: Stable symmetric moderate renal cortical atrophy without acute abnormality. FREE AIR: No free air is visualized RETROPERITONEAL ADENOPATHY: None visualized REPRODUCTIVE ORGANS: No significant abnormality is seen URINARY BLADDER: Mildly distended urinary bladder with small amount of intraluminal air. PELVIC ADENOPATHY: None visualized. OSSEOUS STRUCTURES: No significant abnormality is seen. BOWEL: No significant abnormality is seen. OTHER: Stable left-sided percutaneous catheter with coiling of the distal portion in the pelvis. IMPRESSION: SMALL AMOUNT OF URINARY BLADDER AND, CORRELATE FOR RECENT CATHETERIZATION. OTHERWISE NO ACUTE ABNORMALITY. Chronic findings to include dilated distal pancreatic duct as above.
[2020-04-07 20:27] VITALS: BP 120/67; PULSE 79; TEMP 98.9
== END 2020-04-07 20:27 | disposition home or self-care (01) ==
LOC: EC 16:48
DX: K85.90 Acute pancreatitis without necrosis or infection, unspecified (principal); E10.22 Type 1 diabetes mellitus with diabetic chronic kidney disease; I13.2 Hypertensive heart and chronic kidney disease with heart failure and with stage 5 chronic kidney disease, or end stage renal disease; I50.9 Heart failure, unspecified; N18.6 End stage renal disease; E86.0 Dehydration; D72.829 Elevated white blood cell count, unspecified; Z79.82 Long term (current) use of aspirin; Z79.4 Long term (current) use of insulin; Z96.41 Presence of insulin pump (external) (internal); Z79.899 Other long term (current) drug therapy; Z79.02 Long term (current) use of antithrombotics/antiplatelets; Z91.018 Allergy to other foods; Z88.8 Allergy status to other drugs, medicaments and biological substances; Z99.2 Dependence on renal dialysis
CPT/HCPCS: 80053; 82150; 83605; 83690; 83735; 85025; 85610; 85730; 74176; 99284; 96374; 96361 ×3; J2405

== ENCOUNTER 2021-09-18 17:41 | Observation (INO) | payer MEDICARE, OTHER ==
--- NOTE | 2021-09-18 18:14 | ED ---
Weakness HPI - General Chief complaint: Weakness Stated complaint: Neck tightness,headache Time Seen by Provider: 09/18/21 17:58 Source: patient, RN notes reviewed Mode of arrival: ambulatory Limitations: no limitations - History of Present Illness Initial comments: This is a pleasant 56-year-old diabetic male with a known history of hypertension, heart failure, cardiomyopathy, end-stage kidney failure on peritoneal dialysis. He presents today complaining of fatigue which is going on for about 1 month. Patient states whenever he exerts he gets some tightness in his chest but also his neck and head. He states that when he walks upstairs or tries to do any exertion seems to affect his head and neck for the most part. He states it feels tight. He states that then goes away after. Of rest. Occasionally getting some lightheadedness but no vertigo. No hearing or vision change. No difficulty with speech. No numbness or tingling. No focal weakness. Patient states he saw his client representative about 6 months ago and had a cardiac catheter as well as an echocardiogram. Patient states he feels like he is dehydrated although he is urinating normally. Patient states he had the omicron variant of COVID-19 2 months ago and never quite recovered from it. Patient states he called his client representative on Monday, Dr. Williamson and was told that this did not sound cardiac in nature. Positive fatigue with intermittent headaches, chest tightness and neck tightness. He waited to exertion. no fever or chills, no changes in vision or hearing, no sore throat or difficulty with speech, no neck pain, POSITIVE for shortness of breath with exertion, no edema, no abdominal pain, no nausea or vomiting, no changes in urination or bowel movements, no numbness or tingling, no extremity pain, no skin rashes or lesions. - Related Data Home Medications Medication Instructions Recorded Confirmed Aspirin EC [Ecotrin Low Dose] 81 mg PO DAILY 10/14/19 04/07/20 Clopidogrel [Plavix] 75 mg PO DAILY 10/14/19 04/07/20 Insulin Aspart (For Pump) [NovoLOG 0.01 unit SQ-PUMP CONTINUOUS 10/14/19 (For Pump)] Nitroglycerin Sl Tabs [Nitrostat] 0.4 mg SL Q5M PRN 10/14/19 04/07/20 carvediloL 6.25 mg PO BID 10/14/19 04/07/20 Alirocumab [Praluent Pen] 150 mg SQ Q14D@1900 12/23/19 04/07/20 Cholecalciferol [Vitamin D3 (25 1,000 unit PO DAILY 04/07/20 04/07/20 Mcg = 1000 Iu)] Enalapril Maleate [Vasotec] 2.5 mg PO Q12H 04/07/20 04/07/20 HYDROcodone/APAP 5-325MG [[place] 1 tab PO Q4H PRN 04/07/20 04/07/20 5-325] Lactulose [Constulose] 20 gm PO DAILY PRN 04/07/20 04/07/20 Ranolazine [Ranexa] 500 mg PO Q12H 04/07/20 04/07/20 Zinc Gluconate [Zinc] 50 mg PO DAILY 04/07/20 04/07/20 cephALEXin [Keflex] 500 mg PO Q8H 04/07/20 04/07/20 Previous Rx's Medication Instructions Recorded Ondansetron Odt [Zofran Odt] 4 mg PO Q8HR PRN #5 tab 04/07/20 Allergies Allergy/AdvReac Type Severity Reaction Status Date / Time fish oil AdvReac Chest Pain Verified 09/18/21 17:55 promethazine [From Phenergan] AdvReac Hallucinati Verified 09/18/21 17:55 ons Review of Systems ROS Statement: Those systems with pertinent positive or pertinent negative responses have been documented in the HPI. ROS Other: All systems not noted in ROS Statement are negative. Past Medical History Past Medical History: Heart Failure, Diabetes Mellitus, Hypertension, Renal Disease Additional Past Medical History / Comment(s): CHF. peritoneal port in abdomen. stage 4 kidney failure. History of Any Multi-Drug Resistant Organisms: None Reported Past Surgical History: Coronary Bypass/CABG, Heart Catheterization With Stent Additional Past Surgical History / Comment(s): Port in abdomen. X6. Defibrillator. Hernia Repair - inguinal Past Anesthesia/Blood Transfusion Reactions: No Reported Reaction Date of Last Stent Placement:: 2010 Past Psychological History: No Psychological Hx Reported Smoking Status: Never smoker Past Alcohol Use History: None Reported Past Drug Use History: None Reported General Exam - General Exam Comments Initial Comments: Vital signs reviewed, patient does not appear to be ill or toxic. Patient symptom-free at the time I'm seeing him. Cranial nerves II through XII are grossly intact Limitations: no limitations General appearance: alert, in no apparent distress Head exam: Present: atraumatic, normocephalic, normal inspection Eye exam: Present: normal appearance, PERRL, EOMI. Absent: scleral icterus, conjunctival injection, periorbital swelling ENT exam: Present: normal exam, normal oropharynx, mucous membranes dry, mucous membranes moist, TM's normal bilaterally, normal external ear exam Neck exam: Present: normal inspection, full ROM. Absent: tenderness, meningismus, lymphadenopathy Expanded Neck exam: Absent: tenderness, anterior neck swelling, carotid bruit, tracheal deviation Respiratory exam: Present: normal lung sounds bilaterally. Absent: respiratory distress, wheezes, rales, rhonchi, stridor, chest wall tenderness, accessory muscle use Cardiovascular Exam: Present: regular rate, normal rhythm, systolic murmur (Grade 2/6 systolic murmur heard at the left sternal border). Absent: diastolic murmur, rubs, gallop, clicks GI/Abdominal exam: Present: soft, normal bowel sounds. Absent: distended, tenderness, guarding, rebound, rigid Extremities exam: Present: normal inspection, full ROM, normal capillary refill. Absent: tenderness, pedal edema, joint swelling, calf tenderness Back exam: Present: normal inspection Neurological exam: Present: alert, oriented X3, CN II-XII intact Psychiatric exam: Present: normal affect, normal mood Skin exam: Present: warm, dry, intact, normal color. Absent: rash Course Vital Signs 09/18/21 09/18/21 09/18/21 17:54 18:25 19:31 Temperature 98.6 F 98.1 F Pulse Rate 57 L 58 L 58 L Respiratory 20 18 18 Rate Blood Pressure 146/84 135/81 135/80 O2 Sat by Pulse 99 99 99 Oximetry - Reevaluation(s) Reevaluation #1: 09/18/21 20:15 Medical record is reviewed Patient remains pain-free here in the emergency department. Patient is informed of results and questions answered Patient in no distress - Consultations Consultation #1: Case discussed with the on-call physician. Physician group. Subsequent admission of the patient for observation. Patient will be heparinized. Patient is already on a beta benjamin. EKG Findings - EKG Comments: EKG Findings:: EKG done at 1759 and reviewed by the ED attending physician as well reveals sinus rhythm with a first-degree AV block, ventricular rate of 61, left axis deviation, left bundle branch block. When necessary O2 121 ms. QRS duration 167 ms. QTC 491 ms. When compared to the previous study from 10/14/2019 there is no significant change. Left bundle-branch block seen at that time as well. Medical Decision Making - Medical Decision Making Patient's symptomology consistent with unstable angina as this is related to exertion. However the symptoms are quite strange with chest tightness and even to a more severe stent neck tightness and head tightness which seems to resolve with rest. This is happened several times over the last month. Note that the patient also had COVID-19 2 months ago. Certainly long-haul Covid syndrome is within the differential. Patient asymptomatic at the time I'm seeing him however he exerted earlier this afternoon and had the symptoms. Patient states they resolve with rest. Patient likely requires admission. Noted this patient's client representative was sent to [facility], Dr. Williamson. Patient had echocardiogram done as well as cardiac catheter done in November. According to the patient his ejection fraction is 20-25%. Patient has previous four-vessel bypass done in 2006. Interventional cardiac stenting done in 2013. The case was discussed in detail with ED attending physician. Presentation, findings, treatment plan discussed in detail. Supervising physician is Dr. Flores - Lab Data Result diagrams: 09/18/21 18:22 09/18/21 18:22 Lab Results 09/18/21 09/18/21 09/18/21 Range/Units 18:22 18:22 18:22 WBC 4.6 (3.8-10.6) k/uL RBC 3.78 L (4.30-5.90) m/uL Hgb 11.7 L (13.0-17.5) gm/dL Hct 36.3 L (39.0-53.0) % MCV 96.0 (80.0-100.0) fL MCH 30.9 (25.0-35.0) pg MCHC 32.1 (31.0-37.0) g/dL RDW 14.6 (11.5-15.5) % Plt Count 191 (150-450) k/uL MPV 9.2 Neutrophils % 52 % Lymphocytes % 32 % Monocytes % 7 % Eosinophils % 5 % Basophils % 1 % Neutrophils # 2.4 (1.3-7.7) k/uL Lymphocytes # 1.5 (1.0-4.8) k/uL Monocytes # 0.3 (0-1.0) k/uL Eosinophils # 0.2 (0-0.7) k/uL Basophils # 0.0 (0-0.2) k/uL PT 10.8 (9.0-12.0) sec INR 1.0 (<1.2) APTT 26.2 (22.0-30.0) sec Sodium 134 L (137-145) mmol/L Potassium 4.7 (3.5-5.1) mmol/L Chloride 103 (98-107) mmol/L Carbon Dioxide 25 (22-30) mmol/L Anion Gap 6 mmol/L BUN 53 H (9-20) mg/dL Creatinine 4.62 H (0.66-1.25) mg/dL Est GFR (CKD-EPI)AfAm 15 (>60 ml/min/1.73 sqM) Est GFR (CKD-EPI)NonAf 13 (>60 ml/min/1.73 sqM) Glucose 66 L (74-99) mg/dL POC Glucose (mg/dL) (75-99) mg/dL POC Glu Sign Language Teacher ID Calcium 7.8 L (8.4-10.2) mg/dL Magnesium 2.4 H (1.6-2.3) mg/dL Total Bilirubin 0.5 (0.2-1.3) mg/dL AST 36 (17-59) U/L ALT 57 H (4-49) U/L Alkaline Phosphatase 73 (38-126) U/L Troponin I (0.000-0.034) ng/mL NT-Pro-B Natriuret Pep pg/mL Total Protein 5.6 L (6.3-8.2) g/dL Albumin 3.2 L (3.5-5.0) g/dL Heterophile Antibody (Negative) 09/18/21 09/18/21 09/18/21 Range/Units 18:22 18:22 18:22 WBC (3.8-10.6) k/uL RBC (4.30-5.90) m/uL Hgb (13.0-17.5) gm/dL Hct (39.0-53.0) % MCV (80.0-100.0) fL MCH (25.0-35.0) pg MCHC (31.0-37.0) g/dL RDW (11.5-15.5) % Plt Count (150-450) k/uL MPV Neutrophils % % Lymphocytes % % Monocytes % % Eosinophils % % Basophils % % Neutrophils # (1.3-7.7) k/uL Lymphocytes # (1.0-4.8) k/uL Monocytes # (0-1.0) k/uL Eosinophils # (0-0.7) k/uL Basophils # (0-0.2) k/uL PT (9.0-12.0) sec INR (<1.2) APTT (22.0-30.0) sec Sodium (137-145) mmol/L Potassium (3.5-5.1) mmol/L Chloride (98-107) mmol/L Carbon Dioxide (22-30) mmol/L Anion Gap mmol/L BUN (9-20) mg/dL Creatinine (0.66-1.25) mg/dL Est GFR (CKD-EPI)AfAm (>60 ml/min/1.73 sqM) Est GFR (CKD-EPI)NonAf (>60 ml/min/1.73 sqM) Glucose (74-99) mg/dL POC Glucose (mg/dL) (75-99) mg/dL POC Glu Sign Language Teacher ID Calcium (8.4-10.2) mg/dL Magnesium (1.6-2.3) mg/dL Total Bilirubin (0.2-1.3) mg/dL AST (17-59) U/L ALT (4-49) U/L Alkaline Phosphatase (38-126) U/L Troponin I 0.019 (0.000-0.034) ng/mL NT-Pro-B Natriuret Pep 91424 pg/mL Total Protein (6.3-8.2) g/dL Albumin (3.5-5.0) g/dL Heterophile Antibody Negative (Negative) 09/18/21 Range/Units 19:28 WBC (3.8-10.6) k/uL RBC (4.30-5.90) m/uL Hgb (13.0-17.5) gm/dL Hct (39.0-53.0) % MCV (80.0-100.0) fL MCH (25.0-35.0) pg MCHC (31.0-37.0) g/dL RDW (11.5-15.5) % Plt Count (150-450) k/uL MPV Neutrophils % % Lymphocytes % % Monocytes % % Eosinophils % % Basophils % % Neutrophils # (1.3-7.7) k/uL Lymphocytes # (1.0-4.8) k/uL Monocytes # (0-1.0) k/uL Eosinophils # (0-0.7) k/uL Basophils # (0-0.2) k/uL PT (9.0-12.0) sec INR (<1.2) APTT (22.0-30.0) sec Sodium (137-145) mmol/L Potassium (3.5-5.1) mmol/L Chloride (98-107) mmol/L Carbon Dioxide (22-30) mmol/L Anion Gap mmol/L BUN (9-20) mg/dL Creatinine (0.66-1.25) mg/dL Est GFR (CKD-EPI)AfAm (>60 ml/min/1.73 sqM) Est GFR (CKD-EPI)NonAf (>60 ml/min/1.73 sqM) Glucose (74-99) mg/dL POC Glucose (mg/dL) 77 (75-99) mg/dL POC Glu Sign Language Teacher Helene Hand T Calcium (8.4-10.2) mg/dL Magnesium (1.6-2.3) mg/dL Total Bilirubin (0.2-1.3) mg/dL AST (17-59) U/L ALT (4-49) U/L Alkaline Phosphatase (38-126) U/L Troponin I (0.000-0.034) ng/mL NT-Pro-B Natriuret Pep pg/mL Total Protein (6.3-8.2) g/dL Albumin (3.5-5.0) g/dL Heterophile Antibody (Negative) Disposition Clinical Impression: Unstable angina, Hypoglycemia, Chronic renal failure Narrative: Chronic renal failure on hemodialysis Disposition: ADMITTED IP TO THIS HOSP Condition: Fair Is patient prescribed a controlled substance at d/c from ED?: No Referrals: Nonstaff,Physician [Primary Care Provider] - 1-2 days Time of Disposition: 19:15 Decision to Admit Reason: Admit from EC
[2021-09-18] MEDS ORDERED: ASPIRIN 81 MG PO STA (18:24)
[2021-09-18 18:28] VITALS: RESP 18; TEMP 98.1
[2021-09-18 18:41] LABS: Basophils % (A) 1 %; Eosinophils # (A) 0.2 k/uL (0-0.7); Eosinophils % (A) 5 %; HCT 36.3 % (39.0-53.0); HGB 11.7 gm/dL (13.0-17.5); Lymphocytes # (A) 1.5 k/uL (1.0-4.8); Lymphocytes % (A) 32 %; MCH 30.9 pg (25.0-35.0); MCHC 32.1 g/dL (31.0-37.0); Mean Platelet Volume 9.2; Monocytes # (A) 0.3 k/uL (0-1.0); Monocytes % (A) 7 %; Neutrophils # (A) 2.4 k/uL (1.3-7.7); Neutrophils % (A) 52 %; Platelet Count 191 k/uL (150-450); RBC 3.78 m/uL (4.30-5.90); RDW 14.6 % (11.5-15.5); WBC 4.6 k/uL (3.8-10.6)
[2021-09-18 18:55] LABS: Albumin 3.2 g/dL (3.5-5.0); Calcium 7.8 mg/dL (8.4-10.2); Magnesium 2.4 mg/dL (1.6-2.3); Potassium 4.7 mmol/L (3.5-5.1); Total Bilirubin 0.5 mg/dL (0.2-1.3); Total Protein 5.6 g/dL (6.3-8.2)
[2021-09-18 19:03] LABS: Partial Thromboplastin Time 26.2 sec (22.0-30.0); Prothrombin Time 10.8 sec (9.0-12.0)
--- NOTE | 2021-09-18 19:18 | XR ---
EXAMINATION TYPE: XR chest 2V DATE OF EXAM: 09/18/2021 COMPARISON: 12/25/2019 HISTORY: Chest pain TECHNIQUE: FINDINGS: Heart appears enlarged. No heart failure seen. There is right axillary pacemaker. There is minimal pleural reaction at the lung bases. There are no hilar masses. There are sternal wires. There are chest leads. IMPRESSION: Minimal pleural reaction at the lung bases without change. Mild cardiomegaly.
[2021-09-18 19:30] LABS: Glucose,Whole Blood 77 mg/dL (75-99)
[2021-09-18] MEDS ORDERED: ACETAMINOPHEN TAB 325 MG TAB PO PRN (20:06)
[2021-09-18] MEDS ORDERED: NITROGLYCERIN SL TABS 0.4 MG TAB SUBLINGUAL PRN (20:06)
[2021-09-18] MEDS ORDERED: HEPARIN SODIUM 1,000 UN/ML (10ML VL) IV ONE (20:06)
[2021-09-18] MEDS ORDERED: carvediloL 6.25 MG TAB PO SCH (20:15)
[2021-09-18] MEDS ORDERED: HEPARIN SOD,PORK IN 0.45% NACL 25,000 UNIT in 0.45% NACL 1 250ML.BAG IV SCH (20:15)
[2021-09-18 21:35] VITALS: BP 161/103; PULSE 60
[2021-09-19] MEDS ORDERED: DIALYSIS (PERIT 1.5%) 2,000 ML 30 G/2,000 ML BAG INTRAPERIT SCH ×2
[2021-09-19] MEDS ORDERED: CLOPIDOGREL 75 MG TAB PO SCH (09:00)
[2021-09-19] MEDS ORDERED: ASPIRIN 325 MG TAB PO SCH (09:00)
--- NOTE | 2021-09-20 19:48 | P.HPIM ---
Past Medical History Past Medical History: Heart Failure, Diabetes Mellitus, Hypertension, Renal Disease Additional Past Medical History / Comment(s): CHF. peritoneal port in abdomen. stage 4 kidney failure. History of Any Multi-Drug Resistant Organisms: None Reported Past Surgical History: Coronary Bypass/CABG, Heart Catheterization With Stent Additional Past Surgical History / Comment(s): Port in abdomen. X6. Defibrillator. Hernia Repair - inguinal Past Anesthesia/Blood Transfusion Reactions: No Reported Reaction Date of Last Stent Placement:: 2010 Past Psychological History: No Psychological Hx Reported Smoking Status: Never smoker Past Alcohol Use History: None Reported Past Drug Use History: None Reported Medications and Allergies Home Medications Medication Instructions Recorded Confirmed Type Aspirin EC [Ecotrin Low Dose] 81 mg PO DAILY 10/14/19 09/18/21 History Clopidogrel [Plavix] 75 mg PO DAILY 10/14/19 09/18/21 History Insulin Aspart (For Pump) [NovoLOG 0.01 unit SQ-PUMP CONTINUOUS 10/14/19 09/18/21 History (For Pump)] Nitroglycerin Sl Tabs [Nitrostat] 0.4 mg SL Q5M PRN 10/14/19 09/18/21 History carvediloL 12.5 mg PO BID 10/14/19 09/18/21 History Alirocumab [Praluent Pen] 150 mg SQ Q14D 12/23/19 09/18/21 History Cholecalciferol [Vitamin D3 (25 25 mcg PO DAILY 04/07/20 09/18/21 History Mcg = 1000 Iu)] Lactulose [Constulose] 20 gm PO DAILY PRN 04/07/20 09/18/21 History Zinc Gluconate [Zinc] 50 mg PO DAILY 04/07/20 09/18/21 History Enalapril [Vasotec] 5 mg PO BID 09/18/21 09/18/21 History Insulin Degludec [Tresiba 1 dose SQ DAILY PRN 09/18/21 09/18/21 History Flextouch U-100 Pen] Sodium Zirconium Cyclosilicate 10 gm PO DAILY PRN 09/18/21 09/18/21 History [Lokelma] Thyroid,Pork [Neurodiagnostic Tech Thyroid] 60 mg PO DAILY 09/18/21 09/18/21 History Allergies Allergy/AdvReac Type Severity Reaction Status Date / Time fish oil AdvReac Chest Pain Verified 09/18/21 20:52 omega-3 acid ethyl esters AdvReac Chest Pain Verified 09/18/21 20:52 [From Lovaza] promethazine [From Phenergan] AdvReac Hallucinati Verified 09/18/21 20:52 ons Results CBC & Chem 7: 09/18/21 18:22 09/18/21 18:22 Assessment and Plan Assessment: patient did not want admission, and decided to leave [place]
== END 2021-09-18 23:07 | disposition left against medical advice (07) ==
LOC: EC 17:41 → 6NMEDSUR 19:22
PROVIDERS: ADMIT Internal Medicine; ATTEND Internal Medicine
DX: I25.110 Atherosclerotic heart disease of native coronary artery with unstable angina pectoris (principal); E11.649 Type 2 diabetes mellitus with hypoglycemia without coma; I13.2 Hypertensive heart and chronic kidney disease with heart failure and with stage 5 chronic kidney disease, or end stage renal disease; N18.6 End stage renal disease; E11.22 Type 2 diabetes mellitus with diabetic chronic kidney disease; I50.9 Heart failure, unspecified; I42.9 Cardiomyopathy, unspecified; I44.0 Atrioventricular block, first degree; I44.7 Left bundle-branch block, unspecified; R51.9 Headache, unspecified; R42 Dizziness and giddiness; Z86.16 Personal history of COVID-19; Z79.82 Long term (current) use of aspirin; Z79.02 Long term (current) use of antithrombotics/antiplatelets; Z79.4 Long term (current) use of insulin; Z79.899 Other long term (current) drug therapy; Z88.8 Allergy status to other drugs, medicaments and biological substances; Z95.1 Presence of aortocoronary bypass graft; Z99.2 Dependence on renal dialysis; Z96.41 Presence of insulin pump (external) (internal); Z95.5 Presence of coronary angioplasty implant and graft; Z95.810 Presence of automatic (implantable) cardiac defibrillator; Z53.29 Procedure and treatment not carried out because of patient's decision for other reasons
CPT/HCPCS: 99285; 36415; 93005; 83880; 80053; 83735; 84484; 85025; 85610; 85730; 86308; 71046; G0378

== ENCOUNTER 2022-03-20 10:02 | Emergency (ER) | payer MEDICARE, OTHER ==
[2022-03-20 10:14] VITALS: BP 117/72; PULSE 60; RESP 18; TEMP 97.5
[2022-03-20] MEDS ORDERED: FLUORESCEIN STRIPS 1 MG STRIP BOTH EYES ONE (10:18)
[2022-03-20] MEDS ORDERED: PROPARACAINE 0.5% OPHTH DROPS 15 ML BTL BOTH EYES STA (10:18)
--- NOTE | 2022-03-20 10:39 | ED ---
General Adult HPI - General Chief complaint: Eye Problems Stated complaint: Right eye Pain Time Seen by Provider: 03/20/22 10:15 Source: patient Mode of arrival: ambulatory Limitations: no limitations - History of Present Illness Initial comments: Dictation was produced using Supramed dictation software. please excuse any grammatical, word or spelling errors. Chief Complaint: 57-year-old male presents emergency Department with painful right eye History of Present Illness: Patient is a 49-year-old male presents to the emergency Department with painful right eye. Patient states that he has history of subconjunctival hemorrhage on the right eye in the past. Patient states this morning he woke up felt a little burning sensation behind his right eye. He went and looked in the mirror and noticed that he was having what appeared to be some bleeding or bruising to the whites of his right eye. He has had an issue like this in the past. He seen a specialist for admission and was told that he just needs some time to recover. Patient has multiple comorbidities including end-stage renal disease, heart failure and diabetes mellitus. Patient has any vision changes. Does complain of some very mild burning sensation to the back of his right eye. The ROS documented in this emergency department record has been reviewed and c onfirmed by me. Those systems with pertinent positive or negative responses have been documented in the HPI. All other systems are other negative and/or noncontributory. PHYSICAL EXAM: General Impression: Alert and oriented x3, not in acute distress HEENT: Normocephalic atraumatic, extra-ocular movements intact, pupils equal and reactive to light bilaterally, mucous membranes moist. Cardiovascular: Heart regular rate and rhythm Chest: Able to complete full sentences, no retractions, no tachypnea Musculoskeletal: no peripheral edema Motor: no focal deficits noted Neurological: CN II-XII grossly intact, no focal motor or sensory deficits noted Skin: Intact with no visualized rashes Psych: Normal affect and mood Ocular: Subconjunctival hemorrhage to the left and right conjunctiva and inf erior conjunctiva, irises equal round, no hyphema. Fluorescein testing of the right eye shows no corneal defects or abnormalities. Intraocular pressure to the right eye is normal. ED course: 57-year-old male presents to the emergency department click or presentation consistent with subconjunctival hemorrhage. His case is rather severe. Vital Signs upon arrival are within acceptable limits. Vision testing shows left eye 20/100, right eye 20/40, both 20/50 Case discussed with ophthalmology, Dr. Cavazos recommends seeing the patient in the office tomorrow for further evaluation. Ophthalmology request antibiotic eyedrops. Patient agreeable with plan to see ophthalmology tomorrow. - Related Data Home Medications Medication Instructions Recorded Confirmed Aspirin EC [Ecotrin Low Dose] 81 mg PO DAILY 10/14/19 09/18/21 Clopidogrel [Plavix] 75 mg PO DAILY 10/14/19 09/18/21 Insulin Aspart (For Pump) [NovoLOG 0.01 unit SQ-PUMP CONTINUOUS 10/14/19 09/18/21 (For Pump)] Nitroglycerin Sl Tabs [Nitrostat] 0.4 mg SL Q5M PRN 10/14/19 09/18/21 carvediloL 12.5 mg PO BID 10/14/19 09/18/21 Alirocumab [Praluent Pen] 150 mg SQ Q14D 12/23/19 09/18/21 Cholecalciferol [Vitamin D3 (25 25 mcg PO DAILY 04/07/20 09/18/21 Mcg = 1000 Iu)] Lactulose [Constulose] 20 gm PO DAILY PRN 04/07/20 09/18/21 Zinc Gluconate [Zinc] 50 mg PO DAILY 04/07/20 09/18/21 Enalapril [Vasotec] 5 mg PO BID 09/18/21 09/18/21 Insulin Degludec [Tresiba 1 dose SQ DAILY PRN 09/18/21 09/18/21 Flextouch U-100 Pen] Sodium Zirconium Cyclosilicate 10 gm PO DAILY PRN 09/18/21 09/18/21 [Lokelma] Thyroid,Pork [Poll Watcher Thyroid] 60 mg PO DAILY 09/18/21 09/18/21 Previous Rx's Medication Instructions Recorded Moxifloxacin [Vigamox 0.5%] 1 drop RIGHT EYE TID #3 ml 03/20/22 Allergies Allergy/AdvReac Type Severity Reaction Status Date / Time fish oil AdvReac Chest Pain Verified 03/20/22 10:14 omega-3 acid ethyl esters AdvReac Chest Pain Verified 03/20/22 10:14 [From Lovaza] promethazine [From Phenergan] AdvReac Hallucinati Verified 03/20/22 10:14 ons Review of Systems ROS Statement: Those systems with pertinent positive or pertinent negative responses have been documented in the HPI. ROS Other: All systems not noted in ROS Statement are negative. Past Medical History Past Medical History: Heart Failure, Diabetes Mellitus, Hypertension, Renal Disease Additional Past Medical History / Comment(s): CHF. peritoneal port in abdomen. stage 4 kidney failure. History of Any Multi-Drug Resistant Organisms: None Reported Past Surgical History: Coronary Bypass/CABG, Heart Catheterization With Stent Additional Past Surgical History / Comment(s): Port in abdomen. X6. Defibrillator. Hernia Repair - inguinal Past Anesthesia/Blood Transfusion Reactions: No Reported Reaction Date of Last Stent Placement:: 2010 Past Psychological History: No Psychological Hx Reported Smoking Status: Never smoker Past Alcohol Use History: None Reported Past Drug Use History: None Reported General Exam Limitations: no limitations Course Vital Signs 03/20/22 10:11 Temperature 97.5 F L Pulse Rate 60 Respiratory 18 Rate Blood Pressure 117/72 O2 Sat by Pulse 100 Oximetry Disposition Clinical Impression: Subconjunctival bleed Disposition: HOME SELF-CARE Condition: Fair Instructions (If sedation given, give patient instructions): Subconjunctival Hemorrhage (ED) Additional Instructions: Call and make an appointment with ophthalmology. Ophthalmology is expecting to see her in the office tomorrow 03/20/2022 Prescriptions: Moxifloxacin [Vigamox 0.5%] 1 drop RIGHT EYE TID #3 ml Is patient prescribed a controlled substance at d/c from ED?: No Referrals: Ho Cavazos MD [STAFF PHYSICIAN] - 1-2 days Time of Disposition: 10:47
== END 2022-03-20 10:53 | disposition home or self-care (01) ==
LOC: EC 10:02
DX: H11.31 Conjunctival hemorrhage, right eye (principal); I13.0 Hypertensive heart and chronic kidney disease with heart failure and stage 1 through stage 4 chronic kidney disease, or unspecified chronic kidney disease; I50.9 Heart failure, unspecified; N18.4 Chronic kidney disease, stage 4 (severe); Z79.82 Long term (current) use of aspirin; Z79.4 Long term (current) use of insulin; Z79.899 Other long term (current) drug therapy; Z91.013 Allergy to seafood; Z88.8 Allergy status to other drugs, medicaments and biological substances
CPT/HCPCS: 99283

== ENCOUNTER 2022-06-15 03:48 | Emergency (ER) | payer MEDICARE, OTHER ==
[2022-06-15 03:57] VITALS: BP 151/90; PULSE 63; RESP 16; TEMP 97.7
[2022-06-15] MEDS ORDERED: KETOROLAC 15 MG/ML 1 ML VIAL IVP STA (04:06)
[2022-06-15] MEDS ORDERED: ONDANSETRON 4 MG/2 ML VIAL IVP STA (04:06)
[2022-06-15] MEDS ORDERED: SODIUM CHLORIDE 0.9% 1,000 ML IV ONE (04:06)
--- NOTE | 2022-06-15 04:09 | ED ---
General Adult HPI - General Chief complaint: Urogenital Stated complaint: Kidney Stone Time Seen by Provider: 06/15/22 03:58 Source: patient Mode of arrival: ambulatory Limitations: no limitations - History of Present Illness Initial comments: This is a 57-year-old male with an extensive past medical history including hypertension, type 1 diabetes, end-stage renal disease on peritoneal dialysis presents emergency department for left flank pain. The patient stated that this pain began at midnight and started to radiate to his groin. The patient has a medical history including previous kidney stones and he stated that it felt as if he had a kidney stone once again. The patient stated that the pain was persistent since midnight and has not stopped. The patient denied any current nausea but stated that the pain was becoming severe enough that he could not sit still secondary to the discomfort. The patient denied any other acute pain or complaints at this time. The patient denied any current nausea, vomiting, fevers and chills. - Related Data Home Medications Medication Instructions Recorded Confirmed Aspirin EC [Ecotrin Low Dose] 81 mg PO DAILY 10/14/19 09/18/21 Clopidogrel [Plavix] 75 mg PO DAILY 10/14/19 09/18/21 Insulin Aspart (For Pump) [NovoLOG 0.01 unit SQ-PUMP CONTINUOUS 10/14/1909/18 (For Pump)] Nitroglycerin Sl Tabs [Nitrostat] 0.4 mg SL Q5M PRN 10/14/19 09/18/21 carvediloL 12.5 mg PO BID 10/14/19 09/18/21 Alirocumab [Praluent Pen] 150 mg SQ Q14D 12/23/19 09/18/21 Cholecalciferol [Vitamin D3 (25 25 mcg PO DAILY 04/07/20 09/18/21 Mcg = 1000 Iu)] Lactulose [Constulose] 20 gm PO DAILY PRN 04/07/20 09/18/21 Zinc Gluconate [Zinc] 50 mg PO DAILY 04/07/20 09/18/21 Enalapril [Vasotec] 5 mg PO BID 09/18/21 09/18/21 Insulin Degludec [Tresiba 1 dose SQ DAILY PRN 09/18/21 09/18/21 Flextouch U-100 Pen] Sodium Zirconium Cyclosilicate 10 gm PO DAILY PRN 09/18/21 09/18/21 [Lokelma] Thyroid,Pork [Lamp Cleaner Street Light Thyroid] 60 mg PO DAILY 09/18/21 09/18/21 Previous Rx's Medication Instructions Recorded Moxifloxacin [Vigamox 0.5%] 1 drop RIGHT EYE TID #3 ml 03/20/22 HYDROcodone/APAP 5-325MG [[place] 1 tab PO Q6HR PRN 3 Days #12 tab 06/15/22 5-325] Ketorolac [Toradol] 10 mg PO Q6HR #30 tab 06/15/22 Ondansetron Odt [Zofran Odt] 4 mg PO Q8HR PRN #20 tab 06/15/22 Tamsulosin [Flomax] 0.4 mg PO DAILY #14 cap 06/15/22 Allergies Allergy/AdvReac Type Severity Reaction Status Date / Time fish oil AdvReac Chest Pain Verified 06/15/22 03:55 omega-3 acid ethyl esters AdvReac Chest Pain Verified 06/15/22 03:55 [From Lovaza] promethazine [From Phenergan] AdvReac Hallucinati Verified 06/15/22 03:55 ons Review of Systems ROS Statement: Those systems with pertinent positive or pertinent negative responses have been documented in the HPI. ROS Other: All systems not noted in ROS Statement are negative. Past Medical History Past Medical History: Heart Failure, Diabetes Mellitus, Hypertension, Renal Disease Additional Past Medical History / Comment(s): CHF. peritoneal port in abdomen. stage 4 kidney failure. History of Any Multi-Drug Resistant Organisms: None Reported Past Surgical History: Coronary Bypass/CABG, Heart Catheterization With Stent Additional Past Surgical History / Comment(s): Port in abdomen. X6. Defibrillator. Hernia Repair - inguinal Past Anesthesia/Blood Transfusion Reactions: No Reported Reaction Date of Last Stent Placement:: 2010 Past Psychological History: No Psychological Hx Reported Smoking Status: Never smoker Past Alcohol Use History: None Reported Past Drug Use History: None Reported General Exam Limitations: no limitations General appearance: alert, in distress (In moderate distress secondary to left flank pain) Head exam: Present: atraumatic, normocephalic, normal inspection Eye exam: Present: normal appearance, PERRL Pupils: Present: normal accommodation ENT exam: Present: normal exam, normal oropharynx, mucous membranes moist Neck exam: Present: normal inspection, full ROM Respiratory exam: Present: normal lung sounds bilaterally Cardiovascular Exam: Present: regular rate, normal rhythm, normal heart sounds GI/Abdominal exam: Present: soft, normal bowel sounds Extremities exam: Present: normal inspection, full ROM Back exam: Present: normal inspection, full ROM Neurological exam: Present: alert, oriented X3, CN II-XII intact Psychiatric exam: Present: normal affect, normal mood Skin exam: Present: warm, dry Course Vital Signs 06/15/22 03:55 Temperature 97.7 F Pulse Rate 63 Respiratory 16 Rate Blood Pressure 151/90 O2 Sat by Pulse 100 Oximetry Medical Decision Making - Medical Decision Making Was pt. sent in by a medical professional or institution (, PA, THERAPY TEACHER, urgent care, hospital, or residential...) When possible be specific @ -No Did you speak to anyone other than the patient for history (EMS, parent, family, police, friend...)? What history was obtained from this source @ -No Did you review nursing and triage notes (agree or disagree)? Why? @ -I reviewed and agree with nursing and triage notes Were old charts reviewed (outside hosp., previous admission, EMS record, old EKG, old radiological studies, urgent care reports/EKG's, residential records)? Report findings @ -No old charts were reviewed Differential Diagnosis (chest pain, altered mental status, abdominal pain women, abdominal pain men, vaginal bleeding, weakness, fever, dyspnea, syncope, hea dache, dizziness, GI bleed, back pain, seizure, CVA, palpatations, mental health)? @ -Kidney stone, UTI, pyelonephritis EKG interpreted by me (3pts min.). @ -None X-rays interpreted by me (1pt min.). @ -None done CT interpreted by me (1pt min.). @ -CT abdomen and pelvis without contrast was obtained and was interpreted by myself showing left-sided hydronephrosis and hydroureter that appears new with a small stone a 3 mm on the left side of the distal left ureter. U/S interpreted by me (1pt. min.). @ -None done What testing was considered but not performed or refused? (CT, X-rays, U/S, labs)? Why? @ -None What meds were considered but not given or refused? Why? @ -None Did you discuss the management of the patient with other professionals (professionals i.e. , PA, THERAPY TEACHER, lab, RT, psych nurse, social media job titles, mine utility operator, teacher, geospatial program management officer, nurse case management)? Give summary @ -No Was smoking cessation discussed for >3mins.? @ -No Was critical care preformed (if so, how long)? @ -No Were there social determinants of health that impacted care today? How? (Homelessness, low income, unemployed, alcoholism, drug addiction, transportation, low edu. Level, literacy, decrease access to med. care, fpc, rehab)? @ -No Was there de-escalation of care discussed even if they declined (Discuss DNR or withdrawal of care, Hospice)? DNR status @ -No What co-morbidities impacted this encounter? (DM, HTN, Smoking, COPD, CAD, Cancer, CVA, ARF, Chemo, Hep., AIDS, mental health diagnosis, sleep apnea, morbid obesity)? @ -None Was patient admitted / discharged? Hospital course, mention meds given and route, prescriptions, significant lab abnormalities, going to OR and other pertinent info. @ -The patient was seen and evaluated in the emergency department. Physical exam, the patient was resting in bed without any acute distress. The patient was walking around the emergency department room as he had continued discomfort in the left flank. Laboratory workup showed urinary results showing concern for kidney stone. Computed tomography scan confirm this. The patient was given Toradol as well as Zofran at complete resolution of his pain. The patient was stable for discharge home and was given medications to be taken at home including Toradol, [place], Zofran and Flomax. The patient was also given follow- up instructions to urology if needed. The patient was advised report back to the emergency department if his pain became acutely worse. The patient was agreeable to this and all his questions were answered. The patient was discharged home in stable condition. Undiagnosed new problem with uncertain prognosis? @ -No Drug Therapy requiring intensive monitoring for toxicity (Heparin, Nitro, Insulin, Cardizem)? @ -No Were any procedures done? @ -No Diagnosis/symptom? @ -Kidney stone Acute, or Chronic, or Acute on Chronic? @ -Acute Uncomplicated (without systemic symptoms) or Complicated (systemic symptoms)? @ -Uncomplicated Side effects of treatment? @ -No Exacerbation, Progression, or Severe Exacerbation? @ -No Poses a threat to life or bodily function? How? (Chest pain, [place], [place], pneumonia, PE, COPD, DKA, ARF, appy, cholecystitis, CVA, Diverticulitis, Homicidal, Suicidal, threat to staff... and all critical care pts) @ -No - Lab Data Result diagrams: 06/15/22 04:13 06/15/22 04:13 Lab Results 06/15/22 06/15/22 06/15/22 Range/Units 04:13 04:13 04:13 WBC 6.4 (3.8-10.6) k/uL RBC 3.95 L (4.30-5.90) m/uL Hgb 12.1 L (13.0-17.5) gm/dL Hct 37.2 L (39.0-53.0) % MCV 94.2 (80.0-100.0) fL MCH 30.7 (25.0-35.0) pg MCHC 32.6 (31.0-37.0) g/dL RDW 14.2 (11.5-15.5) % Plt Count 150 (150-450) k/uL MPV 8.9 Neutrophils % 68 % Lymphocytes % 19 % Monocytes % 6 % Eosinophils % 4 % Basophils % 1 % Neutrophils # 4.4 (1.3-7.7) k/uL Lymphocytes # 1.2 (1.0-4.8) k/uL Monocytes # 0.4 (0-1.0) k/uL Eosinophils # 0.2 (0-0.7) k/uL Basophils # 0.1 (0-0.2) k/uL Sodium 139 (137-145) mmol/L Potassium 5.2 H (3.5-5.1) mmol/L Chloride 108 H (98-107) mmol/L Carbon Dioxide 22 (22-30) mmol/L Anion Gap 9 mmol/L BUN 60 H (9-20) mg/dL Creatinine 4.83 H (0.66-1.25) mg/dL Est GFR (CKD-EPI)AfAm 14 (>60 ml/min/1.73 sqM) Est GFR (CKD-EPI)NonAf 12 (>60 ml/min/1.73 sqM) Glucose 55 L (74-99) mg/dL Calcium 7.8 L (8.4-10.2) mg/dL Magnesium 2.3 (1.6-2.3) mg/dL Total Bilirubin 0.6 (0.2-1.3) mg/dL AST 36 (17-59) U/L ALT 49 (4-49) U/L Alkaline Phosphatase 97 (38-126) U/L Total Protein 6.1 L (6.3-8.2) g/dL Albumin 3.9 (3.5-5.0) g/dL Urine Color Light Yellow Urine Appearance Clear (Clear) Urine pH 5.5 (5.0-8.0) Ur Specific [place] 1.009 (1.001-1.035) Urine Protein 1+ H (Negative) Urine Glucose (UA) Negative (Negative) Urine Ketones Negative (Negative) Urine Blood Large H (Negative) Urine Nitrite Negative (Negative) Urine Bilirubin Negative (Negative) Urine Urobilinogen <2.0 (<2.0) mg/dL Ur Leukocyte Esterase Negative (Negative) Urine RBC >182 H (0-5) /hpf Urine WBC 5 (0-5) /hpf Ur Squamous Epith Cells <1 (0-4) /hpf Urine Bacteria Rare H (None) /hpf Urine Mucus Rare H (None) /hpf Disposition Clinical Impression: Kidney stone Disposition: HOME SELF-CARE Condition: Stable Instructions (If sedation given, give patient instructions): Kidney Stones (ED) Prescriptions: Tamsulosin [Flomax] 0.4 mg PO DAILY #14 cap HYDROcodone/APAP 5-325MG [[place] 5-325] 1 tab PO Q6HR PRN 3 Days #12 tab PRN Reason: Pain Ketorolac [Toradol] 10 mg PO Q6HR #30 tab Ondansetron Odt [Zofran Odt] 4 mg PO Q8HR PRN #20 tab PRN Reason: Nausea Is patient prescribed a controlled substance at d/c from ED?: Yes When asked, does pt state using other controlled substances?: No If prescribed controlled substance>3 days was MAPS reviewed?: Prescribed <3 Days If opioid is for acute pain is fill amount 7 days or less?: Yes If Rx opioid, was Start Talking consent form obtained?: Yes Referrals: Nonstaff,Physician [Primary Care Provider] - 1-2 days Sukhdeep Neff MD [STAFF PHYSICIAN] - 1-2 days Time of Disposition: 05:30
[2022-06-15 04:27] LABS: Basophils # (A) 0.1 k/uL (0-0.2); Basophils % (A) 1 %; Eosinophils # (A) 0.2 k/uL (0-0.7); Eosinophils % (A) 4 %; HCT 37.2 % (39.0-53.0); HGB 12.1 gm/dL (13.0-17.5); Lymphocytes # (A) 1.2 k/uL (1.0-4.8); Lymphocytes % (A) 19 %; MCH 30.7 pg (25.0-35.0); MCHC 32.6 g/dL (31.0-37.0); MCV 94.2 fL (80.0-100.0); Mean Platelet Volume 8.9; Monocytes # (A) 0.4 k/uL (0-1.0); Monocytes % (A) 6 %; Neutrophils # (A) 4.4 k/uL (1.3-7.7); Neutrophils % (A) 68 %; Platelet Count 150 k/uL (150-450); RBC 3.95 m/uL (4.30-5.90); RDW 14.2 % (11.5-15.5); WBC 6.4 k/uL (3.8-10.6)
[2022-06-15 04:45] LABS: Albumin 3.9 g/dL (3.5-5.0); Calcium 7.8 mg/dL (8.4-10.2); Magnesium 2.3 mg/dL (1.6-2.3); Potassium 5.2 mmol/L (3.5-5.1); Total Bilirubin 0.6 mg/dL (0.2-1.3); Total Protein 6.1 g/dL (6.3-8.2)
[2022-06-15 04:53] LABS: Appearance,Urine Clear (Clear); Bacteria,Urine Rare /hpf; Bilirubin,Urine Negative (Negative); Blood,Urine Large (Negative); Color,Urine Light Yellow; Glucose,Urine (UA) Negative (Negative); Ketones,Urine Negative (Negative); Leukocyte Esterase,Urine Negative (Negative); Mucus,Urine Rare /hpf; Nitrite,Urine Negative (Negative); PH, Urine 5.5 (5.0-8.0); Protein,Urine 1+ (Negative); RBC,Urine >182 /hpf (0-5); Specific Gravity,Urine 1.009 (1.001-1.035); Squamous Epithelial Cell,Urine <1 /hpf (0-4); Urobilinogen,Urine <2.0 mg/dL (<2.0); WBC,Urine 5 /hpf (0-5)
--- NOTE | 2022-06-15 05:01 | CT ---
EXAMINATION TYPE: CT abdomen pelvis wo con DATE OF EXAM: 06/15/2022 COMPARISON: 04/07/2020 HISTORY: LT SIDED FLANK PAIN. H/O RENAL STONES CT DLP: 566.9 mGycm Automated exposure control for dose reduction was used. Images obtained from the diaphragm to the floor the pelvis with no contrast. There is some mild interstitial infiltrate in the lower lung munoz. Heart is moderately enlarged. No pericardial effusion. No pleural effusion. Liver and spleen are intact. The bile ducts are not dilated. There is small calcified gallstone. Ther e is small hiatal hernia. No evidence of pancreatic mass. There is no adrenal mass. There is mild symmetric renal cortical atrophy. There is left-sided hydrone phrosis and hydroureter. There is calcification on axial image 133 that could be small calculus measu ring 3 mm in the distal left ureter. The urinary bladder is intact. No evidence of bladder mass. The prostate measures 5.2 cm. There is small amount of low-density free fluid in the pelvis. There is rig ht-sided peritoneal dialysis catheter noted. No evidence of a bowel obstruction. No mesenteric edema. No evidence of free air. No evidence of a re nal mass. The lumbar vertebrae have normal alignment. No compression fracture. Bony pelvis is intact. The hip joints are intact. IMPRESSION: Left-sided hydronephrosis and hydroureter appears new compared to old exam and there is possible smal l stone in the distal left ureter. Single calcified gallstone. There is moderately severe cardiomegaly which appears slightly worse than old exam. There is mild increased interstitial density in the lower lung munoz compared to old exam and could be mild heart failure.
== END 2022-06-15 06:27 | disposition home or self-care (01) ==
LOC: EC 03:48
DX: N13.2 Hydronephrosis with renal and ureteral calculous obstruction (principal); I13.0 Hypertensive heart and chronic kidney disease with heart failure and stage 1 through stage 4 chronic kidney disease, or unspecified chronic kidney disease; E11.22 Type 2 diabetes mellitus with diabetic chronic kidney disease; N18.4 Chronic kidney disease, stage 4 (severe); I50.9 Heart failure, unspecified; Z79.82 Long term (current) use of aspirin; Z79.02 Long term (current) use of antithrombotics/antiplatelets; Z79.4 Long term (current) use of insulin; Z95.5 Presence of coronary angioplasty implant and graft
CPT/HCPCS: 99284 ×2; 96374 ×2; 96375 ×2; 96361 ×2; 36415; 80053; 83735; 85025; 81001; 74176; J2405; J1885

== ENCOUNTER 2022-06-17 08:54 | Inpatient (IN) | payer MEDICARE, OTHER ==
[2022-06-17 09:53] LABS: Basophils % (A) 0 %; Eosinophils # (A) 0.2 k/uL (0-0.7); Eosinophils % (A) 4 %; HCT 33.9 % (39.0-53.0); HGB 11.1 gm/dL (13.0-17.5); Lymphocytes # (A) 0.8 k/uL (1.0-4.8); Lymphocytes % (A) 19 %; MCH 30.7 pg (25.0-35.0); MCHC 32.7 g/dL (31.0-37.0); MCV 93.9 fL (80.0-100.0); Mean Platelet Volume 9.1; Monocytes # (A) 0.4 k/uL (0-1.0); Monocytes % (A) 9 %; Neutrophils # (A) 2.8 k/uL (1.3-7.7); Neutrophils % (A) 66 %; Platelet Count 125 k/uL (150-450); RBC 3.61 m/uL (4.30-5.90); RDW 14.3 % (11.5-15.5); WBC 4.3 k/uL (3.8-10.6)
--- NOTE | 2022-06-17 10:02 | XR ---
EXAMINATION TYPE: XR chest 2V DATE OF EXAM: 06/17/2022 COMPARISON: 09/08/2021 HISTORY: Shortness of breath TECHNIQUE: Frontal and lateral views of the chest are obtained. FINDINGS: There are median sternotomy postsurgical changes as well as a single lead AICD with genera tor over the right chest. The heart is enlarged. Pulmonary vasculature is generous. There are increas ed interstitial markings bilaterally. Linear bands of scar in the right lower lobe. No pneumothorax. No acute osseous abnormality. IMPRESSION: Increased bilateral interstitial markings favor early CHF.
[2022-06-17 10:04] LABS: Albumin 3.5 g/dL (3.5-5.0); Calcium 7.6 mg/dL (8.4-10.2); Total Bilirubin 0.8 mg/dL (0.2-1.3); Total Protein 5.7 g/dL (6.3-8.2)
[2022-06-17 10:31] LABS: Creatine Kinase MB 3.6 ng/mL (0.0-2.4); Troponin I 0.028 ng/mL (0.000-0.034)
[2022-06-17 10:40] LABS: Potassium 6.1 mmol/L (3.5-5.1)
--- NOTE | 2022-06-17 10:55 | XR ---
EXAMINATION TYPE: XR KUB DATE OF EXAM: 06/17/2022 10:39 AM CLINICAL HISTORY: Kidney stone, flank pain TECHNIQUE: Two Upright KUB images of the abdomen are obtained. COMPARISON: CT abdomen and pelvis 2 days earlier. FINDINGS: No definite nephrolithiasis. Overall nonobstructive bowel gas pattern redemonstrated. Redem onstration of overlying sternal wires along with cardiomegaly and single lead pacemaker/defibrillator . There is percutaneous peritoneal dialysis catheter redemonstrated. No free air. Osseous structures are intact. Scattered pelvic phleboliths are redemonstrated. IMPRESSION: As above. No significant change from recent CT.
[2022-06-17 11:13] LABS: Amorphous Sediment,Urine Rare /hpf; Appearance,Urine Clear (Clear); Bacteria,Urine Rare /hpf; Bilirubin,Urine Negative (Negative); Blood,Urine Large (Negative); Color,Urine Yellow; Glucose,Urine (UA) Negative (Negative); Ketones,Urine Negative (Negative); Leukocyte Esterase,Urine Moderate (Negative); Mucus,Urine Rare /hpf; Nitrite,Urine Negative (Negative); Protein,Urine 1+ (Negative); RBC,Urine 168 /hpf (0-5); Specific Gravity,Urine 1.008 (1.001-1.035); Squamous Epithelial Cell,Urine <1 /hpf (0-4); Urobilinogen,Urine <2.0 mg/dL (<2.0); WBC,Urine 6 /hpf (0-5)
--- NOTE | 2022-06-17 11:39 | ED ---
Abdominal Pain HPI - General Chief Complaint: Abdominal Pain Stated Complaint: kidney stone-revisit Time Seen by Provider: 06/17/22 09:05 Source: patient Mode of arrival: ambulatory Limitations: no limitations - History of Present Illness Initial Comments: 57-year-old male with past medical history of end-stage renal disease on peritoneal dialysis, diabetes who presents to the emergency department reporting left flank pain. He was seen in the emergency department 2 days ago for similar complaint. Was diagnosed with a ureteral stone. He was placed on Flomax, Toradol [place] and Zofran. He has been taking the medications and originally had improvement in his pain. He states that he has had 8 pounds of fluid retention. Reports some scrotal swelling. He normally uses [facility] for dialysis. States that he has used [facility] for the past 2 nights in order to pull off more fluid however but has been unsuccessful. Reports that he normally makes a decent amount of urine. Over the past couple of days he has a significant reduction in his urine output. He also has been unable to dialyze at off. He called his PD nurse who recommended that he come into the hospital. He also reports that today the pain became more significant on the left side there. Home medications were not working. He did complete his dialysis. Denies any fevers. No hematuria. No other alleviating, precipitating modifying factors - Related Data Home Medications Medication Instructions Recorded Confirmed Aspirin EC [Ecotrin Low Dose] 81 mg PO DAILY 10/14/19 06/19/22 Insulin Aspart (For Pump) [NovoLOG 0.01 unit SQ-PUMP CONTINUOUS 10/14/19 06/19/22 (For Pump)] Nitroglycerin Sl Tabs [Nitrostat] 0.4 mg SL Q5M PRN 10/14/19 06/19/22 carvediloL 12.5 mg PO BID 10/14/19 06/19/22 Alirocumab [Praluent Pen] 150 mg SQ Q14D 12/23/19 06/19/22 Zinc Gluconate [Zinc] 50 mg PO DAILY 04/07/20 06/19/22 Enalapril [Vasotec] 5 mg PO BID 09/18/21 06/19/22 Cholecalciferol [Vitamin D3 (25 25 mcg PO DAILY 06/19/22 06/19/22 Mcg = 1000 Iu)] Previous Rx's Medication Instructions Recorded HYDROcodone/APAP 5-325MG [[place] 1 tab PO Q6HR PRN 3 Days #12 tab 06/15/22 5-325] Ondansetron Odt [Zofran ODT] 4 mg PO Q8HR PRN #20 tab 06/15/22 Tamsulosin [Flomax] 0.4 mg PO DAILY #14 cap 06/15/22 Acetaminophen Tab [Tylenol] 650 mg PO Q6HR PRN tab 06/18/22 Cefdinir [Omnicef] 300 mg PO Q12HR #6 capsule 06/18/22 Furosemide [Lasix] 40 mg PO DAILY #30 tablet 06/18/22 Cephalexin [Keflex] 500 mg PO Q6HR #40 cap 06/19/22 Allergies Allergy/AdvReac Type Severity Reaction Status Date / Time fish oil AdvReac Chest Pain Verified 06/19/22 17:07 omega-3 acid ethyl esters AdvReac Chest Pain Verified 06/19/22 17:07 [From Lovaza] promethazine [From Phenergan] AdvReac Hallucinati Verified 06/19/22 17:07 ons Review of Systems ROS Statement: Those systems with pertinent positive or pertinent negative responses have been documented in the HPI. ROS Other: All systems not noted in ROS Statement are negative. Past Medical History Past Medical History: Heart Failure, Diabetes Mellitus, Hypertension, Renal Disease Additional Past Medical History / Comment(s): CHF. peritoneal port in abdomen. stage 4 kidney failure. History of Any Multi-Drug Resistant Organisms: None Reported Past Surgical History: Coronary Bypass/CABG, Heart Catheterization With Stent Additional Past Surgical History / Comment(s): Port in abdomen. X6. Defibrillator. Hernia Repair - inguinal Past Anesthesia/Blood Transfusion Reactions: No Reported Reaction Date of Last Stent Placement:: 2010 Past Psychological History: No Psychological Hx Reported Smoking Status: Never smoker Past Alcohol Use History: None Reported Past Drug Use History: None Reported General Exam Limitations: no limitations General appearance: alert, in no apparent distress Head exam: Present: atraumatic, normocephalic, normal inspection Eye exam: Present: normal appearance, PERRL, EOMI. Absent: scleral icterus, conjunctival injection, periorbital swelling ENT exam: Present: normal exam, mucous membranes moist Neck exam: Present: normal inspection. Absent: tenderness, meningismus, lymphadenopathy Respiratory exam: Present: normal lung sounds bilaterally. Absent: respiratory distress, wheezes, rales, rhonchi, stridor Cardiovascular Exam: Present: regular rate, normal rhythm, normal heart sounds. Absent: systolic murmur, diastolic murmur, rubs, gallop, clicks GI/Abdominal exam: Present: soft, normal bowel sounds. Absent: distended, tenderness, guarding, rebound, rigid Extremities exam: Present: normal inspection, full ROM, normal capillary refill. Absent: tenderness, pedal edema, joint swelling, calf tenderness Back exam: Present: normal inspection Neurological exam: Present: alert, oriented X3, CN II-XII intact Psychiatric exam: Present: normal affect, normal mood Skin exam: Present: warm, dry, intact, normal color. Absent: rash Course Vital Signs 06/17/22 06/17/22 06/17/22 08:59 09:45 11:00 Temperature 98.7 F Pulse Rate 68 64 Pulse Rate [ Pulse Oximetery ] Respiratory 20 18 18 Rate Blood Pressure 141/81 135/73 127/74 Blood Pressure [Left Arm Sitting] O2 Sat by Pulse 99 99 Oximetry 06/17/22 06/17/22 14:24 14:31 Temperature 98.2 F Pulse Rate 70 Pulse Rate [ 65 Pulse Oximetery ] Respiratory 17 18 Rate Blood Pressure 136/82 Blood Pressure 138/82 [Left Arm Sitting] O2 Sat by Pulse 99 99 Oximetry Medical Decision Making - Medical Decision Making Was pt. sent in by a medical professional or institution (JERRICA Pederson, CUSTOMER SERVICE PROFESSIONAL, urgent care, hospital, or half-way...) When possible be specific @ -[No] Did you speak to anyone other than the patient for history (EMS, parent, family, police, friend...)? What history was obtained from this source @ -[No] Did you review nursing and triage notes (agree or disagree)? Why? @ -[I reviewed and agree with nursing and triage notes] Were old charts reviewed (outside hosp., previous admission, EMS record, old EKG, old radiological studies, urgent care reports/EKG's, half-way records)? Report findings visit for ureteral stone 2 days ago was reviewed (ct that was done, prescribed medications) Differential Diagnosis (chest pain, altered mental status, abdominal pain women, abdominal pain men, vaginal bleeding, weakness, fever, dyspnea, syncope, headache, dizziness, GI bleed, back pain, seizure, CVA, palpatations, mental health)? chf exacerbation, hydronephrosis/hydroureter, hematuria, septic stone EKG interpreted by me (3pts min.). yes X-rays interpreted by me (1pt min.). yes CT interpreted by me (1pt min.). @ -[None done] U/S interpreted by me (1pt. min.). yes What testing was considered but not performed or refused? (CT, X-rays, U/S, labs)? Why? ct - recently done 2 days ago What meds were considered but not given or refused? Why? @ -[None] Did you discuss the management of the patient with other professionals (professionals i.e. , PA, CUSTOMER SERVICE PROFESSIONAL, lab, RT, psych nurse, director of social work, cut lace machine operator, teacher, engineering officer, dependency case manager)? Give summary Dr. pickett (several times), dr. neff, dr aquino (several times), dialysis principal product manager, flood supervisor international reservations, dialysis coordinator Was smoking cessation discussed for >3mins.? @ -[No] Was critical care preformed (if so, how long)? yes - 45 minutes Were there social determinants of health that impacted care today? How? (Homelessness, low income, unemployed, alcoholism, drug addiction, transportation, low edu. Level, literacy, decrease access to med. care, intermediate, rehab)? @ -[No] Was there de-escalation of care discussed even if they declined (Discuss DNR or withdrawal of care, Hospice)? DNR status @ -[No] What co-morbidities impacted this encounter? (DM, HTN, Smoking, COPD, CAD, Cancer, CVA, ARF, Chemo, Hep., AIDS, mental health diagnosis, sleep apnea, morbid obesity)? ESRD on peritoneal dialysis Was patient admitted / discharged? Hospital course, mention meds given and route, prescriptions, significant lab abnormalities, going to OR and other pertinent info. Upon arrival patient was placed into room 21. A thorough history and physical exam was performed. IV access established laboratory studies were conducted. Renal ultrasound and KUB are performed. Laboratory studies remarkable for a potassium of 6.1. Creatinine 5.7. Ultrasound demonstrates significant left sided hydronephrosis. Spoke with Dr. Neff. States that he wants the patient made nothing by mouth for intervention in the morning. Spoke with Dr. Pickett. He does give me orders for manual peritoneal dialysis - 2 L every 6 hours of the 2.5 solution. Patient will be given 2 A of bicarb, 10 units of insulin, amp of dextrose, 1 g of calcium gluconate and Lokelma x 1. Repeat potassium in [address] Aquino who accepted admission of the patient. I i nformed the patient that we would have to do manual dialysis. He would prefer automatic cycler. I did make several phone calls to attempt to obtain an automatic Sickler. This is not available in the hospital. Spoke with the patient regards to the manual dialysis and he refused. Patient given option for transfer, placement of temporary hemodialysis catheter, manual dialysis. Patient's does not offer any of these. Understands the risks of not having dialysis including and disability. Patient aware of these risks. Undiagnosed new problem with uncertain prognosis? yes Drug Therapy requiring intensive monitoring for toxicity (Heparin, Nitro, Insulin, Cardizem)? @ -[No] Were any procedures done? @ -[No] Diagnosis/symptom? acute ureteral stone with hydronephrosis and hydroureter Acute, or Chronic, or Acute on Chronic? acute Uncomplicated (without systemic symptoms) or Complicated (systemic symptoms)? complica nelly Side effects of treatment? @ -[No] Exacerbation, Progression, or Severe Exacerbation? @ -[No] Poses a threat to life or bodily function? How? (Chest pain, USA, MD, pneumonia, PE, COPD, DKA, ARF, appy, cholecystitis, CVA, Diverticulitis, Homicidal, Suicidal, threat to staff... and all critical care pts) yes Diagnosis/symptom? esrd on peritoneal dialysis Acute, or Chronic, or Acute on Chronic? chronic Uncomplicated (without systemic symptoms) or Complicated (systemic symptoms)? complicated Side effects of treatment? @ -[No] Exacerbation, Progression, or Severe Exacerbation? @ -[No] Poses a threat to life or bodily function? How? (Chest pain, USA, MD, pneumonia, PE, COPD, DKA, ARF, appy, cholecystitis, CVA, Diverticulitis, Homicidal, Suicidal, threat to staff... and all critical care pts) yes Diagnosis/symptom? acute hyperkalemia Acute, or Chronic, or Acute on Chronic? acute Uncomplicated (without systemic symptoms) or Complicated (systemic symptoms)? complicated Side effects of treatment? hypoglycemia Exacerbation, Progression, or Severe Exacerbation? @ -[No] Poses a threat to life or bodily function? How? (Chest pain, [place], MD, pneumonia, PE, COPD, DKA, ARF, appy, cholecystitis, CVA, Diverticulitis, Homicidal, Suicidal, threat to staff... and all critical care pts) yes Diagnosis/symptom? acute chf/volume overload Acute, or Chronic, or Acute on Chronic? acute on chronic Uncomplicated (without systemic symptoms) or Complicated (systemic symptoms)? complicated Side effects of treatment? @ -[No] Exacerbation, Progression, or Severe Exacerbation? @ -[No] Poses a threat to life or bodily function? How? (Chest pain, [place], MD, pneumonia, PE, COPD, DKA, ARF, appy, cholecystitis, CVA, Diverticulitis, Homicidal, Suicidal, threat to staff... and all critical care pts) yes - Lab Data Result diagrams: 06/18/22 08:28 06/18/22 08:28 Lab Results 06/17/22 06/17/22 06/17/22 Range/Units 09:39 09:39 09:39 WBC 4.3 (3.8-10.6) k/uL RBC 3.61 L (4.30-5.90) m/uL Hgb 11.1 L (13.0-17.5) gm/dL Hct 33.9 L (39.0-53.0) % MCV 93.9 (80.0-100.0) fL MCH 30.7 (25.0-35.0) pg MCHC 32.7 (31.0-37.0) g/dL RDW 14.3 (11.5-15.5) % Plt Count 125 L (150-450) k/uL MPV 9.1 Neutrophils % 66 % Lymphocytes % 19 % Monocytes % 9 % Eosinophils % 4 % Basophils % 0 % Neutrophils # 2.8 (1.3-7.7) k/uL Lymphocytes # 0.8 L (1.0-4.8) k/uL Monocytes # 0.4 (0-1.0) k/uL Eosinophils # 0.2 (0-0.7) k/uL Basophils # 0.0 (0-0.2) k/uL Sodium 135 L (137-145) mmol/L Potassium 6.1 H* (3.5-5.1) mmol/L Chloride 107 (98-107) mmol/L Carbon Dioxide 21 L (22-30) mmol/L Anion Gap 7 mmol/L BUN 62 H (9-20) mg/dL Creatinine 5.73 H (0.66-1.25) mg/dL Est GFR (CKD-EPI)AfAm 12 (>60 ml/min/1.73 sqM) Est GFR (CKD-EPI)NonAf 10 (>60 ml/min/1.73 sqM) Glucose 125 H (74-99) mg/dL POC Glucose (mg/dL) (70-110) mg/dL POC Glu [place] Hydraulic Press Operator ID Calcium 7.6 L (8.4-10.2) mg/dL Total Bilirubin 0.8 (0.2-1.3) mg/dL AST 28 (17-59) U/L ALT 35 (4-49) U/L Alkaline Phosphatase 78 (38-126) U/L Total Creatine Kinase 217 H (55-170) U/L CK-MB (CK-2) 3.6 H (0.0-2.4) ng/mL CK-MB (CK-2) Rel Index 1.7 Troponin I 0.028 (0.000-0.034) ng/mL NT-Pro-B Natriuret Pep pg/mL Total Protein 5.7 L (6.3-8.2) g/dL Albumin 3.5 (3.5-5.0) g/dL Urine Color Urine Appearance (Clear) Urine pH (5.0-8.0) Ur Specific [place] (1.001-1.035) Urine Protein (Negative) Urine Glucose (UA) (Negative) Urine Ketones (Negative) Urine Blood (Negative) Urine Nitrite (Negative) Urine Bilirubin (Negative) Urine Urobilinogen (<2.0) mg/dL Ur Leukocyte Esterase (Negative) Urine RBC (0-5) /hpf Urine WBC (0-5) /hpf Ur Squamous Epith Cells (0-4) /hpf Amorphous Sediment (None) /hpf Urine Bacteria (None) /hpf Urine Mucus (None) /hpf 06/17/22 06/17/22 06/17/22 Range/Units 09:39 10:25 12:45 WBC (3.8-10.6) k/uL RBC (4.30-5.90) m/uL Hgb (13.0-17.5) gm/dL Hct (39.0-53.0) % MCV (80.0-100.0) fL MCH (25.0-35.0) pg MCHC (31.0-37.0) g/dL RDW (11.5-15.5) % Plt Count (150-450) k/uL MPV Neutrophils % % Lymphocytes % % Monocytes % % Eosinophils % % Basophils % % Neutrophils # (1.3-7.7) k/uL Lymphocytes # (1.0-4.8) k/uL Monocytes # (0-1.0) k/uL Eosinophils # (0-0.7) k/uL Basophils # (0-0.2) k/uL Sodium 134 L (137-145) mmol/L Potassium 5.7 H (3.5-5.1) mmol/L Chloride 106 (98-107) mmol/L Carbon Dioxide 22 (22-30) mmol/L Anion Gap 6 mmol/L BUN 61 H (9-20) mg/dL Creatinine 5.91 H (0.66-1.25) mg/dL Est GFR (CKD-EPI)AfAm 11 (>60 ml/min/1.73 sqM) Est GFR (CKD-EPI)NonAf 10 (>60 ml/min/1.73 sqM) Glucose 80 (74-99) mg/dL POC Glucose (mg/dL) (70-110) mg/dL POC Glu [place] Hydraulic Press Operator ID Calcium 7.2 L (8.4-10.2) mg/dL Total Bilirubin (0.2-1.3) mg/dL AST (17-59) U/L ALT (4-49) U/L Alkaline Phosphatase (38-126) U/L Total Creatine Kinase (55-170) U/L CK-MB (CK-2) (0.0-2.4) ng/mL CK-MB (CK-2) Rel Index Troponin I (0.000-0.034) ng/mL NT-Pro-B Natriuret Pep 28958 pg/mL Total Protein (6.3-8.2) g/dL Albumin (3.5-5.0) g/dL Urine Color Yellow Urine Appearance Clear (Clear) Urine pH 5.0 (5.0-8.0) Ur Specific [place] 1.008 (1.001-1.035) Urine Protein 1+ H (Negative) Urine Glucose (UA) Negative (Negative) Urine Ketones Negative (Negative) Urine Blood Large H (Negative) Urine Nitrite Negative (Negative) Urine Bilirubin Negative (Negative) Urine Urobilinogen <2.0 (<2.0) mg/dL Ur Leukocyte Esterase Moderate H (Negative) Urine RBC 168 H (0-5) /hpf Urine WBC 6 H (0-5) /hpf Ur Squamous Epith Cells <1 (0-4) /hpf Amorphous Sediment Rare H (None) /hpf Urine Bacteria Rare H (None) /hpf Urine Mucus Rare H (None) /hpf 06/17/22 Range/Units 13:04 WBC (3.8-10.6) k/uL RBC (4.30-5.90) m/uL Hgb (13.0-17.5) gm/dL Hct (39.0-53.0) % MCV (80.0-100.0) fL MCH (25.0-35.0) pg MCHC (31.0-37.0) g/dL RDW (11.5-15.5) % Plt Count (150-450) k/uL MPV Neutrophils % % Lymphocytes % % Monocytes % % Eosinophils % % Basophils % % Neutrophils # (1.3-7.7) k/uL Lymphocytes # (1.0-4.8) k/uL Monocytes # (0-1.0) k/uL Eosinophils # (0-0.7) k/uL Basophils # (0-0.2) k/uL Sodium (137-145) mmol/L Potassium (3.5-5.1) mmol/L Chloride (98-107) mmol/L Carbon Dioxide (22-30) mmol/L Anion Gap mmol/L BUN (9-20) mg/dL Creatinine (0.66-1.25) mg/dL Est GFR (CKD-EPI)AfAm (>60 ml/min/1.73 sqM) Est GFR (CKD-EPI)NonAf (>60 ml/min/1.73 sqM) Glucose (74-99) mg/dL POC Glucose (mg/dL) 93 (70-110) mg/dL POC Glu [place] Hydraulic Press Operator ID Chely Corrales Calcium (8.4-10.2) mg/dL Total Bilirubin (0.2-1.3) mg/dL AST (17-59) U/L ALT (4-49) U/L Alkaline Phosphatase (38-126) U/L Total Creatine Kinase (55-170) U/L CK-MB (CK-2) (0.0-2.4) ng/mL CK-MB (CK-2) Rel Index Troponin I (0.000-0.034) ng/mL NT-Pro-B Natriuret Pep pg/mL Total Protein (6.3-8.2) g/dL Albumin (3.5-5.0) g/dL Urine Color Urine Appearance (Clear) Urine pH (5.0-8.0) Ur Specific [place] (1.001-1.035) Urine Protein (Negative) Urine Glucose (UA) (Negative) Urine Ketones (Negative) Urine Blood (Negative) Urine Nitrite (Negative) Urine Bilirubin (Negative) Urine Urobilinogen (<2.0) mg/dL Ur Leukocyte Esterase (Negative) Urine RBC (0-5) /hpf Urine WBC (0-5) /hpf Ur Squamous Epith Cells (0-4) /hpf Amorphous Sediment (None) /hpf Urine Bacteria (None) /hpf Urine Mucus (None) /hpf - EKG Data EKG Comments: EKG demonstrates sinus rhythm 60. [place] interval 236. QTC of 380. Intervals incorrect on EKG due to bundle-branch block Disposition Clinical Impression: Hydronephrosis, CKD (chronic kidney disease), Patient on peritoneal dialysis, Ureteral stone, Hyperkalemia Disposition: ADMITTED IP TO THIS HOSP Condition: Good Is patient prescribed a controlled substance at d/c from ED?: No Time of Disposition: 13:00 Decision to Admit Reason: Admit from EC Decision Date: 06/17/22 Decision Time: 13:00
--- NOTE | 2022-06-17 11:43 | US ---
EXAMINATION TYPE: US renals and bladder DATE OF EXAM: 06/17/2022 COMPARISON: CT 2 days ago CLINICAL HISTORY: hydro. Pain, difficulty urinating, known kidney stone EXAM MEASUREMENTS: Right Kidney: 9.5 x 3.9 x 3.7 cm Left Kidney: 11.7 x 5.3 x 4.6 cm Right Kidney: No evidence of hydro, cortical thinning Left Kidney: Cyst lateral= 1.3 x 1.1 cm/ Moderate hydro as visualized on prior CT Bladder: Not fully distended Bilateral Jets seen: No Increased cortical echogenicity in the right kidney with cortical thinning is identified. No concerni ng solid or cystic mass. No right-sided hydronephrosis. Bladder shows adequate distention without int raluminal mass. Persistent moderate to severe left-sided hydronephrosis with cortical thinning. Technologist wesley in [place] 1.1 cm simple appearing thin-walled cyst laterally. IMPRESSION: Moderate to severe left-sided hydronephrosis remains present similar to CT study 2 days e lorna.
[2022-06-17] MEDS ORDERED: HYDROcodone/APAP 5-325MG 1 EACH TAB PO PRN (12:25)
[2022-06-17] MEDS ORDERED: ACETAMINOPHEN TAB 325 MG TAB PO PRN (12:25)
[2022-06-17] MEDS ORDERED: NALOXONE 0.4 MG/ML 1 ML VIAL IV PRN (12:25)
[2022-06-17] MEDS ORDERED: INSULIN REGULAR 100 UNIT/ML VIAL (IV) IV ONE ×3 (12:28→18:02)
[2022-06-17] MEDS ORDERED: DEXTROSE 50% SYRINGE 50 ML IVP STA ×4 (12:30→18:02)
[2022-06-17] MEDS: TAMSULOSIN 0.4 MG CAP.ER.24H PO SCH (13:11)
[2022-06-17] MEDS: Insulin Aspart (For Pump) 100 UNIT/ML VIAL SQ-PUMP SCH (13:11)
[2022-06-17 13:13] LABS: Glucose,Whole Blood 93 mg/dL (70-110)
[2022-06-17] MEDS ORDERED: SODIUM BICARB 8.4% 50 ML SYR (1 MEQ/ML) IV STA ×2 (13:20→13:21)
[2022-06-17] MEDS ORDERED: CALCIUM GLUCONATE IN NACL 1 GM in SALINE 1 100ML.BAG IVPB ONE (13:21)
[2022-06-17] MEDS ORDERED: SODIUM ZIRCONIUM CYCLOSILICATE 10 GM PACKET PO ONE (13:22)
[2022-06-17 13:35] LABS: Calcium 7.2 mg/dL (8.4-10.2); Potassium 5.7 mmol/L (3.5-5.1)
[2022-06-17 14:43] LABS: Glucose,Whole Blood 61 mg/dL (70-110)
[2022-06-17] MEDS: SODIUM ZIRCONIUM CYCLOSILICATE 10 GM PACKET PO ONE ×2 (16:33→18:13)
--- NOTE | 2022-06-17 16:35 | P.HPIM ---
History of Present Illness H&P Date: 06/17/22 Chief Complaint: flank pain, decreased urine output 57-year-old man with medical history of end-stage renal disease on peritoneal dialysis, type 1 diabetes, hypertension, hyperlipidemia, systolic heart failure with ejection fraction of 18-28% (reported) with a single lead AICD presented for evaluation of flank pain. Patient was seen in the emergency room 2 days prior to arrival for similar issues and was found to have a kidney stone in his left ureter of 3 mm. He was sent home with Toradol as well as Flomax. He says that he only took one dose of each one yesterday, but became concerned that this would affect his kidneys. In the last 24 hours, patient notes decreased urine output, increasing flank pain despite his routine dialysis. He presented to the emergency room for further evaluation due to concerns of worsening kidney stone issues. He denies fevers, chills, nausea, vomiting, chest pain, palpitations, syncope, presyncope, cough, dyspnea, abdominal pain, constipation, diarrhea, dysuria, dyschezia, numbness/weakness of extremities. He reports decreased urine output. He reports bilateral flank pain. In the emergency room, patient was afebrile, 140/81, heart rate 60, 99% on room air. CBC was remarkable for anemia down to 11.1, which is baseline, as well as platelets of 125 which are baseline. Chemistries were concerning for potassium of 6.1, BUN of 62, creatinine of 5.73. Liver function tests are unremarkable. BNP is 16,000. Troponin is 0.028. UA showed 1+ protein, large blood, moderate leukocyte esterase, 168 red blood cells, 6 white blood cells, rare bacteria. Renal ultrasound showed moderate to severe left-sided hydronephrosis. KUB did not identify a stone, but did show scattered pelvic phleboliths. Chest x-ray showed increased bilateral interstitial markings in a batwing pattern, reviewed by admitting hospitalist, favoring early heart failure. EKG shows normal sinus rhythm with first-degree AV block, left bundle branch block with left axis deviation, right bundle sukhjinder block as well, occasional PVCs, reviewed by adm itting hospitalist. Case discussed with emergency room physician and decision was made to admit the patient to the medical floor with telemetry for further management. Patient was given calcium gluconate, D50/insulin, lokelma after discussion with nephrology, with plans to repeat the BMP. The potassium returned on 4 hour repeat with a value of 5.7. Peritoneal dialysis orders were placed after discussion with nephrology. The patient subsequently received a second round of calcium gluconate, D50/insulin, lokelma. The case was also discussed with urology over the phone, who recommended patients don't get removed tomorrow morning. All Systems reviewed and pertinent positives and negatives noted in HPI, all other symptoms are negative Gen: in no apparent distress, resting comfortably in bed Eyes: PERRL, no scleral injection or icterus HENT: normocephalic, atraumatic, good hearing acuity, moist mucous membranes Neck: no tracheal deviation, full range of motion Resp: good air exchange, breathing comfortably with no accessory muscle use, no tactile fremitus, bilateral crackles CVS: good distal perfusion x 4, bilateral 1-2+ pitting edema, regular rate and rhythm with systolic blowing murmur GI: soft, NTTP, ND, no hepatosplenomegaly, peritoneal dialysis catheter present : no suprapubic tenderness, no CVAT, zavala catheter not present MSK: no clubbing, no cyanosis, no noted contractures of extremities Skin: no noted rashes, petechiae; temperature of skin is appropriate Neuro: moving all extremities without signs of weakness, CN II-XII intact Psych: cooperative, euthymic mood, insight and judgment intact Labs and imaging as above Assessment/plan: End-stage renal disease with hyperkalemia Hydronephrosis Acute on chronic systolic and diastolic combined heart failure, ejection fraction 18-20% -Admit inpatient, telemetry to the progressive unit -BMP every 6 hours -Cardiology consult for ejection fraction of 18-20% -Strict intake, outtake, daily weights -Repeat echocardiogram -Start Lasix 80 mg IV twice a day -Case discussed with urology, plan is for nephroureteral stent tomorrow morning, in the meantime I am starting ceftriaxone 1 g every 24 hours -Nothing by mouth at midnight -Renal diet Case discussed with nephrology, they recommend peritoneal dialysis every 6 hours with 2 L of 2.5% solution, however, patient declines to have manual peritoneal dialysis, this hospital does not have a cycler. Several options were discussed with the patient including 1. Doing light manual peritoneal dialysis every 3 hours instead of every 6 hours, or at least two times including one time today and another tomorrow, 2. Doing temporary hemodialysis with temporary hemodialysis catheter, 3. Delaying dialysis with risk of having increasing potassium and all associated risks. The risks that were discussed were arrhythmia, cardiac arrest, from hyperkalemia and other metabolic derangements from delaying dialysis, other risks that were discussed included development of pyelonephritis, sepsis, septic shock, cardiac arrest from uncontrolled infection due to kidney stone, we also discussed further damage to left kidney from possible delay of procedure due to metabolic arrangements making anesthesia more risky in this patient. Patient expressed understanding of these risks, and opted to delay his dialysis and to follow his potassium levels because he believes they'll come down with potassium shifting agents and lokelma, but did not completely rule out hemodialysis if absolutely necessary for this procedure. He would like to discuss the possibility of hemodialysis tomorrow based on lab work overnight. Diabetes, type I Hypertension Hyperlipidemia -Home medications reviewed and reconciled Patient is full code Patient is a Oriental orthodox and declines any blood products in the future Patient DVT prophylaxis on hold in anticipation of procedure tomorrow by urology Past Medical History Past Medical History: Heart Failure, Diabetes Mellitus, Hypertension, Renal Disease Additional Past Medical History / Comment(s): CHF. peritoneal port in abdomen. stage 4 kidney failure. History of Any Multi-Drug Resistant Organisms: None Reported Past Surgical History: Coronary Bypass/CABG, Heart Catheterization With Stent Additional Past Surgical History / Comment(s): Port in abdomen. X6. Defibrillator. Hernia Repair - inguinal Past Anesthesia/Blood Transfusion Reactions: No Reported Reaction Date of Last Stent Placement:: 2010 Past Psychological History: No Psychological Hx Reported Smoking Status: Never smoker Past Alcohol Use History: None Reported Past Drug Use History: None Reported Medications and Allergies Home Medications Medication Instructions Recorded Confirmed Type Aspirin EC [Ecotrin Low Dose] 81 mg PO DAILY 10/14/19 06/17/22 History Insulin Aspart (For Pump) [NovoLOG 0.01 unit SQ-PUMP CONTINUOUS 10/14/19 06/17/22 History (For Pump)] Nitroglycerin Sl Tabs [Nitrostat] 0.4 mg SL Q5M PRN 10/14/19 06/17/22 History carvediloL 12.5 mg PO BID 10/14/19 06/17/22 History Alirocumab [Praluent Pen] 150 mg SQ Q14D 12/23/19 06/17/22 History Cholecalciferol [Vitamin D3 (25 25 mcg PO DAILY 04/07/20 06/17/22 History Mcg = 1000 Iu)] Zinc Gluconate [Zinc] 50 mg PO DAILY 04/07/20 06/17/22 History Enalapril [Vasotec] 5 mg PO BID 09/18/21 06/17/22 History HYDROcodone/APAP 5-325MG [[place] 1 tab PO Q6HR PRN 3 Days #12 tab 06/15/22 06/17/22 Rx 5-325] Ketorolac [Toradol] 10 mg PO Q6HR #30 tab 06/15/22 06/17/22 Rx Ondansetron Odt [Zofran Odt] 4 mg PO Q8HR PRN #20 tab 06/15/22 06/17/22 Rx Tamsulosin [Flomax] 0.4 mg PO DAILY #14 cap 06/15/22 06/17/22 Rx Allergies Allergy/AdvReac Type Severity Reaction Status Date / Time fish oil AdvReac Chest Pain Verified 06/17/22 11:57 omega-3 acid ethyl esters AdvReac Chest Pain Verified 06/17/22 11:57 [From Lovaza] promethazine [From Phenergan] AdvReac Hallucinati Verified 06/17/22 11:57 ons Physical Exam Osteopathic Statement: *. No significant issues noted on an osteopathic structural exam other than those noted in the History and Physical/Consult. Vitals: Vital Signs Temp Pulse Resp BP Pulse Ox 06/17/22 14:31 70 18 136/82 99 06/17/22 11:00 64 18 127/74 99 06/17/22 09:45 18 135/73 06/17/22 08:59 98.7 F 68 20 141/81 99 Intake and Output 06/17/22 06/17/22 06/17/22 06:59 14:59 22:59 Output Total 21 Balance -21 Output: Post Void Residual 21 Other: Weight 81.193 kg Results CBC & Chem 7: 06/17/22 09:39 06/17/22 12:45 Labs: Abnormal Lab Results - Last 24 Hours (Table) 06/17/22 06/17/22 06/17/22 Range/Units 09:39 09:39 09:39 RBC 3.61 L (4.30-5.90) m/uL Hgb 11.1 L (13.0-17.5) gm/dL Hct 33.9 L (39.0-53.0) % Plt Count 125 L (150-450) k/uL Lymphocytes # 0.8 L (1.0-4.8) k/uL Sodium 135 L (137-145) mmol/L Potassium 6.1 H* (3.5-5.1) mmol/L Carbon Dioxide 21 L (22-30) mmol/L BUN 62 H (9-20) mg/dL Creatinine 5.73 H (0.66-1.25) mg/dL Glucose 125 H (74-99) mg/dL POC Glucose (mg/dL) (70-110) mg/dL Calcium 7.6 L (8.4-10.2) mg/dL Total Creatine Kinase 217 H (55-170) U/L CK-MB (CK-2) 3.6 H (0.0-2.4) ng/mL Total Protein 5.7 L (6.3-8.2) g/dL Urine Protein (Negative) Urine Blood (Negative) Ur Leukocyte Esterase (Negative) Urine RBC (0-5) /hpf Urine WBC (0-5) /hpf Amorphous Sediment (None) /hpf Urine Bacteria (None) /hpf Urine Mucus (None) /hpf 06/17/22 06/17/22 06/17/22 Range/Units 10:25 12:45 14:06 RBC (4.30-5.90) m/uL Hgb (13.0-17.5) gm/dL Hct (39.0-53.0) % Plt Count (150-450) k/uL Lymphocytes # (1.0-4.8) k/uL Sodium 134 L (137-145) mmol/L Potassium 5.7 H (3.5-5.1) mmol/L Carbon Dioxide (22-30) mmol/L BUN 61 H (9-20) mg/dL Creatinine 5.91 H (0.66-1.25) mg/dL Glucose (74-99) mg/dL POC Glucose (mg/dL) 61 L (70-110) mg/dL Calcium 7.2 L (8.4-10.2) mg/dL Total Creatine Kinase (55-170) U/L CK-MB (CK-2) (0.0-2.4) ng/mL Total Protein (6.3-8.2) g/dL Urine Protein 1+ H (Negative) Urine Blood Large H (Negative) Ur Leukocyte Esterase Moderate H (Negative) Urine RBC 168 H (0-5) /hpf Urine WBC 6 H (0-5) /hpf Amorphous Sediment Rare H (None) /hpf Urine Bacteria Rare H (None) /hpf Urine Mucus Rare H (None) /hpf
[2022-06-17] MEDS: FUROSEMIDE 10 MG/ML 10 ML VIAL IV SCH ×2 (18:13→20:04)
[2022-06-17] MEDS: DIALYSIS (PERIT 2.5%) 2,000 ML 50 G/2,000 ML BAG INTRAPERIT SCH ×2 (18:14→23:38)
[2022-06-17] MEDS: MORPHINE SULFATE 4 MG/ML SYRINGE IVP PRN (18:55)
[2022-06-17] MEDS: carvediloL 12.5 MG TAB PO SCH (18:55)
--- NOTE | 2022-06-17 19:18 | P.GSCN ---
History of Present Illness Consult date: 06/17/22 Reason for Consult: left ureteral stone History of present illness: this is a 57-year-old male end-stage renal disease on peritoneal dialysis. He was recently seen in the ER with left flank pain and abdominal pain, he underwent a CT abdomen and pelvis that showed evidence of a 3 mm left-sided distal stone with hydronephrosis. He was subsequently discharged home but has been having low urine output since that time, persistent pain, and fluid imbalance secondary to his stone. In the ER he underwent a repeat renal ultrasound that showed evidence of persistent hydronephrosis. Denies any previous history of stones. Denies any dysuria or gross hematuria. In addition to the flank pain he is also been complaining of urgency and nausea. Review of Systems - Constitutional Denies fever, Denies weight loss - EENT Ears, nose, mouth and throat: Denies dysphagia - Cardiovascular Denies chest pain, Denies shortness of breath - Respiratory Denies cough, Denies 7 - Gastrointestinal Reports abdominal pain - Genitourinary Reports flank pain, Reports kidney stones, Denies dysuria, Denies urinary retention - Integumentary Denies rash, Denies unusual bruising - Neurological Denies headaches, Denies syncope Past Medical History Past Medical History: Heart Failure, Diabetes Mellitus, Hypertension, Renal Disease Additional Past Medical History / Comment(s): CHF. peritoneal port in abdomen. stage 4 kidney failure. History of Any Multi-Drug Resistant Organisms: None Reported Past Surgical History: Coronary Bypass/CABG, Heart Catheterization With Stent Additional Past Surgical History / Comment(s): Port in abdomen. X6. Defibrillator. Hernia Repair - inguinal Past Anesthesia/Blood Transfusion Reactions: No Reported Reaction Date of Last Stent Placement:: 2010 Type of Cardiac Device: AICD Device Placement Date:: 2007 Past Psychological History: No Psychological Hx Reported Smoking Status: Never smoker Past Alcohol Use History: None Reported Past Drug Use History: None Reported Medications and Allergies Home Medications Medication Instructions Recorded Confirmed Type Aspirin EC [Ecotrin Low Dose] 81 mg PO DAILY 10/14/19 06/17/22 History Insulin Aspart (For Pump) [NovoLOG 0.01 unit SQ-PUMP CONTINUOUS 10/14/19 06/17/22 History (For Pump)] Nitroglycerin Sl Tabs [Nitrostat] 0.4 mg SL Q5M PRN 10/14/19 06/17/22 History carvediloL 12.5 mg PO BID 10/14/19 06/17/22 History Alirocumab [Praluent Pen] 150 mg SQ Q14D 12/23/19 06/17/22 History Cholecalciferol [Vitamin D3 (25 25 mcg PO DAILY 04/07/20 06/17/22 History Mcg = 1000 Iu)] Zinc Gluconate [Zinc] 50 mg PO DAILY 04/07/20 06/17/22 History Enalapril [Vasotec] 5 mg PO BID 09/18/21 06/17/22 History HYDROcodone/APAP 5-325MG [[place] 1 tab PO Q6HR PRN 3 Days #12 tab 06/15/22 06/17/22 Rx 5-325] Ketorolac [Toradol] 10 mg PO Q6HR #30 tab 06/15/22 06/17/22 Rx Ondansetron Odt [Zofran Odt] 4 mg PO Q8HR PRN #20 tab 06/15/22 06/17/22 Rx Tamsulosin [Flomax] 0.4 mg PO DAILY #14 cap 06/15/22 06/17/22 Rx Allergies Allergy/AdvReac Type Severity Reaction Status Date / Time fish oil AdvReac Chest Pain Verified 06/17/22 11:57 omega-3 acid ethyl esters AdvReac Chest Pain Verified 06/17/22 11:57 [From Lovaza] promethazine [From Phenergan] AdvReac Hallucinati Verified 06/17/22 11:57 ons Surgical - Exam Vital Signs Temp Pulse Resp BP Pulse Ox 98.7 F 68 20 141/81 99 06/17/22 08:59 06/17/22 08:59 06/17/22 08:59 06/17/22 08:59 06/17/22 08:59 - General no distress, moderate pain - Eyes normal ocular movement, no pale - ENT normal nares, normal mucosa - Respiratory normal expansion, normal respiratory effort - Abdomen Abdomen: soft, tender (lower quadrant, CVA), no distended - Psychiatric oriented to time, oriented to person, oriented to place, speech is normal Results - Labs 06/17/22 09:39 06/17/22 12:45 Abnormal Lab Results - Last 24 Hours (Table) 06/17/22 06/17/22 06/17/22 Range/Units 09:39 09:39 09:39 RBC 3.61 L (4.30-5.90) m/uL Hgb 11.1 L (13.0-17.5) gm/dL Hct 33.9 L (39.0-53.0) % Plt Count 125 L (150-450) k/uL Lymphocytes # 0.8 L (1.0-4.8) k/uL Sodium 135 L (137-145) mmol/L Potassium 6.1 H* (3.5-5.1) mmol/L Carbon Dioxide 21 L (22-30) mmol/L BUN 62 H (9-20) mg/dL Creatinine 5.73 H (0.66-1.25) mg/dL Glucose 125 H (74-99) mg/dL POC Glucose (mg/dL) (70-110) mg/dL Calcium 7.6 L (8.4-10.2) mg/dL Total Creatine Kinase 217 H (55-170) U/L CK-MB (CK-2) 3.6 H (0.0-2.4) ng/mL Total Protein 5.7 L (6.3-8.2) g/dL Urine Protein (Negative) Urine Blood (Negative) Ur Leukocyte Esterase (Negative) Urine RBC (0-5) /hpf Urine WBC (0-5) /hpf Amorphous Sediment (None) /hpf Urine Bacteria (None) /hpf Urine Mucus (None) /hpf 06/17/22 06/17/22 06/17/22 Range/Units 10:25 12:45 14:06 RBC (4.30-5.90) m/uL Hgb (13.0-17.5) gm/dL Hct (39.0-53.0) % Plt Count (150-450) k/uL Lymphocytes # (1.0-4.8) k/uL Sodium 134 L (137-145) mmol/L Potassium 5.7 H (3.5-5.1) mmol/L Carbon Dioxide (22-30) mmol/L BUN 61 H (9-20) mg/dL Creatinine 5.91 H (0.66-1.25) mg/dL Glucose (74-99) mg/dL POC Glucose (mg/dL) 61 L (70-110) mg/dL Calcium 7.2 L (8.4-10.2) mg/dL Total Creatine Kinase (55-170) U/L CK-MB (CK-2) (0.0-2.4) ng/mL Total Protein (6.3-8.2) g/dL Urine Protein 1+ H (Negative) Urine Blood Large H (Negative) Ur Leukocyte Esterase Moderate H (Negative) Urine RBC 168 H (0-5) /hpf Urine WBC 6 H (0-5) /hpf Amorphous Sediment Rare H (None) /hpf Urine Bacteria Rare H (None) /hpf Urine Mucus Rare H (None) /hpf Diabetes panel 06/17/22 06/17/22 Range/Units 09:39 12:45 Sodium 135 L 134 L (137-145) mmol/L Potassium 6.1 H* 5.7 H (3.5-5.1) mmol/L Chloride 107 106 (98-107) mmol/L Carbon Dioxide 21 L 22 (22-30) mmol/L BUN 62 H 61 H (9-20) mg/dL Creatinine 5.73 H 5.91 H (0.66-1.25) mg/dL Glucose 125 H 80 (74-99) mg/dL Calcium 7.6 L 7.2 L (8.4-10.2) mg/dL AST 28 (17-59) U/L ALT 35 (4-49) U/L Alkaline Phosphatase 78 (38-126) U/L Total Protein 5.7 L (6.3-8.2) g/dL Albumin 3.5 (3.5-5.0) g/dL Calcium panel 06/17/22 06/17/22 Range/Units 09:39 12:45 Calcium 7.6 L 7.2 L (8.4-10.2) mg/dL Albumin 3.5 (3.5-5.0) g/dL Pituitary panel 06/17/22 06/17/22 Range/Units 09:39 12:45 Sodium 135 L 134 L (137-145) mmol/L Potassium 6.1 H* 5.7 H (3.5-5.1) mmol/L Chloride 107 106 (98-107) mmol/L Carbon Dioxide 21 L 22 (22-30) mmol/L BUN 62 H 61 H (9-20) mg/dL Creatinine 5.73 H 5.91 H (0.66-1.25) mg/dL Glucose 125 H 80 (74-99) mg/dL Calcium 7.6 L 7.2 L (8.4-10.2) mg/dL Adrenal panel 06/17/22 06/17/22 Range/Units 09:39 12:45 Sodium 135 L 134 L (137-145) mmol/L Potassium 6.1 H* 5.7 H (3.5-5.1) mmol/L Chloride 107 106 (98-107) mmol/L Carbon Dioxide 21 L 22 (22-30) mmol/L BUN 62 H 61 H (9-20) mg/dL Creatinine 5.73 H 5.91 H (0.66-1.25) mg/dL Glucose 125 H 80 (74-99) mg/dL Calcium 7.6 L 7.2 L (8.4-10.2) mg/dL Total Bilirubin 0.8 (0.2-1.3) mg/dL AST 28 (17-59) U/L ALT 35 (4-49) U/L Alkaline Phosphatase 78 (38-126) U/L Total Protein 5.7 L (6.3-8.2) g/dL Albumin 3.5 (3.5-5.0) g/dL - Imaging CT scan - abdomen: image reviewed (left-sided hydronephrosis, distal stone versus phlebolith) Assessment and Plan Assessment: this is a 57-year-old male with history of end-stage renal disease on peritoneal dialysis, recently diagnosed with a distal ureteral stone and hydronephrosis. Has been having fluid retention since being diagnosed with a stone, and having low urine output. Additionally is also been having pain secondary to stone. Discussed with him given these findings the option of left-sided ureteroscopy with holmium laser. Risk of bleeding infection injury to the ureter was discussed. He understood all the risk and agreed to proceed -nothing by mouth past midnight -Or for left-sided ureteroscopy, holmium laser lithotripsy, stone basketing and possible stent insertion
[2022-06-17] MEDS ORDERED: SODIUM ZIRCONIUM CYCLOSILICATE 10 GM PACKET PO SCH (22:00)
[2022-06-18] MEDS: carvediloL 12.5 MG TAB PO SCH (06:40)
[2022-06-18] MEDS: DIALYSIS (PERIT 2.5%) 2,000 ML 50 G/2,000 ML BAG INTRAPERIT SCH ×2 (06:40→10:15)
[2022-06-18] MEDS: FUROSEMIDE 10 MG/ML 10 ML VIAL IV SCH (08:11)
[2022-06-18] MEDS: TAMSULOSIN 0.4 MG CAP.ER.24H PO SCH (08:13)
[2022-06-18] MEDS: MORPHINE SULFATE 4 MG/ML SYRINGE IVP PRN (08:13)
[2022-06-18 08:59] LABS: Basophils % (A) 1 %; Eosinophils # (A) 0.2 k/uL (0-0.7); Eosinophils % (A) 6 %; HCT 33.3 % (39.0-53.0); HGB 10.7 gm/dL (13.0-17.5); Lymphocytes # (A) 0.7 k/uL (1.0-4.8); Lymphocytes % (A) 21 %; MCH 30.6 pg (25.0-35.0); MCHC 32.2 g/dL (31.0-37.0); MCV 95.2 fL (80.0-100.0); Mean Platelet Volume 9.9; Monocytes # (A) 0.3 k/uL (0-1.0); Monocytes % (A) 9 %; Neutrophils % (A) 61 %; Platelet Count 122 k/uL (150-450); RDW 14.8 % (11.5-15.5); WBC 3.4 k/uL (3.8-10.6)
[2022-06-18] MEDS ORDERED: ZINC SULFATE 220 MG CAP PO SCH (09:00)
[2022-06-18] MEDS ORDERED: ASPIRIN 81 MG PO SCH (09:00)
[2022-06-18] MEDS ORDERED: CHOLECALCIFEROL 25 MCG (1000 IU) TABLET PO SCH (09:00)
[2022-06-18 09:15] LABS: Calcium 7.4 mg/dL (8.4-10.2); Magnesium 2.2 mg/dL (1.6-2.3); Potassium 5.7 mmol/L (3.5-5.1)
[2022-06-18 09:26] LABS: T4, Free (Free Thyroxine) 1.44 ng/dL (0.78-2.19)
[2022-06-18 09:39] LABS: Glucose,Whole Blood 132 mg/dL (70-110)
[2022-06-18] MEDS ORDERED: DEXAMETHASONE SOD PHOSPHATE 4 MG/ML 1 ML VIAL IV ONE (09:50)
[2022-06-18] MEDS ORDERED: ONDANSETRON 4 MG/2 ML VIAL IVP ONE (09:50)
[2022-06-18] MEDS ORDERED: ceFAZolin 1,000 MG VIAL ONE (09:56)
[2022-06-18] MEDS ORDERED: PROPOFOL 10 MG/ML 20 ML VIAL IV ONE (09:56)
[2022-06-18] MEDS ORDERED: SODIUM CHLORIDE 0.9% 100 ML BAG ONE (09:56)
[2022-06-18] MEDS ORDERED: GLYCOPYRROLATE 0.2 MG/ML 2 ML VIAL ONE (09:56)
[2022-06-18] MEDS ORDERED: ePHEDrine 50 MG/ML 1 ML VIAL ONE (09:56)
[2022-06-18] MEDS ORDERED: ROCURONIUM 10 MG/ML (5 ML VIAL) IV ONE (09:56)
[2022-06-18] MEDS ORDERED: NEOSTIGMINE 1 MG/ML 10 ML VIAL ONE (09:56)
[2022-06-18] MEDS ORDERED: LIDOCAINE 2% INJ 20 MG/ML (2 ML VIAL) ONE (09:56)
[2022-06-18] MEDS ORDERED: IV FLUID CONTINUATION 950 ML IV ONE (10:01)
[2022-06-18 10:47] VITALS: TEMP 96.8
--- NOTE | 2022-06-18 10:50 | P.PN ---
Subjective Progress Note Date: 06/18/22 No acute overnight events, still has not passed the stone still having left lower quadrant pain Objective - Vital Signs Vital signs: Vital Signs Temp 96.8 F L 06/18/22 10:38 Pulse 56 L 06/18/22 10:38 Resp 18 06/18/22 10:38 BP 142/67 06/18/22 10:38 Pulse Ox 100 06/18/22 10:38 FiO2 Intake & Output 06/17/22 06/18/22 06/18/22 18:59 06:59 18:59 Intake Total 200 300 Output Total 21 Balance 179 300 Weight 81.193 kg Intake: IV 300 Oral 200 Output: Post Void Residual 21 Other: Voiding Method Toilet # Voids 2 2 1 - Constitutional General appearance: Present: no acute distress - Gastrointestinal General gastrointestinal: Present: soft. Absent: distended, tenderness - Labs CBC & Chem 7: 06/18/22 08:28 06/18/22 08:28 Labs: Abnormal Lab Results - Last 24 Hours (Table) 06/17/22 06/17/22 06/17/22 Range/Units 10:25 12:45 14:06 WBC (3.8-10.6) k/uL RBC (4.30-5.90) m/uL Hgb (13.0-17.5) gm/dL Hct (39.0-53.0) % Plt Count (150-450) k/uL Lymphocytes # (1.0-4.8) k/uL Sodium 134 L (137-145) mmol/L Potassium 5.7 H (3.5-5.1) mmol/L BUN 61 H (9-20) mg/dL Creatinine 5.91 H (0.66-1.25) mg/dL Glucose (74-99) mg/dL POC Glucose (mg/dL) 61 L (70-110) mg/dL Calcium 7.2 L (8.4-10.2) mg/dL TSH (0.465-4.680) mIU/L Urine Protein 1+ H (Negative) Urine Blood Large H (Negative) Ur Leukocyte Esterase Moderate H (Negative) Urine RBC 168 H (0-5) /hpf Urine WBC 6 H (0-5) /hpf Amorphous Sediment Rare H (None) /hpf Urine Bacteria Rare H (None) /hpf Urine Mucus Rare H (None) /hpf 06/17/22 06/18/22 06/18/22 Range/Units 18:30 08:28 08:28 WBC 3.4 L (3.8-10.6) k/uL RBC 3.50 L (4.30-5.90) m/uL Hgb 10.7 L (13.0-17.5) gm/dL Hct 33.3 L (39.0-53.0) % Plt Count 122 L (150-450) k/uL Lymphocytes # 0.7 L (1.0-4.8) k/uL Sodium (137-145) mmol/L Potassium 5.7 H 5.7 H (3.5-5.1) mmol/L BUN 62 H (9-20) mg/dL Creatinine 6.10 H (0.66-1.25) mg/dL Glucose 114 H (74-99) mg/dL POC Glucose (mg/dL) (70-110) mg/dL Calcium 7.4 L (8.4-10.2) mg/dL TSH 8.360 H (0.465-4.680) mIU/L Urine Protein (Negative) Urine Blood (Negative) Ur Leukocyte Esterase (Negative) Urine RBC (0-5) /hpf Urine WBC (0-5) /hpf Amorphous Sediment (None) /hpf Urine Bacteria (None) /hpf Urine Mucus (None) /hpf 06/18/22 Range/Units 09:37 WBC (3.8-10.6) k/uL RBC (4.30-5.90) m/uL Hgb (13.0-17.5) gm/dL Hct (39.0-53.0) % Plt Count (150-450) k/uL Lymphocytes # (1.0-4.8) k/uL Sodium (137-145) mmol/L Potassium (3.5-5.1) mmol/L BUN (9-20) mg/dL Creatinine (0.66-1.25) mg/dL Glucose (74-99) mg/dL POC Glucose (mg/dL) 132 H (70-110) mg/dL Calcium (8.4-10.2) mg/dL TSH (0.465-4.680) mIU/L Urine Protein (Negative) Urine Blood (Negative) Ur Leukocyte Esterase (Negative) Urine RBC (0-5) /hpf Urine WBC (0-5) /hpf Amorphous Sediment (None) /hpf Urine Bacteria (None) /hpf Urine Mucus (None) /hpf Assessment and Plan Assessment: this is a 57-year-old male with history of end-stage renal disease on peritoneal dialysis, recently diagnosed with a distal ureteral stone and hydronephrosis. Has been having fluid retention since being diagnosed with a stone, and having low urine output. Additionally is also been having pain secondary to stone. Discussed with him given these findings the option of left-sided ureteroscopy with holmium laser. Risk of bleeding infection injury to the ureter was discussed. He understood all the risk and agreed to proceed -Or for left-sided ureteroscopy, holmium laser lithotripsy, stone basketing and possible stent insertion
--- NOTE | 2022-06-18 10:55 | P.OP ---
Date of Procedure: 06/18/22 Preoperative Diagnosis: Left ureteral stone, hydronephrosis Postoperative Diagnosis: Same Procedure(s) Performed: Cystoscopy, left ureteroscopy, holmium laser lithotripsy, stone basketing Implants: None Anesthesia: LOISA Surgeon: Sukhdeep Neff Estimated Blood Loss (ml): 1 Pathology: other (left ureteral stone) Condition: stable Disposition: PACU Indications for Procedure: this is a 57-year-old male with history of end-stage renal disease on peritoneal dialysis, recently diagnosed with a distal ureteral stone and hydronephrosis. Has been having fluid retention since being diagnosed with a stone, and having low urine output. Additionally is also been having pain secondary to stone. Discussed with him given these findings the option of left-sided ureteroscopy with holmium laser. Risk of bleeding infection injury to the ureter was discussed. He understood all the risk and agreed to proceed Operative Findings: Left distal ureteral stone Description of Procedure: Patient brought to the operating room, general anesthesia was induced. He was prepped and draped in sterile fashion and placed in dorsal lithotomy position. Cystoscopy fitted with a 21-English sheath was inserted per urethra, cystoscopy was performed which showed no abnormality within the bladder. Patient had an obstructive prostate, with an enlarged median lobe. Attention was then carried to the left ureteral orifice. A semirigid ureteroscope was inserted per urethra and advanced up the left ureteral orifice, a stone was encountered in the distal ureter. Using the holmium laser the stone was fragmented. Stone fragments were removed using the stone basket and sent for analysis. At this time the ureteroscope was advanced all the way up to the UPJ which showed no evidence of stones. Pullback ureteroscopy was performed which showed no injury to the ureter or evidence of sizable fragments. There was minimal edema thus a stent was not placed. The bladder was emptied at the end of the case. Patient [place] ated procedure well was taken to recovery in stable condition
[2022-06-18 11:16] LABS: Glucose,Whole Blood 160 mg/dL (70-110)
[2022-06-18] MEDS ORDERED: ALBUTEROL NEBULIZED 2.5 MG/3 ML INHALATION ONE (11:16)
[2022-06-18 11:23] VITALS: BP 142/65; PULSE 54; RESP 16
[2022-06-18] MEDS: Insulin Aspart (For Pump) 100 UNIT/ML VIAL SQ-PUMP SCH (12:29)
--- NOTE | 2022-06-18 12:33 | P.CRDCN ---
History of Present Illness Consult date: 06/18/22 Requesting physician: Connie Puckett Reason for Consult (text): reported EF 18-20%, single lead ICD Chief complaint: kidney stones History of present illness: This is a pleasant 57-year-old gentleman with a history of CAD status post 4 vessel CABG 2006 with subsequent PCI of the grafts, IA in 2006, ischemic myopathy with a known ejection fraction of around 20%, according the patient has been stable for 15 years, chronic heart failure with reduced ejection fraction, hypertension, diabetes, chronic end-stage kidney disease on peritoneal dialysis, dyslipidemia and AICD implantation. He follows with out of [facility]. He follows regularly with his appeals reviewer veteran and recently underwent workup including stress tests that was stable. He presented with complaints of decreased urinary output and bilateral flank pain. Was found to have renal stones with evidence of hydronephrosis. This morning he underwent cystoscopy, left ureteroscopy,holmium laser lithotripsy, and stone basketing. Initially on admission he was feeling somewhat short of breath but has been fee ling better since his procedure this morning. He's had no recent episodes of chest discomfort his breathing has been stable. He denies any complaints of orthopnea or PND. He's had stable mild edema. He's had no palpitations or discharges from his ICD. EKG is unchanged showing sinus mechanism with left bundle branch block. Past Medical History Past Medical History: Heart Failure, Diabetes Mellitus, Hypertension, Renal Disease Additional Past Medical History / Comment(s): CHF. peritoneal port in abdomen. stage 4 kidney failure. History of Any Multi-Drug Resistant Organisms: None Reported Past Surgical History: Coronary Bypass/CABG, Heart Catheterization With Stent Additional Past Surgical History / Comment(s): Port in abdomen. X6. Defibrillator. Hernia Repair - inguinal Past Anesthesia/Blood Transfusion Reactions: No Reported Reaction Date of Last Stent Placement:: 2010 Type of Cardiac Device: AICD Device Placement Date:: 2007 Past Psychological History: No Psychological Hx Reported Smoking Status: Never smoker Past Alcohol Use History: None Reported Past Drug Use History: None Reported Medications and Allergies Home Medications Medication Instructions Recorded Confirmed Type Aspirin EC [Ecotrin Low Dose] 81 mg PO DAILY 10/14/19 06/17/22 History Insulin Aspart (For Pump) [NovoLOG 0.01 unit SQ-PUMP CONTINUOUS 10/14/19 06/17/22 History (For Pump)] Nitroglycerin Sl Tabs [Nitrostat] 0.4 mg SL Q5M PRN 10/14/19 06/17/22 History carvediloL 12.5 mg PO BID 10/14/19 06/17/22 History Alirocumab [Praluent Pen] 150 mg SQ Q14D 12/23/19 06/17/22 History Cholecalciferol [Vitamin D3 (25 25 mcg PO DAILY 04/07/20 06/17/22 History Mcg = 1000 Iu)] Zinc Gluconate [Zinc] 50 mg PO DAILY 04/07/20 06/17/22 History Enalapril [Vasotec] 5 mg PO BID 09/18/21 06/17/22 History HYDROcodone/APAP 5-325MG [[place] 1 tab PO Q6HR PRN 3 Days #12 tab 06/15/22 06/17/22 Rx 5-325] Ondansetron Odt [Zofran Odt] 4 mg PO Q8HR PRN #20 tab 06/15/22 06/17/22 Rx Tamsulosin [Flomax] 0.4 mg PO DAILY #14 cap 06/15/22 06/17/22 Rx Acetaminophen Tab [Tylenol] 650 mg PO Q6HR PRN tab 06/18/22 Rx Cefdinir [Omnicef] 300 mg PO Q12HR #6 capsule 06/18/22 Rx Furosemide [Lasix] 40 mg PO DAILY #30 tablet 06/18/22 Rx Allergies Allergy/AdvReac Type Severity Reaction Status Date / Time fish oil AdvReac Chest Pain Verified 06/17/22 11:57 omega-3 acid ethyl esters AdvReac Chest Pain Verified 06/17/22 11:57 [From Lovaza] promethazine [From Phenergan] AdvReac Hallucinati Verified 06/17/22 11:57 ons Physical Exam Vitals: Vital Signs Temp Pulse Pulse Resp BP BP Pulse Ox 06/18/22 11:23 54 L 16 142/65 100 06/18/22 11:08 56 L 14 136/66 100 06/18/22 10:53 56 L 16 128/68 100 06/18/22 10:38 96.8 F L 56 L 18 142/67 100 06/18/22 08:00 97.8 F 58 L 18 115/73 99 06/18/22 07:42 95 06/18/22 02:00 66 18 126/84 95 06/17/22 20:00 98.6 F 70 18 134/88 98 06/17/22 14:31 70 18 136/82 99 06/17/22 14:24 98.2 F 65 17 138/82 99 Intake and Output 06/17/22 06/18/22 06/18/22 22:59 06:59 14:59 Intake Total 200 300 Balance 200 300 Intake: IV 300 Oral 200 Other: Voiding Method Toilet # Voids 2 2 1 PHYSICAL EXAMINATION: This is a 57-year-old male in no apparent distress at the time of my examination. HEENT: Head is atraumatic, normocephalic. Pupils are equal, round. Sclerae anicteric. Conjunctivae are clear. Mucous membranes of the mouth are moist. Neck is supple. There is no elevated jugular venous pressure. No carotid bruit is heard. CHEST EXAMINATION: Lungs reveal faint bibasilar crackles otherwise clear throughout. No wheezes or rhonchi. Respirations even and nonlabored. HEART EXAMINATION: Heart regular, positive S1 and S2. No S3. No S4. With this holosystolic murmur. ABDOMEN: Soft, nontender. Bowel sounds are heard. No organomegaly noted. EXTREMITIES: 2+ peripheral pulses with evidence of 1+ peripheral edema and no calf tenderness noted. NEUROLOGIC EXAMINATION: Patient is awake, alert and oriented x3. Results 06/18/22 08:28 06/18/22 08:28 CBC 06/18/22 Range/Units 08:28 WBC 3.4 L (3.8-10.6) k/uL RBC 3.50 L (4.30-5.90) m/uL Hgb 10.7 L (13.0-17.5) gm/dL Hct 33.3 L (39.0-53.0) % Plt Count 122 L (150-450) k/uL Comprehensive Metabolic Panel 06/17/22 06/17/22 06/18/22 Range/Units 12:45 18:30 08:28 Sodium 134 L 137 (137-145) mmol/L Potassium 5.7 H 5.7 H 5.7 H (3.5-5.1) mmol/L Chloride 106 106 (98-107) mmol/L Carbon Dioxide 22 25 (22-30) mmol/L BUN 61 H 62 H (9-20) mg/dL Creatinine 5.91 H 6.10 H (0.66-1.25) mg/dL Glucose 80 114 H (74-99) mg/dL Calcium 7.2 L 7.4 L (8.4-10.2) mg/dL Current Medications Generic Name Dose Route Start Last Admin Trade Name Freq PRN Reason Stop Dose Admin Acetaminophen 650 mg 06/17/22 12:25 Acetaminophen Tab 325 Mg Tab PO Q6HR PRN Mild Pain or Fever > 100.5 Hydrocodone Bitart/Acetaminophen 1 each 06/17/22 12:25 Hydrocodone/Apap 5-325mg 1 Each Tab PO Q4HR PRN Moderate Pain (Scale 4 to 6) Aspirin 81 mg 06/18/22 09:00 06/18/22 08:10 Aspirin 81 Mg PO Not Given DAILY [facility] Carvedilol 12.5 mg 06/17/22 17:30 06/18/22 06:40 Carvedilol 12.5 Mg Tab PO 12.5 mg AC-BID HIEU Administration Cholecalciferol 25 mcg 06/18/22 09:00 06/18/22 08:11 Cholecalciferol 25 Mcg (1000 Iu) Tablet PO Not Given DAILY [facility] Furosemide 80 mg 06/17/22 15:42 06/18/22 08:11 Furosemide 10 Mg/Ml 10 Ml Vial IV Not Given Q12HR [facility] Peritoneal Dialysis Solution 50 g in 2,000 mls @ 0 mls/hr 06/17/22 18:00 06/18/22 10:15 Delflex With 2.5% Dextrose (2,000 Ml) INTRAPERIT Not Given Q6HR [facility] Protocol As Directed Ceftriaxone Sodium 1 gm/ 50 mls @ 100 mls/hr 06/17/22 16:15 06/18/22 08:11 Sodium Chloride IVPB Not Given Q24HR [facility] Protocol Insulin Aspart 0.01 unit 06/17/22 12:30 06/17/22 13:11 Insulin Aspart (For Pump) 100 Unit/Ml Vial SQ-PUMP 0.01 unit CONTINUOUS HIEU Administration Morphine Sulfate 4 mg 06/17/22 12:25 06/18/22 08:13 Morphine Sulfate 4 Mg/Ml Syringe IVP 4 mg Q4HR PRN Administration Severe Pain (Scale 7 to 10) Naloxone HCl 0.2 mg 06/17/22 12:25 Naloxone 0.4 Mg/Ml 1 Ml Vial IV Q2M PRN Opioid Reversal Tamsulosin HCl 0.8 mg 06/17/22 12:30 06/18/22 08:13 Tamsulosin 0.4 Mg Cap.Er.24h PO 0.8 mg DAILY HIEU Administration Zinc Sulfate 220 mg 06/18/22 09:00 06/18/22 08:13 Zinc Sulfate 220 Mg Cap PO 220 mg DAILY HIEU Administration Intake and Output 06/17/22 06/18/22 06/18/22 22:59 06:59 14:59 Intake Total 200 300 Balance 200 300 Intake: IV 300 Oral 200 Other: Voiding Method Toilet # Voids 2 2 1 06/18/22 08:28 06/18/22 08:28 Assessment and Plan Assessment: #1 renal stone with evidence of hydronephrosis, status post lithotripsy #2 ischemic cardiomyopathy status post AICD #3 CAD status post CABG in 2006 with subsequent PCI of the grafts #4 end-stage renal disease on peritoneal dialysis #5 hypertension #6 hyperlipidemia on Praluent #7 diabetes, insulin-dependent Plan: From cardiology's perspective patient does not appear to be in acute heart failure. No need for cardiac workup at this time as patient has recently had this done as an outpatient with his primary appeals reviewer veteran. From our standpoint patient be discharged home and follow-up with his primary appeals reviewer veteran as an outpatient. PHARM TECH note has been reviewed, I agree with a documented findings and plan of care. Patient was seen and examined.
--- NOTE | 2022-06-18 12:59 | P.DS ---
Providers Date of admission: 06/17/22 13:24 Expected date of discharge: 06/18/22 Attending physician: Connie Puckett MD Consults: 06/17/22 12:27 Consult Physician Routine Consulting Provider: Kishor Pickett Consult Reason/Comments: ELPIDIO with hyperkalemia, peritoneal dialysis Do you want consulting provider notified?: Yes 06/17/22 12:28 Consult Physician Routine Consulting Provider: Sukhdeep Neff Consult Reason/Comments: impacted ureteral stone with hydronephrosis Do you want consulting provider notified?: Yes 06/17/22 14:22 Consult Physician Routine Consulting Provider: Aniyah Rojas Consult Reason/Comments: reported EF 18-20%, single lead ICD Do you want consulting provider notified?: Yes Primary care physician: Physician Nonstaff Hospital Course: End-stage renal disease with hyperkalemia Hydronephrosis Acute on chronic systolic and diastolic combined heart failure, ejection fraction 18-20% Diabetes, type I Hypertension Hyperlipidemia 57-year-old man with medical history of end-stage renal disease on peritoneal dialysis, type 1 diabetes, hypertension, hyperlipidemia, systolic heart failure with ejection fraction of 18-28% (reported) with a single lead AICD presented for evaluation of flank pain. In the emergency room, patient was afebrile, 140/81, heart rate 60, 99% on room air. CBC was remarkable for anemia down to 11.1, which is baseline, as well as platelets of 125 which are baseline. Chemistries were concerning for potassium of 6.1, BUN of 62, creatinine of 5.73. Liver function tests are unremarkable. BNP is 16,000. Troponin is 0.028. UA showed 1+ protein, large blood, moderate leukocyte esterase, 168 red blood cells, 6 white blood cells, rare bacteria. Renal ultrasound showed moderate to severe left-sided hydronephrosis. KUB did not identify a stone, but did show scattered pelvic phleboliths. Chest x-ray showed increased bilateral interstitial markings in a batwing pattern, reviewed by admitting hospitalist, favoring early heart failure. EKG shows normal sinus rhythm with first-degree AV block, left bundle branch block with left axis deviation, right bundle sukhjinder block as well, occasional PVCs, reviewed by admitting hospitalist. Case discussed with emergency room physician and decision was made to admit the patient to the medical floor with telemetry for further management. Patient was given calcium gluconate, D50/insulin, lokelma after discussion with nephrology, with plans to repeat the BMP. The potassium returned on 4 hour repeat with a value of 5.7. Peritoneal dialysis orders were placed after discussion with nephrology. The patient subsequently received a second round of calcium gluconate, D50/insulin, lokelma. The case was also discussed with urology over the phone, who recommended patients stone removed the following morning. Patient underwent cystoscopy with laser lithotripsy for stone removal. No nephroureteral stent was required. Patient received ceftriaxone for 2 days and was discharged with an additional 3 days of Ceftin ear. Patient will follow-up with urology, nephrology. He'll be discharged home with instructions to complete peritoneal dialysis today and have repeat labs done on Monday. I spent 40 minutes coordinating this discharge, discharge date 06/18 Gen: in no apparent distress, resting comfortably in bed Eyes: PERRL, no scleral injection or icterus HENT: normocephalic, atraumatic, good hearing acuity, moist mucous membranes Neck: no tracheal deviation, full range of motion Resp: good air exchange, breathing comfortably with no accessory muscle use, no tactile fremitus, bilateral crackles CVS: good distal perfusion x 4, bilateral 1-2+ pitting edema, regular rate and rhythm with systolic blowing murmur GI: soft, NTTP, ND, no hepatosplenomegaly, peritoneal dialysis catheter present : no suprapubic tenderness, no CVAT, zavala catheter not present MSK: no clubbing, no cyanosis, no noted contractures of extremities Skin: no noted rashes, petechiae; temperature of skin is appropriate Neuro: moving all extremities without signs of weakness, CN II-XII intact Psych: cooperative, euthymic mood, insight and judgment intact Patient Condition at Discharge: Good Plan - Discharge Summary Discharge Rx Participant: Yes New Discharge Prescriptions: New Furosemide [Lasix] 40 mg PO DAILY #30 tablet Acetaminophen Tab [Tylenol] 650 mg PO Q6HR PRN tab PRN Reason: Mild Pain Or Fever > 100.5 Cefdinir [Omnicef] 300 mg PO Q12HR #6 capsule Continue Nitroglycerin Sl Tabs [Nitrostat] 0.4 mg SL Q5M PRN PRN Reason: Chest Pain Aspirin EC [Ecotrin Low Dose] 81 mg PO DAILY Insulin Aspart (For Pump) [NovoLOG (For Pump)] 0.01 unit SQ-PUMP CONTINUOUS carvediloL 12.5 mg PO BID Alirocumab [Praluent Pen] 150 mg SQ Q14D Zinc Gluconate [Zinc] 50 mg PO DAILY Cholecalciferol [Vitamin D3 (25 Mcg = 1000 Iu)] 25 mcg PO DAILY Enalapril [Vasotec] 5 mg PO BID Tamsulosin [Flomax] 0.4 mg PO DAILY #14 cap HYDROcodone/APAP 5-325MG [[place] 5-325] 1 tab PO Q6HR PRN 3 Days #12 tab PRN Reason: Pain Ondansetron Odt [Zofran ODT] 4 mg PO Q8HR PRN #20 tab PRN Reason: Nausea Discontinued Ketorolac [Toradol] 10 mg PO Q6HR #30 tab Discharge Medication List Aspirin EC [Ecotrin Low Dose] 81 mg PO DAILY 10/14/19 [History] Insulin Aspart (For Pump) [NovoLOG (For Pump)] 0.01 unit SQ-PUMP CONTINUOUS 10/14/19 [History] Nitroglycerin Sl Tabs [Nitrostat] 0.4 mg SL Q5M PRN 10/14/19 [History] carvediloL 12.5 mg PO BID 10/14/19 [History] Alirocumab [Praluent Pen] 150 mg SQ Q14D 12/23/19 [History] Cholecalciferol [Vitamin D3 (25 Mcg = 1000 Iu)] 25 mcg PO DAILY 04/07/20 [History] Zinc Gluconate [Zinc] 50 mg PO DAILY 04/07/20 [History] Enalapril [Vasotec] 5 mg PO BID 09/18/21 [History] HYDROcodone/APAP 5-325MG [[place] 5-325] 1 tab PO Q6HR PRN 3 Days #12 tab 06/15/22 [Rx] Ondansetron Odt [Zofran ODT] 4 mg PO Q8HR PRN #20 tab 06/15/22 [Rx] Tamsulosin [Flomax] 0.4 mg PO DAILY #14 cap 06/15/22 [Rx] Acetaminophen Tab [Tylenol] 650 mg PO Q6HR PRN tab 06/18/22 [Rx] Cefdinir [Omnicef] 300 mg PO Q12HR #6 capsule 06/18/22 [Rx] Furosemide [Lasix] 40 mg PO DAILY #30 tablet 06/18/22 [Rx] Follow up Appointment(s)/Referral(s): Sukhdeep Neff MD [STAFF PHYSICIAN] - 1 Week (tell them you were discharged from [facility] 06/18 and had a cystoscopy with lithotripsy. ) Nonstaff,Physician [Primary Care Provider] - 1-2 days ([facility]- tell them you were discharged from [facility] 06/18 and had a cystoscopy with lithotripsy. ) Patient Instructions/Handouts: *Surgery [facility] - Cystoscopy Discharge Instructions Activity/Diet/Wound Care/Special Instructions: schedule appointment with your kidney doctor. Discharge Disposition: HOME SELF-CARE
--- NOTE | 2022-06-18 14:24 | P.NPCON ---
History of Present Illness - Reason for Consult Consult date: 06/18/22 end stage renal disease - Chief Complaint Flank pain. - History of Present Illness 37-year-old gentleman hemodialysis on peritoneal dialysis secondary to diabetic nephropathy. Coming to the hospital with left flank pain. He has history of kidney stones. Workup showed left hydronephrosis on renal ultrasound. He also missed dialysis. Also on admission potassium was 6.1, medically managed. Po tassium improved to 5.7. He underwent cystoscopy for the evaluation and no stent was placed. He declined CAPD, he only does cycler at home. He follows with Dr. goncalves as outpatient Review of Systems Constitutional: Reports as per HPI Past Medical History Past Medical History: Heart Failure, Diabetes Mellitus, Hypertension, Renal Disease Additional Past Medical History / Comment(s): CHF. peritoneal port in abdomen. stage 4 kidney failure. History of Any Multi-Drug Resistant Organisms: None Reported Past Surgical History: Coronary Bypass/CABG, Heart Catheterization With Stent Additional Past Surgical History / Comment(s): Port in abdomen. X6. Defibrillator. Hernia Repair - inguinal Past Anesthesia/Blood Transfusion Reactions: No Reported Reaction Date of Last Stent Placement:: 2010 Type of Cardiac Device: AICD Device Placement Date:: 2007 Past Psychological History: No Psychological Hx Reported Smoking Status: Never smoker Past Alcohol Use History: None Reported Past Drug Use History: None Reported Medications and Allergies Home Medications Medication Instructions Recorded Confirmed Type Aspirin EC [Ecotrin Low Dose] 81 mg PO DAILY 10/14/19 06/17/22 History Insulin Aspart (For Pump) [NovoLOG 0.01 unit SQ-PUMP CONTINUOUS 10/14/19 06/17/22 History (For Pump)] Nitroglycerin Sl Tabs [Nitrostat] 0.4 mg SL Q5M PRN 10/14/19 06/17/22 History carvediloL 12.5 mg PO BID 10/14/19 06/17/22 History Alirocumab [Praluent Pen] 150 mg SQ Q14D 12/23/19 06/17/22 History Cholecalciferol [Vitamin D3 (25 25 mcg PO DAILY 04/07/20 06/17/22 History Mcg = 1000 Iu)] Zinc Gluconate [Zinc] 50 mg PO DAILY 04/07/20 06/17/22 History Enalapril [Vasotec] 5 mg PO BID 09/18/21 06/17/22 History HYDROcodone/APAP 5-325MG [[place] 1 tab PO Q6HR PRN 3 Days #12 tab 06/15/22 06/17/22 Rx 5-325] Ondansetron Odt [Zofran ODT] 4 mg PO Q8HR PRN #20 tab 06/15/22 06/17/22 Rx Tamsulosin [Flomax] 0.4 mg PO DAILY #14 cap 06/15/22 06/17/22 Rx Acetaminophen Tab [Tylenol] 650 mg PO Q6HR PRN tab 06/18/22 Rx Cefdinir [Omnicef] 300 mg PO Q12HR #6 capsule 06/18/22 Rx Furosemide [Lasix] 40 mg PO DAILY #30 tablet 06/18/22 Rx Allergies Allergy/AdvReac Type Severity Reaction Status Date / Time fish oil AdvReac Chest Pain Verified 06/17/22 11:57 omega-3 acid ethyl esters AdvReac Chest Pain Verified 06/17/22 11:57 [From Lovaza] promethazine [From Phenergan] AdvReac Hallucinati Verified 06/17/22 11:57 ons Physical Exam Vitals: Vital Signs Temp Pulse Pulse Resp BP BP Pulse Ox 06/18/22 11:23 54 L 16 142/65 100 06/18/22 11:08 56 L 14 136/66 100 06/18/22 10:53 56 L 16 128/68 100 06/18/22 10:38 96.8 F L 56 L 18 142/67 100 06/18/22 08:00 97.8 F 58 L 18 115/73 99 06/18/22 07:42 95 06/18/22 02:00 66 18 126/84 95 06/17/22 20:00 98.6 F 70 18 134/88 98 06/17/22 14:31 70 18 136/82 99 06/17/22 14:24 98.2 F 65 17 138/82 99 Intake and Output 06/17/22 06/18/22 06/18/22 22:59 06:59 14:59 Intake Total 200 300 Balance 200 300 Intake: IV 300 Oral 200 Other: Voiding Method Toilet # Voids 2 2 1 No acute distress S1-S2 heard Lungs clear No edema Results - Lab Results Most recent lab results Calcium 7.4 mg/dL (8.4-10.2) L 06/18/22 08:28 Magnesium 2.2 mg/dL (1.6-2.3) 06/18/22 08:28 06/18/22 08:28 06/18/22 08:28 Assessment and Plan Assessment: #1 hyperkalemia secondary to missed dialysis. #2 left flank pain with hydronephrosis secondary to ureteral stone. #3 ESRD on peritoneal dialysis. 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 Plan: #1 hyperkalemia was treated medically. #2 he refused CAPD in the hospital. He only does CCPD, and hospital does not have the machine. #3 status post cystoscopy. #4 stable from nephrology for discharge to do dialysis at home. Advised to hold onto enalapril.
== END 2022-06-18 14:08 | disposition home or self-care (01) | DRG 999 ==
LOC: EC 08:54 → 4SSUR 13:24 → 5NMEDONC 13:49 → 3SCARD 15:38
PROVIDERS: ADMIT Internal Medicine; ATTEND Internal Medicine
PROC: 0WCR8ZZ Extirpation of Matter from Genitourinary Tract, Via Natural or Artificial Opening Endoscopic (ICD-10-PCS; principal; 2022-06-18 09:30)
DX: I13.2 Hypertensive heart and chronic kidney disease with heart failure and with stage 5 chronic kidney disease, or end stage renal disease (principal); I25.5 Ischemic cardiomyopathy; I44.7 Left bundle-branch block, unspecified; I44.0 Atrioventricular block, first degree; I50.43 Acute on chronic combined systolic (congestive) and diastolic (congestive) heart failure; I25.2 Old myocardial infarction; D63.1 Anemia in chronic kidney disease; E10.22 Type 1 diabetes mellitus with diabetic chronic kidney disease; E78.5 Hyperlipidemia, unspecified; N18.6 End stage renal disease; E87.5 Hyperkalemia; I25.10 Atherosclerotic heart disease of native coronary artery without angina pectoris; Z95.1 Presence of aortocoronary bypass graft; E83.9 Disorder of mineral metabolism, unspecified; Z99.2 Dependence on renal dialysis; N13.2 Hydronephrosis with renal and ureteral calculous obstruction; N17.9 Acute kidney failure, unspecified; N50.89 Other specified disorders of the male genital organs; Z79.4 Long term (current) use of insulin; Z95.810 Presence of automatic (implantable) cardiac defibrillator; Z96.41 Presence of insulin pump (external) (internal); Z87.442 Personal history of urinary calculi; Z79.899 Other long term (current) drug therapy; Z79.82 Long term (current) use of aspirin; Z28.310 Unvaccinated for COVID-19; Z28.21 Immunization not carried out because of patient refusal
CPT/HCPCS: 36415; 51798; 71046; 74018; 74176; 76770; 80048; 80053; 81001; 82365; 82550; 82553; 83735; 83880; 84132; 84439; 84443; 84481; 84484; 85025; 93005; 94760

== ENCOUNTER 2022-06-19 13:35 | Emergency (ER) | payer MEDICARE, OTHER ==
[2022-06-19 14:00] VITALS: BP 115/65; PULSE 60; RESP 18; TEMP 96.9
--- NOTE | 2022-06-19 14:22 | ED ---
General Adult HPI - General Chief complaint: Recheck/Abnormal Lab/Rx Stated complaint: post op Time Seen by Provider: 06/19/22 14:21 Source: patient, RN notes reviewed Mode of arrival: ambulatory Limitations: no limitations - History of Present Illness Initial comments: 57-year-old male who is one day status post lithotripsy presents to the emergency department with chief complaint of worsening left flank pain. He reports that the pain radiates to his left lower quadrant. He believes that he is retaining fluid and reports a 4 pound weight gain within the last "hours." He believes that his urine is not taking into his bladder properly and that is accumulating in his abdomen. He reports hematuria. He reports that he is a peritoneal dialysis patient and that he gets peritoneal dialysis at home every other day, he was last dialyzed last night.. He denies any fever, chills, myalgia, cough, chest pain, palpitations, abdominal pain, nausea, vomiting, diarrhea. - Related Data Home Medications Medication Instructions Recorded Confirmed Aspirin EC [Ecotrin Low Dose] 81 mg PO DAILY 10/14/19 06/19/22 Insulin Aspart (For Pump) [NovoLOG 0.01 unit SQ-PUMP CONTINUOUS 10/14/19 06/19/22 (For Pump)] Nitroglycerin Sl Tabs [Nitrostat] 0.4 mg SL Q5M PRN 10/14/19 06/19/22 carvediloL 12.5 mg PO BID 10/14/19 06/19/22 Alirocumab [Praluent Pen] 150 mg SQ Q14D 12/23/19 06/19/22 Zinc Gluconate [Zinc] 50 mg PO DAILY 04/07/20 06/19/22 Enalapril [Vasotec] 5 mg PO BID 09/18/21 06/19/22 Cholecalciferol [Vitamin D3 (25 25 mcg PO DAILY 06/19/22 06/19/22 Mcg = 1000 Iu)] Previous Rx's Medication Instructions Recorded HYDROcodone/APAP 5-325MG [[place] 1 tab PO Q6HR PRN 3 Days #12 tab 06/15/22 5-325] Ondansetron Odt [Zofran ODT] 4 mg PO Q8HR PRN #20 tab 06/15/22 Tamsulosin [Flomax] 0.4 mg PO DAILY #14 cap 06/15/22 Acetaminophen Tab [Tylenol] 650 mg PO Q6HR PRN tab 06/18/22 Cefdinir [Omnicef] 300 mg PO Q12HR #6 capsule 06/18/22 Furosemide [Lasix] 40 mg PO DAILY #30 tablet 06/18/22 Cephalexin [Keflex] 500 mg PO Q6HR #40 cap 06/19/22 Allergies Allergy/AdvReac Type Severity Reaction Status Date / Time fish oil AdvReac Chest Pain Verified 06/19/22 17:07 omega-3 acid ethyl esters AdvReac Chest Pain Verified 06/19/22 17:07 [From Lovaza] promethazine [From Phenergan] AdvReac Hallucinati Verified 06/19/22 17:07 ons Review of Systems ROS Statement: Those systems with pertinent positive or pertinent negative responses have been documented in the HPI. ROS Other: All systems not noted in ROS Statement are negative. Past Medical History Past Medical History: Heart Failure, Diabetes Mellitus, Hypertension, Renal Disease Additional Past Medical History / Comment(s): CHF. peritoneal port in abdomen. stage 4 kidney failure. History of Any Multi-Drug Resistant Organisms: None Reported Past Surgical History: Coronary Bypass/CABG, Heart Catheterization With Stent Additional Past Surgical History / Comment(s): Port in abdomen. X6. Defibrillator. Hernia Repair - inguinal. kidney stone remval Past Anesthesia/Blood Transfusion Reactions: No Reported Reaction Date of Last Stent Placement:: 2010 Type of Cardiac Device: AICD Device Placement Date:: 2007 Past Psychological History: No Psychological Hx Reported Smoking Status: Never smoker Past Alcohol Use History: None Reported Past Drug Use History: None Reported General Exam Limitations: no limitations General appearance: alert, in no apparent distress Head exam: Present: atraumatic, normocephalic, normal inspection Eye exam: Present: normal appearance, PERRL, EOMI. Absent: scleral icterus, conjunctival injection, periorbital swelling ENT exam: Present: normal exam, mucous membranes moist Neck exam: Present: normal inspection. Absent: tenderness, meningismus, lymphadenopathy Respiratory exam: Present: normal lung sounds bilaterally. Absent: respiratory distress, wheezes, rales, rhonchi, stridor Cardiovascular Exam: Present: regular rate, normal rhythm, normal heart sounds. Absent: systolic murmur, diastolic murmur, rubs, gallop, clicks GI/Abdominal exam: Present: soft, normal bowel sounds, other (Peritoneal Dialysis port). Absent: distended, tenderness, guarding, rebound, rigid Extremities exam: Present: normal inspection, full ROM, normal capillary refill, pedal edema (1+ ). Absent: tenderness, joint swelling, calf tenderness Back exam: Present: normal inspection Neurological exam: Present: alert, oriented X3, CN II-XII intact Psychiatric exam: Present: normal affect, normal mood Skin exam: Present: warm, dry, intact, normal color. Absent: rash Course Vital Signs 06/19/22 13:56 Temperature 96.9 F L Pulse Rate 60 Respiratory 18 Rate Blood Pressure 115/65 O2 Sat by Pulse 99 Oximetry - Reevaluation(s) Reevaluation #1: 06/19/22 14:[address] walton who recommends renal ultrasound and basic lab wor k. Reevaluation #2: 06/19/22 16:24 Patient reevaluated. Patient reports symptomatic relief status post morphine. Patient updated on awaiting additional lab tests and imaging results. Reevaluation #3: 06/19/22 17:[address] walton. Who believes patient can be discharged and he will follow up with him outpatient he recommends starting him on Keflex. EKG Findings - EKG Comments: EKG Findings:: I interpreted the following: EKG performed at 15:49. Rate 56 bpm and his sinus bradycardia with left axis deviation and a left bundle branch block. SC interval 198, QRS duration 173, QT/QTc 512/503 Medical Decision Making - Medical Decision Making Was pt. sent in by a medical professional or institution (, PA, OSTOMY NURSE, urgent care, hospital, or long term...) When possible be specific @ -[No] Did you speak to anyone other than the patient for history (EMS, parent, family, police, friend...)? What history was obtained from this source @ -[No] Did you review nursing and triage notes (agree or disagree)? Why? @ -[I reviewed and agree with nursing and triage notes] Were old charts reviewed (outside hosp., previous admission, EMS record, old EKG, old radiological studies, urgent care reports/EKG's, long term records)? Report findings @ -[No old charts were reviewed] Differential Diagnosis (chest pain, altered mental status, abdominal pain women, abdominal pain men, vaginal bleeding, weakness, fever, dyspnea, syncope, headache, dizziness, GI bleed, back pain, seizure, CVA, palpatations, mental health)? @ -[not applicable] EKG interpreted by me (3pts min.). @ -[As above] X-rays interpreted by me (1pt min.). @ -[None done] CT interpreted by me (1pt min.). @ -[None done] U/S interpreted by me (1pt. min.). @ -[None done] What testing was considered but not performed or refused? (CT, X-rays, U/S, labs)? Why? @ -[None] What meds were considered but not given or refused? Why? @ -[None] Did you discuss the management of the patient with other professionals (professionals i.e. , PA, OSTOMY NURSE, lab, RT, psych nurse, social work therapist, adult education professional, teacher, college service officer, case operator)? Give summary @ -East discussed with Dr. west, urologist who believes the patient is stable for discharge and will follow-up with him in his office this week. Was smoking cessation discussed for >3mins.? @ -[No] Was critical care preformed (if so, how long)? @ -[No] Were there social determinants of health that impacted care today? How? (Homelessness, low income, unemployed, alcoholism, drug addiction, transportation, low edu. Level, literacy, decrease access to med. care, care home, rehab)? @ -[No] Was there de-escalation of care discussed even if they declined (Discuss DNR or withdrawal of care, Hospice)? DNR status @ -[No] What co-morbidities impacted this encounter? (DM, HTN, Smoking, COPD, CAD, Cancer, CVA, ARF, Chemo, Hep., AIDS, mental health diagnosis, sleep apnea, morbid obesity)? @ -[None] Was patient admitted / discharged? Hospital course, mention meds given and route, prescriptions, significant lab abnormalities, going to OR and other pertinent info. @ 37-year-old male presents the emergency department with a chief complaint of postop pain. Patient had a thorough history and physical performed while in the emergency department. Physical exam is essentially unremarkable heart rate regular rate and rhythm, lungs clear to auscultation bilaterally abdomen is soft and nontender. Peritoneal dialysis port remains intact. There is no CVA tenderness. Mild bilateral pedal edema is appreciated. Patient had a full workup and imaging performed. WBCs 5.6, hemoglobin 10.4, PTT 10.9, INR 1.0 sodium 133, K 5.6, BUN 68, creatinine 6.71, BNP 19210 UA with large blood, small LE, >182 RBC's, occasional bacteria Chest x-ray reveals cardiomegaly with mild pulmonary vascular congestion correlate with BNP for CHF. With cardiac pacemaker in place. Ultrasound kidneys with persistent moderate to severe left hydronephrosis and increased parenchymal echogenicity within the cortical lining consistent with chronic medical renal disease. I discussed the results in detail with the patient. Questions and concerns were addressed. Patient was agreeable with the plan for discharge and discharged in stable condition. I discussed the case with Dr. west, urology who agrees and believes the patient is stable for discharge with recommended follow-up with his office in 1-2 days. He also recommends placing the patient on Keflex for prophylaxis. I discussed the case with Dr. Jesus Beal, [facility] who agrees with plan of care. Undiagnosed new problem with uncertain prognosis? @ -[No] Drug Therapy requiring intensive monitoring for toxicity (Heparin, Nitro, Insulin, Cardizem)? @ -[No] Were any procedures done? @ -[No] Diagnosis/symptom? @ -Post operative pain - L flank pain - Hx of ESRD -Hx of peritoneal dialysis Acute, or Chronic, or Acute on Chronic? @ acute on chronic Uncomplicated (without systemic symptoms) or Complicated (systemic symptoms)? @ uncomplicated ] Side effects of treatment? @ -[No] Exacerbation, Progression, or Severe Exacerbation? @ -[No] Poses a threat to life or bodily function? How? (Chest pain, USA, NM, pneumonia, PE, COPD, DKA, ARF, appy, cholecystitis, CVA, Diverticulitis, Homicidal, Suicidal, threat to staff... and all critical care pts) @ -[No] - Lab Data Result diagrams: 06/19/22 15:05 06/19/22 15:05 Lab Results 06/19/22 06/19/22 06/19/22 Range/Units 15:05 15:05 15:05 WBC 5.6 (3.8-10.6) k/uL RBC 3.38 L (4.30-5.90) m/uL Hgb 10.4 L (13.0-17.5) gm/dL Hct 31.6 L (39.0-53.0) % MCV 93.3 (80.0-100.0) fL MCH 30.9 (25.0-35.0) pg MCHC 33.1 (31.0-37.0) g/dL RDW 14.1 (11.5-15.5) % Plt Count 116 L (150-450) k/uL MPV 9.3 Neutrophils % 70 % Lymphocytes % 16 % Monocytes % 7 % Eosinophils % 5 % Basophils % 0 % Neutrophils # 3.9 (1.3-7.7) k/uL Lymphocytes # 0.9 L (1.0-4.8) k/uL Monocytes # 0.4 (0-1.0) k/uL Eosinophils # 0.3 (0-0.7) k/uL Basophils # 0.0 (0-0.2) k/uL PT (9.0-12.0) sec INR (<1.2) Sodium 133 L (137-145) mmol/L Potassium 5.6 H (3.5-5.1) mmol/L Chloride 101 (98-107) mmol/L Carbon Dioxide 24 (22-30) mmol/L Anion Gap 8 mmol/L BUN 68 H (9-20) mg/dL Creatinine 6.71 H (0.66-1.25) mg/dL Est GFR (CKD-EPI)AfAm 10 (>60 ml/min/1.73 sqM) Est GFR (CKD-EPI)NonAf 8 (>60 ml/min/1.73 sqM) Glucose 132 H (74-99) mg/dL Calcium 7.5 L (8.4-10.2) mg/dL Total Bilirubin 0.5 (0.2-1.3) mg/dL AST 21 (17-59) U/L ALT 28 (4-49) U/L Alkaline Phosphatase 81 (38-126) U/L Troponin I (0.000-0.034) ng/mL NT-Pro-B Natriuret Pep 79893 pg/mL Total Protein 5.4 L (6.3-8.2) g/dL Albumin 3.4 L (3.5-5.0) g/dL Urine Color Urine Appearance (Clear) Urine pH (5.0-8.0) Ur Specific [place] (1.001-1.035) Urine Protein (Negative) Urine Glucose (UA) (Negative) Urine Ketones (Negative) Urine Blood (Negative) Urine Nitrite (Negative) Urine Bilirubin (Negative) Urine Urobilinogen (<2.0) mg/dL Ur Leukocyte Esterase (Negative) Urine RBC (0-5) /hpf Urine WBC (0-5) /hpf Urine Bacteria (None) /hpf 06/19/22 06/19/22 06/19/22 Range/Units 15:15 15:32 15:32 WBC (3.8-10.6) k/uL RBC (4.30-5.90) m/uL Hgb (13.0-17.5) gm/dL Hct (39.0-53.0) % MCV (80.0-100.0) fL MCH (25.0-35.0) pg MCHC (31.0-37.0) g/dL RDW (11.5-15.5) % Plt Count (150-450) k/uL MPV Neutrophils % % Lymphocytes % % Monocytes % % Eosinophils % % Basophils % % Neutrophils # (1.3-7.7) k/uL Lymphocytes # (1.0-4.8) k/uL Monocytes # (0-1.0) k/uL Eosinophils # (0-0.7) k/uL Basophils # (0-0.2) k/uL PT 10.9 (9.0-12.0) sec INR 1.0 (<1.2) Sodium (137-145) mmol/L Potassium (3.5-5.1) mmol/L Chloride (98-107) mmol/L Carbon Dioxide (22-30) mmol/L Anion Gap mmol/L BUN (9-20) mg/dL Creatinine (0.66-1.25) mg/dL Est GFR (CKD-EPI)AfAm (>60 ml/min/1.73 sqM) Est GFR (CKD-EPI)NonAf (>60 ml/min/1.73 sqM) Glucose (74-99) mg/dL Calcium (8.4-10.2) mg/dL Total Bilirubin (0.2-1.3) mg/dL AST (17-59) U/L ALT (4-49) U/L Alkaline Phosphatase (38-126) U/L Troponin I 0.027 (0.000-0.034) ng/mL NT-Pro-B Natriuret Pep pg/mL Total Protein (6.3-8.2) g/dL Albumin (3.5-5.0) g/dL Urine Color Red Urine Appearance Cloudy (Clear) Urine pH 5.5 (5.0-8.0) Ur Specific [place] 1.017 (1.001-1.035) Urine Protein 2+ H (Negative) Urine Glucose (UA) Trace H (Negative) Urine Ketones Negative (Negative) Urine Blood Large H (Negative) Urine Nitrite Negative (Negative) Urine Bilirubin Negative (Negative) Urine Urobilinogen <2.0 (<2.0) mg/dL Ur Leukocyte Esterase Small H (Negative) Urine RBC >182 H (0-5) /hpf Urine WBC 6 H (0-5) /hpf Urine Bacteria Occasional H (None) /hpf Disposition Clinical Impression: Left flank pain, Post-op pain Disposition: HOME SELF-CARE Condition: Stable Additional Instructions: Return to the nearest emergency department if symptoms worsen or persist. Prescriptions: Cephalexin [Keflex] 500 mg PO Q6HR #40 cap Is patient prescribed a controlled substance at d/c from ED?: No Referrals: Nonstaff,Physician [Primary Care Provider] - 1-2 days Time of Disposition: 17:25
[2022-06-19] MEDS ORDERED: MORPHINE SULFATE 2 MG/ML SYRINGE IVP ONE (15:21)
[2022-06-19 15:35] LABS: Basophils % (A) 0 %; Eosinophils # (A) 0.3 k/uL (0-0.7); Eosinophils % (A) 5 %; HCT 31.6 % (39.0-53.0); HGB 10.4 gm/dL (13.0-17.5); Lymphocytes # (A) 0.9 k/uL (1.0-4.8); Lymphocytes % (A) 16 %; MCH 30.9 pg (25.0-35.0); MCHC 33.1 g/dL (31.0-37.0); MCV 93.3 fL (80.0-100.0); Mean Platelet Volume 9.3; Monocytes # (A) 0.4 k/uL (0-1.0); Monocytes % (A) 7 %; Neutrophils # (A) 3.9 k/uL (1.3-7.7); Neutrophils % (A) 70 %; Platelet Count 116 k/uL (150-450); RBC 3.38 m/uL (4.30-5.90); RDW 14.1 % (11.5-15.5); WBC 5.6 k/uL (3.8-10.6)
[2022-06-19 15:49] LABS: Albumin 3.4 g/dL (3.5-5.0); Calcium 7.5 mg/dL (8.4-10.2); Potassium 5.6 mmol/L (3.5-5.1); Total Bilirubin 0.5 mg/dL (0.2-1.3); Total Protein 5.4 g/dL (6.3-8.2)
[2022-06-19 16:00] LABS: Prothrombin Time 10.9 sec (9.0-12.0)
[2022-06-19 16:01] LABS: Appearance,Urine Cloudy (Clear); Bacteria,Urine Occasional /hpf; Bilirubin,Urine Negative (Negative); Blood,Urine Large (Negative); Color,Urine Red; Glucose,Urine (UA) Trace (Negative); Ketones,Urine Negative (Negative); Leukocyte Esterase,Urine Small (Negative); Nitrite,Urine Negative (Negative); PH, Urine 5.5 (5.0-8.0); Protein,Urine 2+ (Negative); RBC,Urine >182 /hpf (0-5); Specific Gravity,Urine 1.017 (1.001-1.035); Urobilinogen,Urine <2.0 mg/dL (<2.0); WBC,Urine 6 /hpf (0-5)
--- NOTE | 2022-06-19 16:05 | US ---
EXAMINATION TYPE: US kidneys/renal and bladder DATE OF EXAM: 06/19/2022 COMPARISON: Renal ultrasound 06/17/2022, CT abdomen pelvis 06/15/2022. CLINICAL HISTORY: surgery. Recent lithotripsy left side, pt having increased pain and hematuria EXAM MEASUREMENTS: Right Kidney: 9.5 x 3.3 x 3.8 cm Left Kidney: 11.9 x 5.4 x 4.6 cm Right Kidney: Cortical thinning, increased echogenicity. No hydronephrosis. Left Kidney: Redemonstration of moderate to severe hydronephrosis, similar to recent ultrasound of . Increased renal parenchymal echogenicity. Simple left renal cyst noted. Bladder: Within normal limits. Bilateral Jets seen: No IMPRESSION: 1. Persistent moderate to severe left hydronephrosis with cortical thinning. 2. Bilateral increased parenchymal echogenicity and cortical thinning, consistent with chronic medica l renal disease.
--- NOTE | 2022-06-19 17:06 | XR ---
EXAMINATION TYPE: XR chest 2V DATE OF EXAM: 06/19/2022 4:29 PM COMPARISON: Chest x-ray 06/17/2022 TECHNIQUE: XR chest 2V . CLINICAL INDICATION:Male, 57 years old with history of edema; FINDINGS: Lungs/Pleura: Hazy appearance of the right midlung and left lower lobe bilaterally suggestive of inte rstitial edema. No sizable pleural effusion. Fluid tracks along the right minor fissure. Pulmonary vascularity: Mild pulmonary vascular congestion. Heart/mediastinum: Cardiomediastinal silhouette is enlarged and stable. Postoperative changes are pr esent in the mediastinum. Single lead cardiac conduction device overlying the right hemithorax with l ead tips projecting over the right ventricle. Musculoskeletal: Multiple level degenerative disc disease changes seen throughout the spine. IMPRESSION: 1. Cardiomegaly and mild pulmonary vascular congestion. Correlate with BNP for congestive heart failu re. 2. Hazy airspace opacities likely component of interstitial edema.
== END 2022-06-19 18:15 | disposition home or self-care (01) ==
LOC: EC 13:35
DX: G89.18 Other acute postprocedural pain (principal); N13.30 Unspecified hydronephrosis; N28.1 Cyst of kidney, acquired; I13.2 Hypertensive heart and chronic kidney disease with heart failure and with stage 5 chronic kidney disease, or end stage renal disease; E11.22 Type 2 diabetes mellitus with diabetic chronic kidney disease; N18.2 Chronic kidney disease, stage 2 (mild); Z79.4 Long term (current) use of insulin; Z79.82 Long term (current) use of aspirin; Z79.899 Other long term (current) drug therapy; Z91.013 Allergy to seafood; Z88.8 Allergy status to other drugs, medicaments and biological substances; Z99.2 Dependence on renal dialysis
CPT/HCPCS: 36415; 93005; 83880; 80053; 84484; 85025; 85610; 81001; 71046; 76770; 99284; 96374; J2270

== ENCOUNTER 2022-11-07 20:00 | Emergency (ER) | payer MEDICARE, OTHER ==
[2022-11-07 20:59] VITALS: RESP 16; TEMP 98.2
[2022-11-07] MEDS ORDERED: SODIUM CHLORIDE 0.9% 1,000 ML IV ONE (21:26)
[2022-11-07] MEDS ORDERED: MORPHINE SULFATE 4 MG/ML SYRINGE IVP STA (21:26)
[2022-11-07] MEDS ORDERED: TAMSULOSIN 0.4 MG CAP.ER.24H PO STA (21:26)
--- NOTE | 2022-11-07 21:29 | ED ---
General Adult HPI - General Chief complaint: Back Pain/Injury Stated complaint: back pain Time Seen by Provider: 11/07/22 21:19 Source: patient, RN notes reviewed Mode of arrival: ambulatory Limitations: no limitations - History of Present Illness Initial comments: 57-year-old male with a past medical history significant for nephrolithiasis presents to the emergency department with a chief complaint of left flank pain. Patient reports worsening left flank pain that started at 6 PM this evening. It does not radiate anywhere. He denies any fever, chills, nausea, vomiting, dysuria, hematuria. He feels like this when he has a kidney stone. Denies chest pain, shortness of breath. Patient is on peritoneal dialysis and dialyzes at home nightly. - Related Data Home Medications Medication Instructions Recorded Confirmed Aspirin EC [Ecotrin Low Dose] 81 mg PO DAILY 10/14/19 06/19/22 Insulin Aspart (For Pump) [NovoLOG 0.01 unit SQ-PUMP CONTINUOUS 10/14/19 06/19/22 (For Pump)] Nitroglycerin Sl Tabs [Nitrostat] 0.4 mg SL Q5M PRN 10/14/19 06/19/22 carvediloL 12.5 mg PO BID 10/14/19 06/19/22 Alirocumab [Praluent Pen] 150 mg SQ Q14D 12/23/19 06/19/22 Zinc Gluconate [Zinc] 50 mg PO DAILY 04/07/20 06/19/22 Enalapril [Vasotec] 5 mg PO BID 09/18/21 06/19/22 Cholecalciferol [Vitamin D3 (25 25 mcg PO DAILY 06/19/22 06/19/22 Mcg = 1000 Iu)] Previous Rx's Medication Instructions Recorded HYDROcodone/APAP 5-325MG [[place] 1 tab PO Q6HR PRN 3 Days #12 tab 06/15/22 5-325] Ondansetron Odt [Zofran ODT] 4 mg PO Q8HR PRN #20 tab 06/15/22 Tamsulosin [Flomax] 0.4 mg PO DAILY #14 cap 06/15/22 Acetaminophen Tab [Tylenol] 650 mg PO Q6HR PRN tab 06/18/22 Cefdinir [Omnicef] 300 mg PO Q12HR #6 capsule 06/18/22 Furosemide [Lasix] 40 mg PO DAILY #30 tablet 06/18/22 Cephalexin [Keflex] 500 mg PO Q6HR #40 cap 06/19/22 Allergies Allergy/AdvReac Type Severity Reaction Status Date / Time fish oil AdvReac Chest Pain Verified 11/07/22 20:04 omega-3 acid ethyl esters AdvReac Chest Pain Verified 11/07/22 20:04 [From Lovaza] promethazine [From Phenergan] AdvReac Hallucinati Verified 11/07/22 20:04 ons Review of Systems ROS Statement: Those systems with pertinent positive or pertinent negative responses have been documented in the HPI. ROS Other: All systems not noted in ROS Statement are negative. Past Medical History Past Medical History: Heart Failure, Diabetes Mellitus, Hypertension, Renal Disease Additional Past Medical History / Comment(s): CHF. peritoneal port in abdomen. stage 4 kidney failure. History of Any Multi-Drug Resistant Organisms: None Reported Past Surgical History: Coronary Bypass/CABG, Heart Catheterization With Stent Additional Past Surgical History / Comment(s): Port in abdomen. X6. Defibrillator. Hernia Repair - inguinal. kidney stone remval. Open heart Past Anesthesia/Blood Transfusion Reactions: No Reported Reaction Date of Last Stent Placement:: 2010 Type of Cardiac Device: AICD Device Placement Date:: 2007 Past Psychological History: No Psychological Hx Reported Smoking Status: Never smoker Past Alcohol Use History: None Reported Past Drug Use History: None Reported General Exam - General Exam Comments Initial Comments: General: Alert, in no acute distress Head: atraumatic normocephalic. Eyes PERRL, EOMI intact, mucous membranes moist Respiratory: Lungs clear to auscultation bilaterally Cardiovascular: Heart rate regular rate and rhythm Abdominal: Soft without guarding or rebound Extremities: Normal inspection with full range of motion and normal capillary refill Neuroogic: alert and oriented 3, CN II-XII intact, able to ambulate with steady gait Skin: warm dry and intact with normal color Limitations: no limitations Course Vital Signs 11/07/22 11/07/22 11/07/22 20:02 20:04 20:47 Temperature 98.5 F 98.2 F Pulse Rate 81 79 Respiratory 18 16 Rate Blood Pressure 144/83 136/83 O2 Sat by Pulse 98 99 98 Oximetry 06/19/23 06/19/23 06/19/23 21:00 21:30 22:00 Temperature Pulse Rate 78 80 Respiratory Rate Blood Pressure 136/83 127/85 139/84 O2 Sat by Pulse 99 98 Oximetry - Reevaluation(s) Reevaluation #1: 11/07/22 23:24 Case discussed with sound who agrees and accepts the patient for admission Reevaluation #2: 11/07/22 23:27 Patient reevaluated. Patient is refusing admission at this time. Patient agrees to sign out AGAINST MEDICAL ADVICE. Medical Decision Making - Medical Decision Making Was pt. sent in by a medical professional or institution (, [facility], PRODUCT SUPPORT CONSULTANT, urgent care, hospital, or [facility]...) When possible be specific @ -[No] Did you speak to anyone other than the patient for history (EMS, parent, family, police, friend...)? What history was obtained from this source @ -[No] Did you review nursing and triage notes (agree or disagree)? Why? @ -[I reviewed and agree with nursing and triage notes] Were old charts reviewed (outside hosp., previous admission, EMS record, old EKG, old radiological studies, urgent care reports/EKG's, [facility] records)? Report findings @ -[No old charts were reviewed] Differential Diagnosis (chest pain, altered mental status, abdominal pain women, abdominal pain men, vaginal bleeding, weakness, fever, dyspnea, syncope, headache, dizziness, GI bleed, back pain, seizure, CVA, palpatations, mental health, musculoskeletal)? @ -[not applicable] EKG interpreted by me (3pts min.). @ -[As above] X-rays interpreted by me (1pt min.). @ -[None done] CT interpreted by me (1pt min.). @ -CT abdomen and pelvis does not reveal any acute intra-abdominal process. No evidence of nephrolithiasis U/S interpreted by me (1pt. min.). @ -[None done] What testing was considered but not performed or refused? (CT, X-rays, U/S, labs)? Why? @ -[None] What meds were considered but not given or refused? Why? @ -[None] Did you discuss the management of the patient with other professionals (pr ofessionals i.e. , [facility]ERR[facility], PRODUCT SUPPORT CONSULTANT, lab, RT, psych nurse, oncology social worker, physical meteorologist, teacher, title officer, business case analyst)? Give summary @ -[No] Was smoking cessation discussed for >3mins.? @ -[No] Was critical care preformed (if so, how long)? @ -[No] Were there social determinants of health that impacted care today? How? (Homelessness, low income, unemployed, alcoholism, drug addiction, tra nsportation, low edu. Level, literacy, decrease access to med. care, correction, rehab)? @ -[No] Was there de-escalation of care discussed even if they declined (Discuss DNR or withdrawal of care, Hospice)? DNR status @ -[No] What co-morbidities impacted this encounter? (DM, HTN, Smoking, COPD, CAD, Cancer, CVA, ARF, Chemo, Hep., AIDS, mental health diagnosis, sleep apnea, morbid obesity)? @ -[None] Was patient admitted / discharged? Hospital course, mention meds given and route, prescriptions, significant lab abnormalities, going to OR and other pertinent info. @ -[AGAINST MEDICAL ADVICE. This 57-year-old male who presents the emergency department with flank pain. Patient had a thorough history and physical exam performed on the ED. Physical exam is essentially unremarkable. Heart rate regular rate and rhythm, lungs clear to auscultation bilaterally abdomen soft and nontender. Patient had lab work and imaging performed. CT does not reveal any evidence of nephrolithiasis however there is left hydronephrosis. It is my decision to admit the patient for further observation however patient verbalized that he did not want to stay and left AGAINST MEDICAL ADVICE. Undiagnosed new problem with uncertain prognosis? @ -[No] Drug Therapy requiring intensive monitoring for toxicity (Heparin, Nitro, Insulin, Cardizem)? @ -[No] Were any procedures done? @ -[No] Diagnosis/symptom? @ -Left Flank Pain Acute, or Chronic, or Acute on Chronic? @ -Acute Uncomplicated (without systemic symptoms) or Complicated (systemic symptoms)? @ -Uncomplicated Side effects of treatment? @ -[No] Exacerbation, Progression, or Severe Exacerbation? @ -[No] Poses a threat to life or bodily function? How? (Chest pain, USA, ID, pneumonia, PE, COPD, DKA, ARF, appy, cholecystitis, CVA, Diverticulitis, Homicidal, Suicidal, threat to staff... and all critical care pts) @ -Low likelihood - Lab Data Result diagrams: 11/07/22 21:44 11/07/22 21:44 Lab Results 11/07/22 11/07/22 11/07/22 Range/Units 21:44 21:44 21:44 WBC 4.8 (3.8-10.6) k/uL RBC 3.66 L (4.30-5.90) m/uL Hgb 11.1 L (13.0-17.5) gm/dL Hct 34.5 L (39.0-53.0) % MCV 94.2 (80.0-100.0) fL MCH 30.4 (25.0-35.0) pg MCHC 32.3 (31.0-37.0) g/dL RDW 14.9 (11.5-15.5) % Plt Count 249 (150-450) k/uL MPV 7.8 Neutrophils % 62 % Lymphocytes % 23 % Monocytes % 10 % Eosinophils % 3 % Basophils % 0 % Neutrophils # 3.0 (1.3-7.7) k/uL Lymphocytes # 1.1 (1.0-4.8) k/uL Monocytes # 0.5 (0-1.0) k/uL Eosinophils # 0.2 (0-0.7) k/uL Basophils # 0.0 (0-0.2) k/uL Sodium 137 (137-145) mmol/L Potassium 3.8 (3.5-5.1) mmol/L Chloride 99 (98-107) mmol/L Carbon Dioxide 30 (22-30) mmol/L Anion Gap 8 mmol/L BUN 43 H (9-20) mg/dL Creatinine 4.84 H (0.66-1.25) mg/dL Est GFR (CKD-EPI)AfAm 14 (>60 ml/min/1.73 sqM) Est GFR (CKD-EPI)NonAf 12 (>60 ml/min/1.73 sqM) Glucose 62 L (74-99) mg/dL Calcium 7.7 L (8.4-10.2) mg/dL Total Bilirubin 0.3 (0.2-1.3) mg/dL AST 31 (17-59) U/L ALT 21 (4-49) U/L Alkaline Phosphatase 94 (38-126) U/L Total Protein 5.6 L (6.3-8.2) g/dL Albumin 3.0 L (3.5-5.0) g/dL Urine Color Light Yellow Urine Appearance Clear (Clear) Urine pH 6.0 (5.0-8.0) Ur Specific [place] 1.006 (1.001-1.035) Urine Protein 1+ H (Negative) Urine Glucose (UA) Negative (Negative) Urine Ketones Negative (Negative) Urine Blood Trace H (Negative) Urine Nitrite Negative (Negative) Urine Bilirubin Negative (Negative) Urine Urobilinogen <2.0 (<2.0) mg/dL Ur Leukocyte Esterase Trace H (Negative) Urine RBC 1 (0-5) /hpf Urine WBC 4 (0-5) /hpf Urine Mucus Rare H (None) /hpf Disposition Clinical Impression: Hydronephrosis, Flank pain, CKD (chronic kidney disease) Disposition: LEFT AGAINST MEDICAL ADVICE Condition: Undetermined Is patient prescribed a controlled substance at d/c from ED?: No Referrals: Dotty Gibbs MD [Primary Care Provider] - 1-2 days Time of Disposition: 23:25
[2022-11-07 21:56] LABS: Basophils % (A) 0 %; Eosinophils # (A) 0.2 k/uL (0-0.7); Eosinophils % (A) 3 %; HCT 34.5 % (39.0-53.0); HGB 11.1 gm/dL (13.0-17.5); Lymphocytes # (A) 1.1 k/uL (1.0-4.8); Lymphocytes % (A) 23 %; MCH 30.4 pg (25.0-35.0); MCHC 32.3 g/dL (31.0-37.0); MCV 94.2 fL (80.0-100.0); Mean Platelet Volume 7.8; Monocytes # (A) 0.5 k/uL (0-1.0); Monocytes % (A) 10 %; Neutrophils % (A) 62 %; Platelet Count 249 k/uL (150-450); RBC 3.66 m/uL (4.30-5.90); RDW 14.9 % (11.5-15.5); WBC 4.8 k/uL (3.8-10.6)
[2022-11-07 21:58] LABS: Appearance,Urine Clear (Clear); Bilirubin,Urine Negative (Negative); Blood,Urine Trace (Negative); Color,Urine Light Yellow; Glucose,Urine (UA) Negative (Negative); Ketones,Urine Negative (Negative); Leukocyte Esterase,Urine Trace (Negative); Mucus,Urine Rare /hpf; Nitrite,Urine Negative (Negative); Protein,Urine 1+ (Negative); RBC,Urine 1 /hpf (0-5); Specific Gravity,Urine 1.006 (1.001-1.035); Urobilinogen,Urine <2.0 mg/dL (<2.0); WBC,Urine 4 /hpf (0-5)
[2022-11-07 22:07] LABS: ALT 21 U/L (4-49); AST 31 U/L (17-59); African American GFR (CKD) 14 (>60 ml/min/1.73 sqM); Alkaline Phosphatase 94 U/L (38-126); Anion Gap 8 mmol/L; Blood Urea Nitrogen 43 mg/dL (9-20); Calcium 7.7 mg/dL (8.4-10.2); Carbon Dioxide 30 mmol/L (22-30); Chloride 99 mmol/L (98-107); Glucose 62 mg/dL (74-99); Non-African American GFR(CKD) 12 (>60 ml/min/1.73 sqM); Potassium 3.8 mmol/L (3.5-5.1); Sodium 137 mmol/L (137-145); Total Bilirubin 0.3 mg/dL (0.2-1.3); Total Protein 5.6 g/dL (6.3-8.2)
--- NOTE | 2022-11-07 22:16 | CT ---
EXAMINATION TYPE: CT abdomen pelvis wo con CT DLP: 481 mGycm, Automated exposure control for dose reduction was used. DATE OF EXAM: 11/07/2022 10:01 PM COMPARISON: CT abdomen pelvis most recent from 06/15/2022 CLINICAL INDICATION:Male, 57 years old with history of r/out nephrolithiasis; Left side flank pain. S uspected kidney stone. Hx of kidney stones. TECHNIQUE: Axial CT of the abdomen and pelvis. Sagittal and coronal reformats were created on a [employer] workstation. Contrast used: mL of , (none if empty) Oral contrast used: without Oral Contrast (none if empty) FINDINGS: LOWER CHEST: The heart is enlarged for size there is coronary artery calcifications and aortic valve leaflet calcifications mitral valve annular calcifications and cardiac conduction leads. ABDOMEN LIVER: Unremarkable GALLBLADDER AND BILE DUCTS: Gallstone present. Extrahepatic biliary dilation. PANCREAS: Unremarkable. SPLEEN: Unremarkable. ADRENAL GLANDS: Unremarkable. KIDNEYS AND URETERS: No right hydronephrosis or obstructive atelectasis. There is left mild hydroneph rosis without evidence of obstructing calculus. No definitive left calculus visualized. PELVIS BLADDER: Unremarkable REPRODUCTIVE: Prostate is enlarged in size measuring 4.8 cm in transverse dimension. ABDOMEN & PELVIS STOMACH AND BOWEL: Small hiatal hernia. No evidence of bowel obstruction. PERITONEUM/RETROPERITONEUM: No evidence of pneumoperitoneum or free fluid. VASCULATURE: Moderate atherosclerotic calcifications are present throughout the abdominal aorta and i ts branches. No evidence of aortic aneurysm. MUSCULOSKELETAL: No acute osseous abnormalities. Mild disc degeneration changes are present throughou t the thoracolumbar spine. LYMPH NODES: No gross evidence for lymphadenopathy. SOFT TISSUE/ABDOMINAL WALL: Unremarkable IMPRESSION: 1. No definitive acute intra-abdominal process to explain the patient's left sided flank pain. 2. 3. Mild left hydronephrosis without evidence for obstructing calculus. Findings similar to prior exam on 06/15/2022. No definitive left renal calculus. 3. 2. Peritoneal Dialysis catheter in place. 4. Cholelithiasis. 5. Extrahepatic biliary dilation. Consider MRCP for complete evaluation.
[2022-11-07 22:29] VITALS: BP 139/84; PULSE 80
[2022-11-07] MEDS ORDERED: HYDROmorphone 0.5 MG/0.5 ML SYRINGE IVP STA (22:33)
== END 2022-11-07 23:39 | disposition left against medical advice (07) ==
LOC: EC 20:00
DX: N13.30 Unspecified hydronephrosis (principal); I13.0 Hypertensive heart and chronic kidney disease with heart failure and stage 1 through stage 4 chronic kidney disease, or unspecified chronic kidney disease; E11.22 Type 2 diabetes mellitus with diabetic chronic kidney disease; N18.4 Chronic kidney disease, stage 4 (severe); I50.9 Heart failure, unspecified; Z79.82 Long term (current) use of aspirin; Z79.4 Long term (current) use of insulin; Z79.899 Other long term (current) drug therapy; Z91.013 Allergy to seafood; Z88.8 Allergy status to other drugs, medicaments and biological substances; Z53.29 Procedure and treatment not carried out because of patient's decision for other reasons
CPT/HCPCS: 36415; 80053; 85025; 81001; 74176; 99284; 96374; 96375; 96361 ×2; J2270; J1170

== ENCOUNTER → 2022-12-23 | Outpatient (CLI) | payer MEDICARE ==
--- NOTE | 2022-12-23 09:24 | CT ---
EXAMINATION TYPE: CT brain wo con DATE OF EXAM: 12/23/2022 COMPARISON: None HISTORY: 57-year-old male G44.311, Z91.81, Acute post traumatic headache, intractable; history of fal ling TECHNIQUE: Examination was done in axial plane without intravenous contrast. Coronal and sagittal r econstructions performed. CT DLP: 1150.5 mGycm Automated exposure control for dose reduction was used. FINDINGS: There is no evidence of acute intracranial hemorrhage, acute ischemic changes, mass, mass-effect, or extra-axial fluid collection. There is no effacement of cerebral sulci or basal subarachnoid cister ns. There is no hydrocephalus. There is no midline shift. Estrada-white matter distinction is preserv ed. Atherosclerotic calcifications within the bilateral carotid siphons and also proximal V4 segments of the bilateral vertebral arteries. Trace mucosal thickening ethmoid air cells and maxillary sinuses. Orbits and globes are intact. Leftw gage nasal septal deviation. Mastoid air cells well pneumatized. IMPRESSION: No acute intracranial abnormality seen.
== END | disposition home or self-care (01) ==
LOC: RADCTMAIN 08:29
PROVIDERS: ATTEND General Practice
DX: G44.311 Acute post-traumatic headache, intractable (principal); Z91.81 History of falling
CPT/HCPCS: 70450

== ENCOUNTER 2023-01-28 11:06 | Observation (INO) | payer MEDICARE ==
[2023-01-28 11:15] LABS: Glucose,Whole Blood 47 mg/dL (70-110)
[2023-01-28 11:17] VITALS: RESP 18
--- NOTE | 2023-01-28 11:20 | ED ---
General Adult HPI - General Chief complaint: Syncope Stated complaint: Syncope Time Seen by Provider: 01/28/23 11:11 Source: patient, EMS, RN notes reviewed Mode of arrival: EMS Limitations: no limitations - History of Present Illness Initial comments: Patient is a pleasant 57-year-old male presenting to the emergency department with syncopal episode. Episode occurred just prior to arrival. A lawson felt lightheaded and felt his heart rate was slowing down. Patient then became unresponsive. This was witnessed by his who believes that his defi brillator went off. She did witness this once previously. Patient has had is deferred later go off twice previously. Patient only has mild nausea at this time otherwise has no significant complaints. Patient denies ever having chest pain. No dyspnea. Patient denies any injury. No weakness or confusion. - Related Data Home Medications Medication Instructions Recorded Confirmed Aspirin EC [Ecotrin Low Dose] 81 mg PO DAILY 10/14/19 06/19/22 Insulin Aspart (For Pump) [NovoLOG 0.01 unit SQ-PUMP CONTINUOUS 10/14/19 06/19/22 (For Pump)] Nitroglycerin Sl Tabs [Nitrostat] 0.4 mg SL Q5M PRN 10/14/19 06/19/22 carvediloL 12.5 mg PO BID 10/14/19 06/19/22 Alirocumab [Praluent Pen] 150 mg SQ Q14D 12/23/19 06/19/22 Zinc Gluconate [Zinc] 50 mg PO DAILY 04/07/20 06/19/22 Enalapril [Vasotec] 5 mg PO BID 09/18/21 06/19/22 Cholecalciferol [Vitamin D3 (25 25 mcg PO DAILY 06/19/22 06/19/22 Mcg = 1000 Iu)] Previous Rx's Medication Instructions Recorded HYDROcodone/APAP 5-325MG [[place] 1 tab PO Q6HR PRN 3 Days #12 tab 06/15/22 5-325] Ondansetron Odt [Zofran ODT] 4 mg PO Q8HR PRN #20 tab 06/15/22 Tamsulosin [Flomax] 0.4 mg PO DAILY #14 cap 06/15/22 Acetaminophen Tab [Tylenol] 650 mg PO Q6HR PRN tab 06/18/22 Cefdinir [Omnicef] 300 mg PO Q12HR #6 capsule 06/18/22 Furosemide [Lasix] 40 mg PO DAILY #30 tablet 06/18/22 Cephalexin [Keflex] 500 mg PO Q6HR #40 cap 06/19/22 Allergies Allergy/AdvReac Type Severity Reaction Status Date / Time fish oil AdvReac Chest Pain Verified 11/07/22 20:04 omega-3 acid ethyl esters AdvReac Chest Pain Verified 11/07/22 20:04 [From Lovaza] promethazine [From Phenergan] AdvReac Hallucinati Verified 11/07/22 20:04 ons Review of Systems ROS Statement: Those systems with pertinent positive or pertinent negative responses have been documented in the HPI. ROS Other: All systems not noted in ROS Statement are negative. Constitutional: Denies: fever Eyes: Denies: eye pain ENT: Denies: ear pain Respiratory: Denies: cough Cardiovascular: Denies: chest pain Endocrine: Denies: fatigue Gastrointestinal: Reports: nausea. Denies: abdominal pain Musculoskeletal: Denies: back pain Skin: Denies: rash Neurological: Denies: weakness Past Medical History Past Medical History: Heart Failure, Diabetes Mellitus, Hypertension, Renal Disease Additional Past Medical History / Comment(s): CHF. peritoneal port in abdomen. stage 4 kidney failure. History of Any Multi-Drug Resistant Organisms: None Reported Past Surgical History: Coronary Bypass/CABG, Heart Catheterization With Stent Additional Past Surgical History / Comment(s): Port in abdomen. X6. D efibrillator. Hernia Repair - inguinal. kidney stone remval. Open heart Past Anesthesia/Blood Transfusion Reactions: No Reported Reaction Date of Last Stent Placement:: 2010 Type of Cardiac Device: AICD Device Placement Date:: 2007 Past Psychological History: No Psychological Hx Reported Smoking Status: Never smoker Past Alcohol Use History: None Reported Past Drug Use History: None Reported General Exam Limitations: no limitations General appearance: alert, in no apparent distress Head exam: Present: normocephalic Eye exam: Present: normal appearance Neck exam: Present: normal inspection Respiratory exam: Present: normal lung sounds bilaterally Cardiovascular Exam: Present: regular rate, normal rhythm Expanded Peripheral pulses: 2+: Radial (R), Radial (L), Dorsalis Pedis (R), Dorsalis Pedis (L) GI/Abdominal exam: Present: soft. Absent: tenderness, pulsatile mass Extremities exam: Present: normal inspection. Absent: pedal edema, calf tenderness Neurological exam: Present: alert, oriented X3, CN II-XII intact. Absent: motor sensory deficit Expanded Motor strength exam: RUE: 5, LUE: 5, RLE: 5, LLE: 5 Eye Response: (4) open spontaneously Motor Response: (6) obeys commands Verbal Response: (5) oriented Psychiatric exam: Present: normal affect, normal mood Skin exam: Present: normal color Course Vital Signs 01/28/23 01/28/23 11:10 11:17 Pulse Rate 74 Pulse Rate [ 74 Station Installer ] Respiratory 18 Rate Blood Pressure 170/98 O2 Sat by Pulse 100 Oximetry EKG Findings - EKG Results: EKG: interpreted by ARCHIE (For screening AV block with a [place] of 271. Left axis. Left bundle branch block. Borderline changes in lead III. Previous EKG reviewed dated 06/19/2022), sinus rhythm Medical Decision Making - Medical Decision Making Was pt. sent in by a medical professional or institution (, PA, SEARCH ENGINE OPTIMIZATION STRATEGIST, urgent care, hospital, or senior living...) When possible be specific @ -No Did you speak to anyone other than the patient for history (EMS, parent, family, police, friend...)? What history was obtained from this source @ -I did speak with EMS who transported patient including transportation and their concern for EKG Did you review nursing and triage notes (agree or disagree)? Why? @ -I reviewed and agree with nursing and triage notes Were old charts reviewed (outside hosp., previous admission, EMS record, old EKG, old radiological studies, urgent care reports/EKG's, senior living records)? Report findings @ -Previous EKGs reviewed Differential Diagnosis (chest pain, altered mental status, abdominal pain women, abdominal pain men, vaginal bleeding, weakness, fever, dyspnea, syncope, headache, dizziness, GI bleed, back pain, seizure, CVA, palpatations, mental health, musculoskeletal)? @ -Differential Syncope: Valvular disease, hypertrophic cardiomyopathy, pulmonary embolism, tamponade, tachycardia, bradycardia, ME, hypovolemia, hemorrhage, dissection, anemia, intracranial hemorrhage, seizure, hypoglycemia, carbon monoxide poisoning, this is not meant to be an all-inclusive list. EKG interpreted by me (3pts min.). @ -As above Defibrillator interrogation with evidence of V. tach X-rays interpreted by me (1pt min.). @ -Chest x-ray shows cardiomegaly. Postop change. CT interpreted by me (1pt min.). @ -None done U/S interpreted by me (1pt. min.). @ -None done What testing was considered but not performed or refused? (CT, X-rays, U/S, labs)? Why? @ -None What meds were considered but not given or refused? Why? @ -None Did you discuss the management of the patient with other professionals (professionals i.e. , PA, SEARCH ENGINE OPTIMIZATION STRATEGIST, lab, RT, psych nurse, social group worker, seismic prospecting observer, teacher, community arts officer, pillowcase cleaner)? Give summary @ -Case was discussed with Dr. Lagunas, who will admit covering hospital call. Was smoking cessation discussed for >3mins.? @ -No Was critical care preformed (if so, how long)? @ -No Were there social determinants of health that impacted care today? How? (Homelessness, low income, unemployed, alcoholism, drug addiction, transportat ion, low edu. Level, literacy, decrease access to med. care, nursing home, rehab)? @ -No Was there de-escalation of care discussed even if they declined (Discuss DNR or withdrawal of care, Hospice)? DNR status @ -No What co-morbidities impacted this encounter? (DM, HTN, Smoking, COPD, CAD, Cancer, CVA, ARF, Chemo, Hep., AIDS, mental health diagnosis, sleep apnea, morbid obesity)? @ -None Was patient admitted / discharged? Hospital course, mention meds given and route, prescriptions, significant lab abnormalities, going to OR and other pertinent info. @ -Patient reevaluated and resting comfortably in bed. Patient is updated on results and plan. Patient will be admitted with cardiac consult. Undiagnosed new problem with uncertain prognosis? @ -No Drug Therapy requiring intensive monitoring for toxicity (Heparin, Nitro, Insulin, Cardizem)? @ -No Were any procedures done? @ -No Diagnosis/symptom? @ -Syncope, V. tach Acute, or Chronic, or Acute on Chronic? @ -Acute, acute Uncomplicated (without systemic symptoms) or Complicated (systemic symptoms)? @ -default Side effects of treatment? @ -No Exacerbation, Progression, or Severe Exacerbation? @ -No Poses a threat to life or bodily function? How? (Chest pain, USA, ME, pneumonia, PE, COPD, DKA, ARF, appy, cholecystitis, CVA, Diverticulitis, Homicidal, Suicidal, threat to staff... and all critical care pts) @ -Ventricular tachycardia has potential to hypoperfuse\ or cause cardiac arrest. - Lab Data Result diagrams: 01/28/23 11:22 01/28/23 11:22 Lab Results 01/28/23 01/28/23 01/28/23 Range/Units 11:14 11:22 11:22 WBC 5.1 (3.8-10.6) k/uL RBC 3.90 L (4.30-5.90) m/uL Hgb 12.0 L (13.0-17.5) gm/dL Hct 37.7 L (39.0-53.0) % MCV 96.7 (80.0-100.0) fL MCH 30.9 (25.0-35.0) pg MCHC 31.9 (31.0-37.0) g/dL RDW 15.2 (11.5-15.5) % Plt Count 185 (150-450) k/uL MPV 8.9 Neutrophils % 63 % Lymphocytes % 23 % Monocytes % 8 % Eosinophils % 3 % Basophils % 0 % Neutrophils # 3.2 (1.3-7.7) k/uL Lymphocytes # 1.2 (1.0-4.8) k/uL Monocytes # 0.4 (0-1.0) k/uL Eosinophils # 0.2 (0-0.7) k/uL Basophils # 0.0 (0-0.2) k/uL PT 10.1 (9.0-12.0) sec INR 1.0 (<1.2) APTT 25.9 (22.0-30.0) sec Sodium (137-145) mmol/L Potassium (3.5-5.1) mmol/L Chloride (98-107) mmol/L Carbon Dioxide (22-30) mmol/L Anion Gap mmol/L BUN (9-20) mg/dL Creatinine (0.66-1.25) mg/dL Est GFR (CKD-EPI)AfAm (>60 ml/min/1.73 sqM) Est GFR (CKD-EPI)NonAf (>60 ml/min/1.73 sqM) Glucose (74-99) mg/dL POC Glucose (mg/dL) 47 L (70-110) mg/dL POC Glu Planetarium Technician ID Chong Hernandez Calcium (8.4-10.2) mg/dL Magnesium (1.6-2.3) mg/dL Total Bilirubin (0.2-1.3) mg/dL AST (17-59) U/L ALT (4-49) U/L Alkaline Phosphatase (38-126) U/L Troponin I (0.000-0.034) ng/mL Total Protein (6.3-8.2) g/dL Albumin (3.5-5.0) g/dL TSH (0.465-4.680) mIU/L Free T4 (0.78-2.19) ng/dL Free T3 pg/mL (2.8-5.3) pg/ml 01/28/23 01/28/23 01/28/23 Range/Units 11:22 11:22 11:58 WBC (3.8-10.6) k/uL RBC (4.30-5.90) m/uL Hgb (13.0-17.5) gm/dL Hct (39.0-53.0) % MCV (80.0-100.0) fL MCH (25.0-35.0) pg MCHC (31.0-37.0) g/dL RDW (11.5-15.5) % Plt Count (150-450) k/uL MPV Neutrophils % % Lymphocytes % % Monocytes % % Eosinophils % % Basophils % % Neutrophils # (1.3-7.7) k/uL Lymphocytes # (1.0-4.8) k/uL Monocytes # (0-1.0) k/uL Eosinophils # (0-0.7) k/uL Basophils # (0-0.2) k/uL PT (9.0-12.0) sec INR (<1.2) APTT (22.0-30.0) sec Sodium 137 (137-145) mmol/L Potassium 4.2 (3.5-5.1) mmol/L Chloride 101 (98-107) mmol/L Carbon Dioxide 27 (22-30) mmol/L Anion Gap 9 mmol/L BUN 53 H (9-20) mg/dL Creatinine 5.71 H (0.66-1.25) mg/dL Est GFR (CKD-EPI)AfAm 12 (>60 ml/min/1.73 sqM) Est GFR (CKD-EPI)NonAf 10 (>60 ml/min/1.73 sqM) Glucose 40 L* (74-99) mg/dL POC Glucose (mg/dL) 105 (70-110) mg/dL POC Glu Planetarium Technician ID Cheryl Lawson Calcium 8.1 L (8.4-10.2) mg/dL Magnesium 2.5 H (1.6-2.3) mg/dL Total Bilirubin 0.5 (0.2-1.3) mg/dL AST 26 (17-59) U/L ALT 22 (4-49) U/L Alkaline Phosphatase 108 (38-126) U/L Troponin I 0.024 (0.000-0.034) ng/mL Total Protein 6.6 (6.3-8.2) g/dL Albumin 3.7 (3.5-5.0) g/dL TSH 6.520 H (0.465-4.680) mIU/L Free T4 1.02 (0.78-2.19) ng/dL Free T3 pg/mL 4.5 (2.8-5.3) pg/ml 01/28/23 01/28/23 Range/Units 12:33 13:02 WBC (3.8-10.6) k/uL RBC (4.30-5.90) m/uL Hgb (13.0-17.5) gm/dL Hct (39.0-53.0) % MCV (80.0-100.0) fL MCH (25.0-35.0) pg MCHC (31.0-37.0) g/dL RDW (11.5-15.5) % Plt Count (150-450) k/uL MPV Neutrophils % % Lymphocytes % % Monocytes % % Eosinophils % % Basophils % % Neutrophils # (1.3-7.7) k/uL Lymphocytes # (1.0-4.8) k/uL Monocytes # (0-1.0) k/uL Eosinophils # (0-0.7) k/uL Basophils # (0-0.2) k/uL PT (9.0-12.0) sec INR (<1.2) APTT (22.0-30.0) sec Sodium (137-145) mmol/L Potassium (3.5-5.1) mmol/L Chloride (98-107) mmol/L Carbon Dioxide (22-30) mmol/L Anion Gap mmol/L BUN (9-20) mg/dL Creatinine (0.66-1.25) mg/dL Est GFR (CKD-EPI)AfAm (>60 ml/min/1.73 sqM) Est GFR (CKD-EPI)NonAf (>60 ml/min/1.73 sqM) Glucose (74-99) mg/dL POC Glucose (mg/dL) 73 74 (70-110) mg/dL POC Glu Planetarium Technician Raji Pool Michael Calcium (8.4-10.2) mg/dL Magnesium (1.6-2.3) mg/dL Total Bilirubin (0.2-1.3) mg/dL AST (17-59) U/L ALT (4-49) U/L Alkaline Phosphatase (38-126) U/L Troponin I (0.000-0.034) ng/mL Total Protein (6.3-8.2) g/dL Albumin (3.5-5.0) g/dL TSH (0.465-4.680) mIU/L Free T4 (0.78-2.19) ng/dL Free T3 pg/mL (2.8-5.3) pg/ml Disposition Clinical Impression: Syncope, Ventricular tachycardia Disposition: ADMITTED IP TO THIS HOSP Is patient prescribed a controlled substance at d/c from ED?: No Referrals: Dotty Gibbs MD [Primary Care Provider] - 1-2 days Time of Disposition: 13:14
[2023-01-28] MEDS ORDERED: DEXTROSE 50% SYRINGE 50 ML IVP STA (11:26)
--- NOTE | 2023-01-28 11:28 | XR ---
EXAMINATION TYPE: XR chest 1V portable DATE OF EXAM: 01/28/2023 COMPARISON: 06/19/2022 INDICATION: Syncope TECHNIQUE: Single frontal view of the chest is obtained. FINDINGS: The heart size is moderately prominent. The pulmonary vasculature is normal. Pacemaker overlies the right chest. The lungs are clear. IMPRESSION: 1. Moderate cardiomegaly.
[2023-01-28 11:59] LABS: Glucose,Whole Blood 105 mg/dL (70-110)
[2023-01-28 12:08] LABS: Basophils % (A) 0 %; Eosinophils # (A) 0.2 k/uL (0-0.7); Eosinophils % (A) 3 %; HCT 37.7 % (39.0-53.0); Lymphocytes # (A) 1.2 k/uL (1.0-4.8); Lymphocytes % (A) 23 %; MCH 30.9 pg (25.0-35.0); MCHC 31.9 g/dL (31.0-37.0); MCV 96.7 fL (80.0-100.0); Mean Platelet Volume 8.9; Monocytes # (A) 0.4 k/uL (0-1.0); Monocytes % (A) 8 %; Neutrophils # (A) 3.2 k/uL (1.3-7.7); Neutrophils % (A) 63 %; Platelet Count 185 k/uL (150-450); RDW 15.2 % (11.5-15.5); WBC 5.1 k/uL (3.8-10.6)
[2023-01-28 12:14] LABS: Partial Thromboplastin Time 25.9 sec (22.0-30.0); Prothrombin Time 10.1 sec (9.0-12.0)
[2023-01-28 12:26] LABS: ALT 22 U/L (4-49); AST 26 U/L (17-59); African American GFR (CKD) 12 (>60 ml/min/1.73 sqM); Albumin 3.7 g/dL (3.5-5.0); Alkaline Phosphatase 108 U/L (38-126); Anion Gap 9 mmol/L; Blood Urea Nitrogen 53 mg/dL (9-20); Calcium 8.1 mg/dL (8.4-10.2); Carbon Dioxide 27 mmol/L (22-30); Chloride 101 mmol/L (98-107); Magnesium 2.5 mg/dL (1.6-2.3); Non-African American GFR(CKD) 10 (>60 ml/min/1.73 sqM); Potassium 4.2 mmol/L (3.5-5.1); Sodium 137 mmol/L (137-145); Total Bilirubin 0.5 mg/dL (0.2-1.3); Total Protein 6.6 g/dL (6.3-8.2)
[2023-01-28 12:34] LABS: Glucose 40 mg/dL (74-99)
[2023-01-28 12:35] LABS: Glucose,Whole Blood 73 mg/dL (70-110)
[2023-01-28 12:42] LABS: T4, Free (Free Thyroxine) 1.02 ng/dL (0.78-2.19)
[2023-01-28 13:04] LABS: Glucose,Whole Blood 74 mg/dL (70-110)
[2023-01-28] MEDS ORDERED: NALOXONE 0.4 MG/ML 1 ML VIAL IV PRN (13:59)
[2023-01-28 14:30] VITALS: BP 150/92; PULSE 69
[2023-01-28] MEDS ORDERED: FAMOTIDINE 20 MG TAB PO SCH ×2 (21:00)
== END 2023-01-28 14:35 | disposition left against medical advice (07) ==
LOC: EC 11:06 → 3SCARD 13:59
PROVIDERS: ADMIT Student in an Organized Health Care Education/Training Program; ATTEND Student in an Organized Health Care Education/Training Program
DX: I47.20 Ventricular tachycardia, unspecified (principal); I13.0 Hypertensive heart and chronic kidney disease with heart failure and stage 1 through stage 4 chronic kidney disease, or unspecified chronic kidney disease; N18.4 Chronic kidney disease, stage 4 (severe); I44.7 Left bundle-branch block, unspecified; E11.9 Type 2 diabetes mellitus without complications; Z79.82 Long term (current) use of aspirin; Z79.4 Long term (current) use of insulin; Z96.41 Presence of insulin pump (external) (internal); Z79.899 Other long term (current) drug therapy; Z88.8 Allergy status to other drugs, medicaments and biological substances; Z95.1 Presence of aortocoronary bypass graft; Z87.442 Personal history of urinary calculi; Z95.810 Presence of automatic (implantable) cardiac defibrillator
CPT/HCPCS: 96374; 99285; 36415; 93005; 84439; 84481; 80053; 83735; 84443; 84484; 85025; 85610; 85730; 71045; G0378

== ENCOUNTER 2023-04-13 09:25 | Emergency (ER) | payer MEDICARE ==
[2023-04-13 09:55] VITALS: TEMP 98.1
--- NOTE | 2023-04-13 10:07 | ED ---
General Adult HPI - General Chief complaint: Extremity Problem,Nontraumatic Stated complaint: R arm pain Time Seen by Provider: 04/13/23 09:37 Source: patient Mode of arrival: ambulatory Limitations: no limitations - History of Present Illness Initial comments: Dictation was produced using Undertone dictation software. please excuse any grammatical, word or spelling errors. Chief Complaint: 58-year-old male presents with arm pain History of Present Illness: 58-year-old male presents emergency Department with right arm, shoulders and chest pain. Patient states that over the last couple days he's been having pain to his right arm. States that it hurts and feels almost like it's hypersensitive to the touch. Patient otherwise has no numbness Paresthesias to the arms. He has extensive history with pacemaker placement. A month ago he had a new pacer placed. Hasn't really had any issues since then. Denies any short of breath. No substernal chest pressure. Denies any nausea or diaphoresis. The ROS documented in this emergency department record has been reviewed and confirmed by me. Those systems with pertinent positive or negative responses have been documented in the HPI. All other systems are other negative and/or noncontributory. - Related Data Home Medications Medication Instructions Recorded Confirmed Aspirin EC [Ecotrin Low Dose] 81 mg PO DAILY 10/14/19 06/19/22 Insulin Aspart (For Pump) [NovoLOG 0.01 unit SQ-PUMP CONTINUOUS 10/14/19 06/19/22 (For Pump)] Nitroglycerin Sl Tabs [Nitrostat] 0.4 mg SL Q5M PRN 10/14/19 06/19/22 carvediloL 12.5 mg PO BID 10/14/19 06/19/22 Alirocumab [Praluent Pen] 150 mg SQ Q14D 12/23/19 06/19/22 Zinc Gluconate [Zinc] 50 mg PO DAILY 04/07/20 06/19/22 Enalapril [Vasotec] 5 mg PO BID 09/18/21 06/19/22 Cholecalciferol [Vitamin D3 (25 25 mcg PO DAILY 06/19/22 06/19/22 Mcg = 1000 Iu)] Previous Rx's Medication Instructions Recorded HYDROcodone/APAP 5-325MG [[place] 1 tab PO Q6HR PRN 3 Days #12 tab 06/15/22 5-325] Ondansetron Odt [Zofran ODT] 4 mg PO Q8HR PRN #20 tab 06/15/22 Tamsulosin [Flomax] 0.4 mg PO DAILY #14 cap 06/15/22 Acetaminophen Tab [Tylenol] 650 mg PO Q6HR PRN tab 06/18/22 Cefdinir [Omnicef] 300 mg PO Q12HR #6 capsule 06/18/22 Furosemide [Lasix] 40 mg PO DAILY #30 tablet 06/18/22 Cephalexin [Keflex] 500 mg PO Q6HR #40 cap 06/19/22 Allergies Allergy/AdvReac Type Severity Reaction Status Date / Time Uteslrv-[id number]-AxT Reductase Allergy Swelling Verified 04/13/23 09:33 Inhibitor fish oil AdvReac Chest Pain Verified 11/07/22 20:04 omega-3 acid ethyl esters AdvReac Chest Pain Verified 11/07/22 20:04 [From Lovaza] promethazine [From Phenergan] AdvReac Hallucinati Verified 11/07/22 20:04 ons Review of Systems ROS Statement: Those systems with pertinent positive or pertinent negative responses have been documented in the HPI. ROS Other: All systems not noted in ROS Statement are negative. Past Medical History Past Medical History: Heart Failure, Diabetes Mellitus, Hypertension, Renal Disease Additional Past Medical History / Comment(s): CHF. peritoneal port in abdomen. stage 4 kidney failure. History of Any Multi-Drug Resistant Organisms: None Reported Past Surgical History: Coronary Bypass/CABG, Heart Catheterization With Stent Additional Past Surgical History / Comment(s): Port in abdomen. X6. Defibrillator. Hernia Repair - inguinal. kidney stone remval. Open heart Past Anesthesia/Blood Transfusion Reactions: No Reported Reaction Date of Last Stent Placement:: 2010 Type of Cardiac Device: AICD Device Placement Date:: 2007 Past Psychological History: No Psychological Hx Reported Smoking Status: Never smoker Past Alcohol Use History: None Reported Past Drug Use History: None Reported General Exam - General Exam Comments Initial Comments: PHYSICAL EXAM: General Impression: Alert and oriented x3, not in acute distress HEENT: Normocephalic atraumatic, extra-ocular movements intact, pupils equal and reactive to light bilaterally, mucous membranes moist. Cardiovascular: Heart regular rate and rhythm Chest: Able to complete full sentences, no retractions, no tachypnea Abdomen: abdomen soft, non-tender, non-distended, no organomegaly Musculoskeletal: Pulses present and equal in all extremities, no peripheral edema Motor: no focal deficits noted Neurological: CN II-XII grossly intact, no focal motor or sensory deficits noted Skin: Intact with no visualized rashes Psych: Normal affect and mood Limitations: no limitations Course Vital Signs 04/13/23 04/13/23 09:30 12:00 Temperature 98.1 F Pulse Rate 68 64 Respiratory 20 18 Rate Blood Pressure 134/61 144/86 O2 Sat by Pulse 99 100 Oximetry Medical Decision Making - Medical Decision Making Was pt. sent in by a medical professional or institution (, PA, COPYRIGHT EXPERT, urgent care, hospital, or intermediate...) When possible be specific @ -No Did you speak to anyone other than the patient for history (EMS, parent, family, police, friend...)? What history was obtained from this source @ -No Did you review nursing and triage notes (agree or disagree)? Why? @ -I reviewed and agree with nursing and triage notes Were old charts reviewed (outside hosp., previous admission, EMS record, old EKG, old radiological studies, urgent care reports/EKG's, intermediate records)? Report findings @ -No old charts were reviewed Differential Diagnosis (chest pain, altered mental status, abdominal pain women, abdominal pain men, vaginal bleeding, musculoskeletal, weakness, fever, dyspnea, syncope, headache, dizziness, GI bleed, back pain, seizure, CVA, palpatations, mental health)? @ -Differential Chest Pain: Stable Angina, Unstable Angina, STEMI, NSTEMI Aortic Dissection, Pneumothorax, Musculoskeletal, Esophageal Spasm GERD, Cholecystitis, Pancreatitis, Zoster, this is not meant to be an all-inclusive list. EKG interpreted by me (3pts min.). @ -My EKG interpretation: Ventricular rate 65, paced rhythm,. 177, QRS 109, QTc 542. No SC prolongation, no QTC prolongation, no ST or T-wave changes noted. Overall, this EKG is unremarkable X-rays interpreted by me (1pt min.). @ -Chest x-ray is nonacute CT interpreted by me (1pt min.). @ -None done U/S interpreted by me (1pt. min.). @ -None done What testing was considered but not performed or refused? (CT, X-rays, U/S, labs)? Why? @ -None What meds were considered but not given or refused? Why? @ -None Did you discuss the management of the patient with other professionals (professionals i.e. , PA, COPYRIGHT EXPERT, lab, RT, psych nurse, social work manager, coil machine operator, teacher, co founder and chief strategy officer, major case detective)? Give summary @ -No Was smoking cessation discussed for >3mins.? @ -No Was critical care preformed (if so, how long)? @ -No Were there social determinants of health that impacted care today? How? (Homelessness, low income, unemployed, alcoholism, drug addiction, transportation, low edu. Level, literacy, decrease access to med. care, senior care, rehab)? @ -No Was there de-escalation of care discussed even if they declined (Discuss DNR or withdrawal of care, Hospice)? DNR status @ -No What co-morbidities impacted this encounter? (DM, HTN, Smoking, COPD, CAD, Can cer, CVA, ARF, Chemo, Hep., AIDS, mental health diagnosis, sleep apnea, morbid obesity)? @ -None Was patient admitted / discharged? Hospital course, mention meds given and route, prescriptions, significant lab abnormalities, going to OR and other pertinent info. @ -58-year-old male presents with hyperesthesia to the right upper extremity sh oulder and neck and chest. Vital signs are stable. EKG is unremarkable. Patient well-appearing his symptoms are very atypical for ACS. Laboratory evaluation obtained. CBC unremarkable. Metabolic panel shows worsening creatinine at a level .16. Patient baseline is around 4. Troponin is elev ated 0.049. Labs imaging results were discussed with patient is recommended that he be admitted for monitoring he refused and would prefer to be discharge. He states that recently that this could be a cardiac process. He is also told of his kidney function and still like to be discharged. Patient is of sound mind and judgment. Patient discharged Undiagnosed new problem with uncertain prognosis? @ -No Drug Therapy requiring intensive monitoring for toxicity (Heparin, Nitro, Insulin, Cardizem)? @ -No Were any procedures done? @ -No Diagnosis/symptom? Acute, or Chronic, or Acute on Chronic? Uncomplicated (without systemic symptoms) or Complicated (systemic symptoms)? @ -Arm pain Side effects of treatment? @ -No Exacerbation, Progression, or Severe Exacerbation? @ -No Poses a threat to life or bodily function? How? (Chest pain, [place], [place], pneumonia, PE, COPD, DKA, ARF, appy, cholecystitis, CVA, Diverticulitis, Homicidal, Suicidal, threat to staff... and all critical care pts) @ -No - Lab Data Result diagrams: 04/13/23 10:04/13/23 10:44 Lab Results 04/13/23 04/13/23 04/13/23 Range/Units 10: 10: 10:44 WBC 4.5 (3.8-10.6) k/uL RBC 3.98 L (4.30-5.90) m/uL Hgb 12.7 L (13.0-17.5) gm/dL Hct 38.7 L (39.0-53.0) % MCV 97.2 (80.0-100.0) fL MCH 32.0 (25.0-35.0) pg MCHC 32.9 (31.0-37.0) g/dL RDW 14.0 (11.5-15.5) % Plt Count 139 L (150-450) k/uL MPV 8.4 Neutrophils % 65 % Lymphocytes % 22 % Monocytes % 7 % Eosinophils % 4 % Basophils % 1 % Neutrophils # 3.0 (1.3-7.7) k/uL Lymphocytes # 1.0 (1.0-4.8) k/uL Monocytes # 0.3 (0-1.0) k/uL Eosinophils # 0.2 (0-0.7) k/uL Basophils # 0.0 (0-0.2) k/uL Sodium 139 (137-145) mmol/L Potassium 3.9 (3.5-5.1) mmol/L Chloride 101 (98-107) mmol/L Carbon Dioxide 29 (22-30) mmol/L Anion Gap 9 mmol/L BUN 57 H (9-20) mg/dL Creatinine 6.16 H (0.66-1.25) mg/dL Est GFR (CKD-EPI)AfAm 11 (>60 ml/min/1.73 sqM) Est GFR (CKD-EPI)NonAf 9 (>60 ml/min/1.73 sqM) Glucose 106 H (74-99) mg/dL Calcium 7.6 L (8.4-10.2) mg/dL Troponin I 0.049 H* (0.000-0.034) ng/mL Disposition Clinical Impression: Arm pain Disposition: HOME SELF-CARE Condition: Fair Instructions (If sedation given, give patient instructions): High Troponin Levels (ED) Is patient prescribed a controlled substance at d/c from ED?: No Referrals: Dotty Gibbs MD [Primary Care Provider] - 1-2 days Time of Disposition: 13:09
[2023-04-13 10:32] LABS: Basophils % (A) 1 %; Eosinophils # (A) 0.2 k/uL (0-0.7); Eosinophils % (A) 4 %; HCT 38.7 % (39.0-53.0); HGB 12.7 gm/dL (13.0-17.5); Lymphocytes % (A) 22 %; MCHC 32.9 g/dL (31.0-37.0); MCV 97.2 fL (80.0-100.0); Mean Platelet Volume 8.4; Monocytes # (A) 0.3 k/uL (0-1.0); Monocytes % (A) 7 %; Neutrophils % (A) 65 %; Platelet Count 139 k/uL (150-450); RBC 3.98 m/uL (4.30-5.90); WBC 4.5 k/uL (3.8-10.6)
[2023-04-13 11:10] LABS: African American GFR (CKD) 11 (>60 ml/min/1.73 sqM); Anion Gap 9 mmol/L; Blood Urea Nitrogen 57 mg/dL (9-20); Calcium 7.6 mg/dL (8.4-10.2); Carbon Dioxide 29 mmol/L (22-30); Chloride 101 mmol/L (98-107); Glucose 106 mg/dL (74-99); Non-African American GFR(CKD) 9 (>60 ml/min/1.73 sqM); Potassium 3.9 mmol/L (3.5-5.1); Sodium 139 mmol/L (137-145)
--- NOTE | 2023-04-13 11:28 | XR ---
EXAMINATION TYPE: XR chest 2V DATE OF EXAM: 04/13/2023 COMPARISON: 01/28/2023 HISTORY: Shortness of breath TECHNIQUE: Frontal and lateral views of the chest are obtained. FINDINGS: Scattered senescent parenchymal changes noted. Hyperinflation compatible with COPD. No evidence for infiltrate. No evidence for atelectasis. Heart size is stable. Mediastinal structures are stable and grossly unremarkable. No evidence for hilar prominence. Degenerative changes dorsal spine. IMPRESSION: 1. No evidence for acute pulmonary disease.
[2023-04-13 12:20] VITALS: RESP 18
[2023-04-13 13:32] VITALS: BP 149/85; PULSE 67
== END 2023-04-13 13:23 | disposition home or self-care (01) ==
LOC: EC 09:25
DX: M79.601 Pain in right arm (principal); E11.22 Type 2 diabetes mellitus with diabetic chronic kidney disease; I13.0 Hypertensive heart and chronic kidney disease with heart failure and stage 1 through stage 4 chronic kidney disease, or unspecified chronic kidney disease; I50.9 Heart failure, unspecified; N18.4 Chronic kidney disease, stage 4 (severe); Z88.8 Allergy status to other drugs, medicaments and biological substances; Z91.013 Allergy to seafood; Z79.4 Long term (current) use of insulin; Z79.899 Other long term (current) drug therapy
CPT/HCPCS: 36415; 71046; 80048; 84484; 85025; 93005; 99284

== ENCOUNTER → 2023-04-24 | Outpatient (CLI) | payer MEDICARE ==
--- NOTE | 2023-04-24 09:59 | CT ---
EXAMINATION TYPE: CT sinus wo con DATE OF EXAM: 04/24/2023 COMPARISON: None HISTORY: sinusitis CT DLP: 599.8 mGycm CONTRAST: 0 mL of Isovue 300 The paranasal sinuses are examined in the axial plane at 2 mm thick sections. Reconstructed images i n the coronal plane were obtained. There is dental amalgam scatter artifact There is mucosal thickening within the inferior medial right maxillary sinus. Minimal mucosal thicken ing is within the inferior left maxillary sinus. The ethmoid air cells are clear. The sphenoid sinu ses are clear. The frontal sinuses are clear. The septum is evaluated. There is septal deviation to the left. The ostiomeatal units are patent. A right margarita bullosa is present. IMPRESSION: 1. Mild mucosal thickening maxillary sinuses. Consider mild chronic maxillary sinusitis.
== END | disposition home or self-care (01) ==
LOC: RADCTMAIN 08:25
PROVIDERS: ATTEND Otolaryngology
DX: J32.0 Chronic maxillary sinusitis (principal)
CPT/HCPCS: 70486